=== PATIENT | male | born 2000 | race Asian ===

== ENCOUNTER 2019-03-10 14:12 | Inpatient (IN) ==
[2019-03-10 15:06] LABS: Appearance Urine Clear (Clear); Bilirubin Urine Negative (Negative); Blood Urine Negative (Negative); Color Urine Yellow; Glucose Urine UA Negative (Negative); Ketones Urine Negative (Negative); Leukocyte Esterase Urine Negative (Negative); Nitrite Urine Negative (Negative); Protein Urine Negative (Negative); Specific Gravity Urine 1.017 (1.000-1.030); Urobilinogen Urine Negative (Negative); pH Urine 6.5 (4.5-7.5)
[2019-03-10 15:12] LABS: Basophils # (auto) 0.07 K/uL (0-0.2); Basophils % (auto) 1.3 %; Eosinophils # (auto) 0.25 K/uL (0-0.5); Eosinophils % (auto) 4.8 %; Hematocrit (blood only) 43.1 % (42-52); Immature Granulocytes # (auto) 0.01 K/uL (0.00-0.02); Immature Granulocytes % (auto) 0.2 %; Lymphocytes # (auto) 1.21 K/uL (1.2-3.4); Lymphocytes % (auto) 23.3 %; Mean Corpuscular Hemoglobin 32.2 pg (25-34); Mean Corpuscular Hgb Conc 34.8 g/dL (32-36); Mean Corpuscular Volume 92.5 fL (80-100); Mean Platelet Volume 10.2 fL (7.4-10.4); Monocytes # (auto) 0.43 K/uL (0.11-0.59); Monocytes % (auto) 8.3 %; Neutrophils # (auto) 3.22 K/uL (1.4-6.5); Neutrophils % (auto) 62.1 %; Platelet Count 217 K/uL (130-400); RDW Coefficient of Variation 12.8 % (11.5-14.5); RDW Standard Deviation 43.2 fL (36.4-46.3); Red Blood Count 4.66 M/uL (4.7-6.1); White Blood Count 5.19 K/uL (4.8-10.8)
[2019-03-10 15:25] LABS: Amphetamines+Metham, Urine Neg (Neg); Barbiturates, Urine Neg (Neg); Benzodiazepine, Urine Neg (Neg); Cocaine, Urine Neg (Neg); MDMA (Ecstacy), Urine Neg (Neg); Methadone, Urine Neg (Neg); Opiate, Urine Neg (Neg); Phencyclidine, Urine Neg (Neg)
[2019-03-10 15:36] LABS: Albumin Level 4.4 gm/dl (3.4-5.0); BUN Creatinine Ratio 9.2 (10-20); Calcium 8.9 mg/dl (8.5-10.1); Creatinine Clr Calc Pharmacy 104.4 ml/min; Est GFR (African American) 137.4; Est GFR (Non-African American) 118.6; Potassium 3.8 mmol/L (3.5-5.1)
[2019-03-10 15:46] LABS: Albumin Globulin Ratio 1.4 (0.9-2); Globulin 3.1 gm/dl (2.5-4.0); Thyroid Stimulating Hormone 1.11 uIu/ml (0.300-4.500); Total Protein 7.5 gm/dl (6.4-8.2)
[2019-03-10 16:01] LABS: Acetaminophen < 2 ug/ml (10-30); Salicylate < 1.7 mg/dl (2.8-20)
--- NOTE | 2019-03-10 17:38 | Emergency Department Note ---
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 The patient reports that he went to [facility] and they referred to the ED because of his suicidal thoughts that he has been having for a month. He reports that they have become more frequently recently. The patient states that he has been under stress from school and his friends. He denies any specific suicidal plan. The patient denies any access to weapons. He mentions that he has been excessively sad lately, sleeping more, less energetic, changes in eating habits, and a loss of interest in things. He states that he occasionally smokes marijuana, but denies any other drug use. 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 and A total of 10 systems reviewed and were otherwise negative Physical Exam Vital Signs Vital Signs - 24 hr 03/10/19 14:25 Temperature 36.9 C Temperature Source Oral Sepsis Recent Fever Within 48 Hours No Sepsis New/Unexplained Change in Mental Status No Sepsis Action Taken by Nursing No Action Required Pulse Rate 82 Respiratory Rate 16 Respiratory Effort / Characteristics Non-Labored Respiratory Depth Normal Respiratory Pattern Regular Blood Pressure 129/83 Blood Pressure Mean 98 Blood Pressure Position Sitting Pulse Oximetry 98 Oxygen Delivery Method Room Air Physical Exam GENERAL: He is oriented to person, place, and time. He appears well-developed and well-nourished. He does not appear distressed. ____ HENT: Exam performed. - Head: Normocephalic and atraumatic. - Right Ear: External ear normal. No mastoid tenderness. - Left Ear: External ear normal. No mastoid tenderness. - Mouth/Throat: The oropharynx is clear and moist. No trismus in the jaw. No dental abscesses or uvula swelling. No oropharyngeal exudate or tonsillar abscesses. ____ EYES: Conjunctivae and EOM are normal. Pupils are equal, round, and reactive to light. Right eye exhibits no discharge. Left eye exhibits no discharge. No scleral icterus. ____ NECK: Normal range of motion. Neck supple. No JVD present. No spinous process tenderness present. No carotid bruit present. No rigidity. No tracheal deviation and normal range of motion present. No Brudzinski's sign and no Kernig's sign noted. ____ CV: Normal rate, regular rhythm, normal heart sounds and intact distal pulses. There is no peripheral edema. Palpable radial pulses bue. ____ PULM/CHEST: Effort normal and breath sounds normal. No respiratory distress. No stridor. He has no wheezes. He has no rales. - Chest Wall: He exhibits no tenderness. ____ ABD: The abdomen is soft. Bowel sounds are normal. He has no distension. No mass is present. There is no tenderness. There is no rebound, no guarding, no Sprague's sign and no tenderness at McBurney's point. Rovsig negative MUSC/SKEL: Normal range of motion. There is no peripheral edema, tenderness or deformity. LYMPH: No cervical adenopathy. ____ NEURO: He is alert and oriented to person, place, and time. He has normal strength. No cranial nerve deficit or sensory deficit. Coordination and gait normal. GCS eye subscore is 4. GCS verbal subscore is 5. GCS motor subscore is 6. cerbellar tests wnl. ____ SKIN: Skin is warm and dry. He is not diaphoretic. ____ PSYCH: He has a normal mood and affect. His behavior is normal. Judgment and thought content normal. ____ Course 1454: The patient was evaluated in room A9B, and a complete history and physical examination were performed. 1736: Vital signs stable. Patient medically cleared. Awaiting psychiatric placement. 1819: Patient accept admission to [address] [place] [address]. Medical Decision Making Medical Records Attestation: I reviewed the patient's medical records. Home Medications Current Medication List: was personally reviewed by me Laboratory Data Attestation: I reviewed the patient's lab results. Result diagrams: 03/10/19 14:56 03/10/19 14:56 Lab Results 03/10/19 03/10/19 03/10/19 Range/Units 14:05 14:05 14:56 WBC 5.19 (4.8-10.8) K/uL RBC 4.66 L (4.7-6.1) M/uL Hgb 15.0 (14.0-18.0) g/dL Hct 43.1 (42-52) % MCV 92.5 (80-100) fL MCH 32.2 (25-34) pg MCHC 34.8 (32-36) g/dL RDW Std Deviation 43.2 (36.4-46.3) fL RDW Coeff of Jeffery 12.8 (11.5-14.5) % Plt Count 217 (130-400) K/uL MPV 10.2 (7.4-10.4) fL Immature Gran % (Auto) 0.2 % Neut % (Auto) 62.1 % Lymph % (Auto) 23.3 % [place] % (Auto) 8.3 % Eos % (Auto) 4.8 % Baso % (Auto) 1.3 % Immature Gran # (Auto) 0.01 (0.00-0.02) K/uL Neut # (Auto) 3.22 (1.4-6.5) K/uL Lymph # (Auto) 1.21 (1.2-3.4) K/uL [place] # (Auto) 0.43 (0.11-0.59) K/uL Eos # (Auto) 0.25 (0-0.5) K/uL Baso # (Auto) 0.07 (0-0.2) K/uL Sodium (136-145) mmol/L Potassium (3.5-5.1) mmol/L Chloride (98-107) mmol/L Carbon Dioxide (21-32) mmol/L Anion Gap (3-11) BUN (7-18) mg/dl Creatinine (0.6-1.4) mg/dl Est Cr Clr Drug Dosing ml/min Est GFR ( Amer) Est GFR (Non-Af Amer) BUN/Creatinine Ratio (10-20) Glucose (70-99) mg/dl Calcium (8.5-10.1) mg/dl Total Bilirubin (0.2-1) mg/dl AST (15-37) U/L ALT (12-78) U/L Alkaline Phosphatase (45-117) U/L Total Protein (6.4-8.2) gm/dl Albumin (3.4-5.0) gm/dl Globulin (2.5-4.0) gm/dl Albumin/Globulin Ratio (0.9-2) TSH (0.300-4.500) uIu/ml Urine Color Yellow Urine Appearance Clear (Clear) Urine pH 6.5 (4.5-7.5) Ur Specific [place] 1.017 (1.000-1.030) Urine Protein Negative (Negative) Urine Glucose (UA) Negative (Negative) Urine Ketones Negative (Negative) Urine Blood Negative (Negative) Urine Nitrite Negative (Negative) Urine Bilirubin Negative (Negative) Urine Urobilinogen Negative (Negative) Ur Leukocyte Esterase Negative (Negative) Salicylates (2.8-20) mg/dl Urine Opiates Screen Neg (Neg) Ur Methadone, Qual Neg (Neg) Acetaminophen (10-30) ug/ml Urine Barbiturates Neg (Neg) Ur Phencyclidine (PCP) Neg (Neg) U Amphetamin/Meth Scrn Neg (Neg) MDMA (Ecstasy) Screen Neg (Neg) U Benzodiazepines Scrn Neg (Neg) Ur Cocaine Metabolite Neg (Neg) U Marijuana (THC) Screen Pos H (Neg) Ethyl Alcohol mg/dL (0-3) mg/dl 03/10/19 03/10/19 03/10/19 Range/Units 14:56 14:56 14:56 WBC (4.8-10.8) K/uL RBC (4.7-6.1) M/uL Hgb (14.0-18.0) g/dL Hct (42-52) % MCV (80-100) fL MCH (25-34) pg MCHC (32-36) g/dL RDW Std Deviation (36.4-46.3) fL RDW Coeff of Jeffery (11.5-14.5) % Plt Count (130-400) K/uL MPV (7.4-10.4) fL Immature Gran % (Auto) % Neut % (Auto) % Lymph % (Auto) % [place] % (Auto) % Eos % (Auto) % Baso % (Auto) % Immature Gran # (Auto) (0.00-0.02) K/uL Neut # (Auto) (1.4-6.5) K/uL Lymph # (Auto) (1.2-3.4) K/uL [place] # (Auto) (0.11-0.59) K/uL Eos # (Auto) (0-0.5) K/uL Baso # (Auto) (0-0.2) K/uL Sodium 138 (136-145) mmol/L Potassium 3.8 (3.5-5.1) mmol/L Chloride 105 (98-107) mmol/L Carbon Dioxide 28 (21-32) mmol/L Anion Gap 5.0 (3-11) BUN 9 (7-18) mg/dl Creatinine 0.93 (0.6-1.4) mg/dl Est Cr Clr Drug Dosing 104.4 ml/min Est GFR ( Amer) 137.4 Est GFR (Non-Af Amer) 118.6 BUN/Creatinine Ratio 9.2 L (10-20) Glucose 88 (70-99) mg/dl Calcium 8.9 (8.5-10.1) mg/dl Total Bilirubin 1.0 (0.2-1) mg/dl AST 12 L (15-37) U/L ALT 20 (12-78) U/L Alkaline Phosphatase 93 (45-117) U/L Total Protein 7.5 (6.4-8.2) gm/dl Albumin 4.4 (3.4-5.0) gm/dl Globulin 3.1 (2.5-4.0) gm/dl Albumin/Globulin Ratio 1.4 (0.9-2) TSH 1.110 (0.300-4.500) uIu/ml Urine Color Urine Appearance (Clear) Urine pH (4.5-7.5) Ur Specific [place] (1.000-1.030) Urine Protein (Negative) Urine Glucose (UA) (Negative) Urine Ketones (Negative) Urine Blood (Negative) Urine Nitrite (Negative) Urine Bilirubin (Negative) Urine Urobilinogen (Negative) Ur Leukocyte Esterase (Negative) Salicylates < 1.7 L (2.8-20) mg/dl Urine Opiates Screen (Neg) Ur Methadone, Qual (Neg) Acetaminophen < 2 L (10-30) ug/ml Urine Barbiturates (Neg) Ur Phencyclidine (PCP) (Neg) U Amphetamin/Meth Scrn (Neg) MDMA (Ecstasy) Screen (Neg) U Benzodiazepines Scrn (Neg) Ur Cocaine Metabolite (Neg) U Marijuana (THC) Screen (Neg) Ethyl Alcohol mg/dL < 3.0 (0-3) mg/dl Blood Pressure Blood Pressure Findings: Normal blood pressure Blood Pressure Disposition: did not require urgent referral MDM Narrative Patient accept admission to [address] [place] [address]. Impression & Plan Suicidal ideation, Depression Discharge Plan Visit Data *Final* Discharge Date/Time: 03/10/19 18:30 Chief Complaint: Mental Health Evaluation Stated Complaint: MENTAL HEALTH EVALUATION ED Provider: Rickey Alexandre Discharge Problem: Suicidal ideation, Depression Patient Disposition: Admitted As Inpatient Discharge Instructions Interventions: ED Discharge Assessment Last Done: 03/10/19 18:30 Discharge Problem: Depression Qualifiers: Depression Type: unspecified Qualified Code(s): F32.9 - Major depressive disorder, single episode, unspecified The scribe's documentation has been prepared under my direction and personally reviewed by me in its entirety. I confirm that the note above accurately reflects all work, treatment, procedures, and medical decision making performed by me.
[2019-03-10] MEDS ORDERED: ACETAMINOPHEN 325 MG TAB PO PRN (17:52)
[2019-03-10] MEDS ORDERED: MAGNESIUM HYDROXIDE SUSP 30 ML UDC PO PRN (17:52)
[2019-03-10] MEDS ORDERED: ALUMINUM/MAGNESIUM SUSP 30 ML UDC PO PRN (17:52)
[2019-03-10] MEDS ORDERED: SODIUM CHLORIDE 0.65% NA SOLN 45 ML (OCEAN) PRN (17:52)
[2019-03-10] MEDS ORDERED: BISMUTH SUBSALICYLATE PER ML OMNICELL CHARGE PO PRN (17:52)
[2019-03-10] MEDS ORDERED: ALBUTEROL HFA INHALER 8.5 GM INH PRN (17:55)
[2019-03-10 18:32] VITALS: O2SAT 97
--- NOTE | 2019-03-11 13:59 | History & Physical ---
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 He reports limited communication with parents, but good support from friends. He is struggling academically and doing poorly in school, as he has not been functioning due to the severity of his depression. He has no outpatient providers, and is declining antidepressant medication, due to fears that he would be calm dependent on it. He does report abusing cannabis, and thinks it is making him feel worse. He is willing for inpatient treatment, which is medically necessary due to the severity of his symptoms and risk for suicide if discharged. (1) Suicidal ideation: Every 15 minute checks for safety. Encourage group attendance and participation. Work on healthy coping skills and discharge safety plan. Encourage family meeting with his primary supports. He indicates he does not share details of his personal life with parents, and they are not aware he has been struggling emotionally Present on Admission?: Yes (2) Depression: 03/11 -discussed diagnoses and treatment recommendations, including the option of antidepressant medication, which he is declining. Discussed the role of antidepressants, what they can help with and what they do not, the role of psychotherapy, good self-care, and behavioral techniques to improve mood. Also discussed recommendations to abstain from other psychoactive substances, and patient reports he has been abusing THC and thinks it is making him feel worse. Continue to provide psychoeducation and support about treatment options, as well as motivational interviewing. -Coordinate care with [facility], and refer him for outpatient therapy. -Coordinate with the [place] regarding his academic standing. Depression Type: unspecified Qualified Code(s): F32.9 - Major depressive disorder, single episode, unspecified Present on Admission?: Yes (3) Asthma: Continue albuterol inhaler as needed. Patient reports hospitalization 2 months ago for pneumomediastinum. He says he was prescribed an inhaler, but has stopped using it, and was supposed to follow up with a manager body, but did not. Refer him to [facility] for outpatient follow-up. Present on Admission?: Yes Risk Factors Assessment Male: No Do You Have Access To A Gun?: No Health Problems: Yes Mental Health Diagnoses: Yes Substance Use Disorders: Yes Previous Attempt: No Previous Psychiatric Hospitalization: No Hopelessness: Yes Smoker: No Protective Factors Assessment Jehovah'S Witness Beliefs: No : No Responsible for Young Children: No Employed: No Stable Relationships: Yes Supportive Family: Yes Good Rapport with Provider: No Psychiatric History Identifying Data GLEN GARCIA is a 18-year-old [employer] student from the [place] area who was referred to the hospital by [facility] after he presented there with suicidal ideation and multiple plans. He was admitted on 03/10/19 17:53 on a 201 voluntary commitment. Chief Complaint "I think it's been building". History of Present Illness The patient presented to the ER yesterday, 03/10/2019, reporting worsening depression over the past month. He endorsed suicidal thoughts to cut himself, overdose on pills, or shoot himself, stating "whichever is fastest." He reported high anxiety, with palpitations, shakiness, poor focus, and rapid breathing. He endorsed poor sleep overnight (3-4 hours a night), with inability to fall asleep and then sleeping through the day and missing class. He reported poor supports locally, and poor academic performance. He reported stress due to questioning his gender identity, and struggled to elaborate on this. He reported regular marijuana use and drug screen was positive for THC; labs were otherwise normal. He agreed to sign in voluntarily. On my assessment today, he reports his mood has been worsening "for a long time, I just didn't notice it until about a month ago." In the past month, he has been sleeping excessively, smoking more pot, not enjoying things as much, isolating and not socializing, not going to class or keeping up with assignments. Appetite is decreased, but eats fast food after smoking pot, and weight has been stable. He started having suicidal thoughts in the past 2-4 months, which have become "more persistent, more graphic, specific." He reports thinking "there's really nothing stopping me from ending my life, I could do it physically...but I guess my friends would be really upset if I did it, and maybe my family too." He went to [facility] yesterday as "I just didn't want to feel like that any more." He states he had considered therapy at age 14 when he told his parents he was cowart, but they would only pay for a hinduism therapist, so he declined. States his relationship with parents has been distant ever since, and he doesn't talk to them about personal things anymore. Reports anxiety that started around age 10-11 when he "realized I was cowart," and is now exacerbated by relationships and school. Reports "a little bit" of relationship stress, stating his only relationship (earlier this year) was "bad," and as a result he "alienated all of my friends." After some discussion he states the relationship is "probably the whole reason" he is depressed. States he met his ex-boyfriend, B, last year when he was a freshman, and "got me into drag, we started doing that together." Another male, R, then transferred in and started hanging out with his friend B, and they were "not dating, but together." R then started coming over to the patient's room and they were intimate, but B found out and was very hurt and upset with the patient. The patient and R continued to spend time together and ultimately B found out and "really freaked out on me, said some things." He was willing to forgive Glen if he "cut R out, and I tried to but I couldn't." The patient and R then had a relationship for a while, although he says "I really didn't want to be, but he was the only person I had," as all his other friends withdrew because of the way he'd treated B. R ultimately broke up with him "because his brother was a drug addict, and he didn't want to drag me through it." He had been planning to hang out with R all summer as they are both from the [place] area, "but then I spent the summer alone." He still has sporadic contact with R, and is again friends with B. States he feels upset whenever he thinks about it, because "I let it all happen, didn't even like him," also states he "thinks he just liked me because of the way I look." Reports episode of pneumomediastinum in Dec. just prior to returning to school, was hospitalized for a few days, and was supposed to follow up with a manager body, but has not done so. He was also supposed to use an inhaler (not Albuterol, can't recall name) bid, but hasn't been doing that either. He does not want to consider medications, stating he is worried he would be "dependent" on them, noting a tendency to "abuse anything that makes me feel better." Reports increasing his marijuana use, and thinks it is making him feel worse in the long run. Past Psychiatric History Previous Psych History: Denies Current Psychiatric Diagnosis: MDD Outpatient Services: None Previous Psych Admissions: None Do You Have Access To A Gun?: No History of Previous Suicide Attempt: No Past Medication Trials: None Allergies Allergy/AdvReac Type Severity Reaction Status Date / Time amoxicillin Allergy Hives Unverified 03/10/19 14:58 cashew nut Allergy Anaphylaxis Unverified 03/10/19 14:58 Home Medications Home Medications Medication Instructions Recorded Confirmed Type albuterol sulfate 2 inh INHALATION QID PRN 03/10/19 03/10/19 History Family History Family History of: Doesn't Know Family Mental Health History Comment: Not discussed in his family Alcohol History Hx of Alcohol Use Over the Past 12 Months: No AUDIT Total Score: 0 Smoking Use Have You Smoked or Used Tobacco Products in the Last 30 Days: No Smoking Status: Never smoker Substance History Hx of Prescription Med Misuse Over the Past 12 Months: No Hx of Over the Counter Med Misuse Over the Past 12 Months: No Hx of Inhalent Misuse Over the Past 12 Months: No Hx of Organic Substance Use Over the Past 12 Months: Yes (marijuana 3-4x/week, 2-3 bowls) Hx of Illegal Substances/Street Drug Use Over Past 12 Months: No Problems as a Result of Past Substance Use: None Identified Personal History Living Arrangements: Dorm Childhood: Grew up in [facility], raised by bother parents. Only child Highest Grade Completed: Some College Highest Grade Completed Comment: Sophomore at [employer], majoring in Sudanese and sociology, with minor in Slovak. GPA last semester was 3.6, now struggling, missing morning classes, "doing really bad." Employment Status: Student Marital Status: Single Number Of Children: 0 Beliefs That Will Affect Care: None Hx Traumatic Life Events: Yes Psychological Trauma History Comment: Kicked out of his [employer] HS at age 16 "for being cowart." Had been going to [employer] school his whole life prior to that, and school administrators looked up his social media profile to get proof. Feels it "defined that whole part of my life," as he lost his friend group and was "left out," had to transfer to a new school, and went from a class with 70 kids to one with 700 friends. Patient History Medical History No significant past medical history (Acute) Social History Preferred Language: Sudanese Communication Ability: Effective Powder Operator Required: No Beliefs That Will Affect Care: None Feels Safe at Home: Yes Smoking Status: Never smoker Review of Systems Review of Systems: All systems reviewed & are unremarkable except as noted in HPI & below Physical Exam Psychiatric: Orientation: alert, oriented x 3 and cooperative Apperance: appropriately dressed, appropriately groomed and appeared stated age Eye Contact: good eye contact Motor Behavior: steady gait and station mild fidgeting Spontaneous, soft Affect: + depressed affect, + anxious affect, + constricted affect and mood congruent with affect Mood: + depressed mood and + anxious mood Thought Process: goal directed thought process Thought Content: + cognitive distortions, + hopelessness, + worthlessness, + guilt and + self deprecation Suicidal Thoughts: + reports suicidal thoughts Homicidal Thoughts: denies homicidal thoughts Hallucinations: no auditory hallucinations and no visual hallucinations Cognition: recent memory grossly intact, remote memory grossly intact, attention grossly intact and language grossly intact Estimated Intelligence: consistent with education level Insight: + fair insight Judgement: + fair judgement Vital Signs (Past 24 Hours): Last Vital Signs Temp 36.4 C L 03/11/19 06:50 Pulse 93 H 03/11/19 06:51 Resp 18 03/11/19 06:50 BP 110/75 03/11/19 06:51 Pulse Ox 97 03/10/19 19:23 Exam Statement: A physical exam was performed in the ER prior to admission to the unit by Dr. Alexandre. I accept that physical as correct/medical clearance for the inpatient physical exam. Results & Data Laboratory Results Laboratory Results - last 24 hr 03/10/19 03/10/19 03/10/19 14:05 14:05 14:05 WBC RBC Hgb Hct MCV MCH MCHC RDW Std Deviation RDW Coeff of Jeffery Plt Count MPV Immature Gran % (Auto) Neut % (Auto) Lymph % (Auto) Dale % (Auto) Eos % (Auto) Baso % (Auto) Immature Gran # (Auto) Neut # (Auto) Lymph # (Auto) Dale # (Auto) Eos # (Auto) Baso # (Auto) Sodium Potassium Chloride Carbon Dioxide Anion Gap BUN Creatinine Est Cr Clr Drug Dosing Est GFR ( Amer) Est GFR (Non-Af Amer) BUN/Creatinine Ratio Glucose Calcium Total Bilirubin AST ALT Alkaline Phosphatase Total Protein Albumin Globulin Albumin/Globulin Ratio TSH Urine Color Yellow Urine Appearance Clear Urine pH 6.5 Ur Specific [place] 1.017 Urine Protein Negative Urine Glucose (UA) Negative Urine Ketones Negative Urine Blood Negative Urine Nitrite Negative Urine Bilirubin Negative Urine Urobilinogen Negative Ur Leukocyte Esterase Negative Salicylates Urine Opiates Screen Neg Ur Methadone, Qual Neg Acetaminophen Urine Barbiturates Neg Ur Phencyclidine (PCP) Neg U Amphetamin/Meth Scrn Neg MDMA (Ecstasy) Screen Neg U Benzodiazepines Scrn Neg Ur Cocaine Metabolite Neg U Marijuana (THC) Screen Pos H U Marijuana THC Carboxy Pending Ethyl Alcohol mg/dL 03/10/19 03/10/19 03/10/19 14:56 14:56 14:56 WBC 5.19 RBC 4.66 L Hgb 15.0 Hct 43.1 MCV 92.5 MCH 32.2 MCHC 34.8 RDW Std Deviation 43.2 RDW Coeff of Jeffery 12.8 Plt Count 217 MPV 10.2 Immature Gran % (Auto) 0.2 Neut % (Auto) 62.1 Lymph % (Auto) 23.3 Dale % (Auto) 8.3 Eos % (Auto) 4.8 Baso % (Auto) 1.3 Immature Gran # (Auto) 0.01 Neut # (Auto) 3.22 Lymph # (Auto) 1.21 Dale # (Auto) 0.43 Eos # (Auto) 0.25 Baso # (Auto) 0.07 Sodium 138 Potassium 3.8 Chloride 105 Carbon Dioxide 28 Anion Gap 5.0 BUN 9 Creatinine 0.93 Est Cr Clr Drug Dosing 104.4 Est GFR ( Amer) 137.4 Est GFR (Non-Af Amer) 118.6 BUN/Creatinine Ratio 9.2 L Glucose 88 Calcium 8.9 Total Bilirubin 1.0 AST 12 L ALT 20 Alkaline Phosphatase 93 Total Protein 7.5 Albumin 4.4 Globulin 3.1 Albumin/Globulin Ratio 1.4 TSH 1.110 Urine Color Urine Appearance Urine pH Ur Specific [place] Urine Protein Urine Glucose (UA) Urine Ketones Urine Blood Urine Nitrite Urine Bilirubin Urine Urobilinogen Ur Leukocyte Esterase Salicylates < 1.7 L Urine Opiates Screen Ur Methadone, Qual Acetaminophen < 2 L Urine Barbiturates Ur Phencyclidine (PCP) U Amphetamin/Meth Scrn MDMA (Ecstasy) Screen U Benzodiazepines Scrn Ur Cocaine Metabolite U Marijuana (THC) Screen U Marijuana THC Carboxy Ethyl Alcohol mg/dL 03/10/19 14:56 WBC RBC Hgb Hct MCV MCH MCHC RDW Std Deviation RDW Coeff of Jeffery Plt Count MPV Immature Gran % (Auto) Neut % (Auto) Lymph % (Auto) Dale % (Auto) Eos % (Auto) Baso % (Auto) Immature Gran # (Auto) Neut # (Auto) Lymph # (Auto) Dale # (Auto) Eos # (Auto) Baso # (Auto) Sodium Potassium Chloride Carbon Dioxide Anion Gap BUN Creatinine Est Cr Clr Drug Dosing Est GFR ( Amer) Est GFR (Non-Af Amer) BUN/Creatinine Ratio Glucose Calcium Total Bilirubin AST ALT Alkaline Phosphatase Total Protein Albumin Globulin Albumin/Globulin Ratio TSH Urine Color Urine Appearance Urine pH Ur Specific [place] Urine Protein Urine Glucose (UA) Urine Ketones Urine Blood Urine Nitrite Urine Bilirubin Urine Urobilinogen Ur Leukocyte Esterase Salicylates Urine Opiates Screen Ur Methadone, Qual Acetaminophen Urine Barbiturates Ur Phencyclidine (PCP) U Amphetamin/Meth Scrn MDMA (Ecstasy) Screen U Benzodiazepines Scrn Ur Cocaine Metabolite U Marijuana (THC) Screen U Marijuana THC Carboxy Ethyl Alcohol mg/dL < 3.0 Current Inpatient Medications Current Inpatient Medications: Current Inpatient Medications Acetaminophen (Tylenol) 650 mg PO Q4H PRN PRN Reason: Headache or Minor Fever Stop: 04/09/19 17:51 Al Hydrox/Mg Hydrox/Simethicone (Maalox) 30 ml PO Q4H PRN PRN Reason: GI Upset Stop: 04/09/19 17:51 Albuterol (Proair Hfa) 2 puffs INH QID PRN PRN Reason: Shortness Of Breath Bismuth Subsalicylate (Kaopectate) 15 ml PO PRN PRN PRN Reason: Loose Stool Stop: 04/09/19 17:51 Hydroxyzine HCl (Vistaril) 25 mg PO Q4H PRN PRN Reason: Anxiety Stop: 04/09/19 17:51 Hydroxyzine HCl (Vistaril) 50 mg PO HSZ PRN PRN Reason: Insomnia Stop: 04/09/19 17:51 Magnesium Hydroxide (Milk Of Magnesia) 30 ml PO DAILY PRN PRN Reason: Constipation Stop: 04/09/19 17:51 Sodium Chloride ([place] Nasal) 1 - 2 sprays NA PRN PRN PRN Reason: Nasal Dryness/Congestion Stop: 04/09/19 17:51
--- NOTE | 2019-03-12 12:48 | Psychiatric Progress Note ---
Date of Service March 12, 2019 Impression / Recommendations Impression 18-year-old [employer] student from the [place] area who has no psychiatric history and presents with worsening depression and suicidal thoughts for the past month, with multiple plans and access to the means, and significant relationship stressors. He reports limited communication with parents, but good support from friends. He is struggling academically and doing poorly in school, as he has not been functioning due to the severity of his depression. He has no outpatient providers, and is declining antidepressant medication, due to fears that he would be calm dependent on it. He does report abusing cannabis, and thinks it is making him feel worse. He is willing for inpatient treatment, which is medically necessary due to the severity of his symptoms and risk for suicide if discharged. (1) Suicidal ideation: Every 15 minute checks for safety. Encourage group attendance and participation. Work on healthy coping skills and discharge safety plan. Encourage family meeting with his primary supports. He indicates he does not share details of his personal life with parents, and they are not aware he has been struggling emotionally 03/12 - Suicidality is persistent, episodic during the day and heavy at night - Pt states he does not feel his is better able to push back against the thoughts - Unable to contract for safety outside of the hospital setting (2) Depression: 03/11 -discussed diagnoses and treatment recommendations, including the option of antidepressant medication, which he is declining. Discussed the role of antidepressants, what they can help with and what they do not, the role of psychotherapy, good self-care, and behavioral techniques to improve mood. Also discussed recommendations to abstain from other psychoactive substances, and patient reports he has been abusing THC and thinks it is making him feel worse. Continue to provide psychoeducation and support about treatment options, as well as motivational interviewing. -Coordinate care with [facility], and refer him for outpatient therapy. -Coordinate with the University regarding his academic standing. 03/12 - Continues to verbalize desire to refrain from medications to wildlife refuge manager mood. Pt admits to being naive to coping strategies, and is interested in utilizing therapy and behavioral techniques to manage his mood initially - Reviewed again that medications are an option, and can be considered if his mood does not improve - Still requires solidified aftercare plan (3) Asthma: Continue albuterol inhaler as needed. Patient reports hospitalization 2 months ago for pneumomediastinum. He says he was prescribed an inhaler, but has stopped using it, and was supposed to follow up with a administrative secretary, but did not. Refer him to [facility] for outpatient follow-up. Risk Factors Assessment Male: No Do You Have Access To A Gun?: No Health Problems: Yes Mental Health Diagnoses: Yes Substance Use Disorders: Yes Previous Attempt: No Previous Psychiatric Hospitalization: No Hopelessness: Yes Smoker: No Protective Factors Assessment Scientology Beliefs: No : No Responsible for Young Children: No Employed: No Stable Relationships: Yes Supportive Family: Yes Good Rapport with Provider: No Interval History Identifying Information ASIF GARCIA is a 18-year-old [employer] student from the [place] area who was referred to the hospital by [facility] after he presented there with suicidal ideation and multiple plans. He was admitted on 03/10/19 17:53 on a 201 voluntary commitment. Chief Complaint "I am pretty good during the day, when I am interacting with everyone. The nights are pretty rough." Review of Systems Notes Constitutional: reports difficulty falling and staying asleep Cardiovascular: denied Respiratory: denied Gastrointestinal: denied Neurological: denied Psychiatric: denies symptoms other than stated above Total of at least 10 systems reviewed, pertinent positives as above and in HPI. Sleep Information Total Hours of Sleep: 6 Sleep Comments: pt q-15 minute checks Meal Information Percent Meal Consumed - Breakfast: 0 Percent Meal Consumed - Dinner: 100 Nutrition Comment: pt. asleep Subjective Subjective Patient was seen & assessed and interval progress reviewed with nursing and social work. Staff reports the patient has been attending groups, appearing somewhat timid. He admits to significant anxiety related to social stressors and feeling unable to talk with parents about his mental health. Patient admitted to desire to reduce his marijuana use. Patient was seen today to assess progress since admission. He admits that his mood is "pretty good" during the day, as he is attending groups and distracted by interactions with peers. Patient does admit that "the nights are pretty rough." The patient admits to ongoing suicidality and hopelessness. He states that he continues to have thoughts to hurt himself episodically during the day, but they get much worse in the evening. Patient states he does not feel he has been better able to push back against these thoughts. We did discuss various coping strategies that could be helpful in this situation, and patient is willing to try some of them. Patient admits he is not sleeping well and was encouraged to consider utilizing hydroxyzine to improve his sleep. Patient admits that his mood is improving slightly now that he is "around other people." He admits that his mood is significantly worse in the evenings when he is by himself, even on this unit. Patient was asked to consider who he might like to involve in a family meeting, he is unsure at this time. Patient denies acute needs or concerns presently. Physical Exam Psychiatric Orientation: alert, oriented x 3 and cooperative (Timid, but pleasant) Apperance: appropriately dressed (Casually, in sweater and scrub pants), appropriately groomed and appeared stated age Eye Contact: good eye contact Motor Behavior: steady gait and station and no abnormal motor movements Speech: normal rate/rhythm/volume of speech (Soft tone, spontaneous but timid) Affect: + depressed affect, + anxious affect and mood congruent with affect Mood: + depressed mood and + anxious mood Thought Process: goal directed thought process, clear/coherent thought process and thought association intact Thought Content: reality based without delusions, + hopelessness and + worthlessness Suicidal Thoughts: denies suicidal plan; + reports suicidal thoughts (Admits to continued suicidal ideation) Unable to contract for safety outside of the hospital setting, having difficulty pushing back against his suicidal thoughts he is experiencing multiple times per day Homicidal Thoughts: denies homicidal thoughts Hallucinations: no auditory hallucinations and no visual hallucinations Cognition: attention grossly intact and language grossly intact Insight: + fair insight Judgement: + fair judgement Vital Signs (Past 24 Hours) Last Vital Signs Temp 36.4 C L 03/12/19 06:49 Pulse 76 03/12/19 06:50 Resp 18 03/12/19 06:49 BP 124/86 03/12/19 06:50 Pulse Ox 97 03/10/19 19:23 Results & Data Current Inpatient Medications Current Inpatient Medications: Current Inpatient Medications Acetaminophen (Tylenol) 650 mg PO Q4H PRN PRN Reason: Headache or Minor Fever Stop: 04/09/19 17:51 Al Hydrox/Mg Hydrox/Simethicone (Maalox) 30 ml PO Q4H PRN PRN Reason: GI Upset Stop: 04/09/19 17:51 Albuterol (Proair Hfa) 2 puffs INH QID PRN PRN Reason: Shortness Of Breath Bismuth Subsalicylate (Kaopectate) 15 ml PO PRN PRN PRN Reason: Loose Stool Stop: 04/09/19 17:51 Hydroxyzine HCl (Vistaril) 25 mg PO Q4H PRN PRN Reason: Anxiety Stop: 04/09/19 17:51 Hydroxyzine HCl (Vistaril) 50 mg PO HSZ PRN PRN Reason: Insomnia Stop: 04/09/19 17:51 Magnesium Hydroxide (Milk Of Magnesia) 30 ml PO DAILY PRN PRN Reason: Constipation Stop: 04/09/19 17:51 Sodium Chloride ([place] Nasal) 1 - 2 sprays NA PRN PRN PRN Reason: Nasal Dryness/Congestion Stop: 04/09/19 17:51 Mental Health & Subst Abuse Tx Therapist Name of Therapist: [facility] first appointment today Centrifugal Wax Molder Name of Centrifugal Wax Molder: None Post Discharge Appointments Primary Care Physician Name Of Family Doctor: Florentino Barajas MD, [facility] (1) Depression Depression Type: unspecified Qualified Code(s): F32.9 - Major depressive disorder, single episode, unspecified
[2019-03-13] MEDS ORDERED: FLUOXETINE HCL 10 MG CAP PO STA (13:01)
--- NOTE | 2019-03-13 16:08 | Psychiatric Progress Note ---
Date of Service March 13, 2019 Impression / Recommendations Impression 18-year-old [employer] [facility] [employer] student from the [place] area who has no psychiatric history and presents with worsening depression and suicidal thoughts for the past month, with multiple plans and access to the means, and significant relationship stressors. He reports limited communication with parents, but good support from friends. He is struggling academically and doing poorly in school, as he has not been functioning due to the severity of his depression. He has no outpatient providers, and is declining antidepressant medication, due to fears that he would be calm dependent on it. He does report abusing cannabis, and thinks it is making him feel worse. He is willing for inpatient treatment, which is medically necessary due to the severity of his symptoms and risk for suicide if discharged. Today the patient clarifies that although he expressed suicidal "plans" prior to and at the time of admission, and while he endorses severely depressed mood and recurrent, intrusive thoughts of suicide, he points out that his plans were not well-developed and that, in fact, he did not have access to a gun (he had mentioned shooting himself), nor did he believe that he had access to lethal drugs or poisons. He clarifies, with some perceived ambivalence, that he did not have any actual suicidal intent. He did, however, hope that reports of his suicidality would mitigate in favor of having the student health service assist him in finding outpatient services and a temporary break from the stresses of academic life. (The patient had dropped 2 courses in the spring 2018's semester, and is taking a full load in the current semesterand with his depression is having difficulty keeping up.) While he had not exactly anticipated inpatient psychiatric hospitalization. He also says that he is glad that he is here and feels that it is being helpful to him, not only in terms of allowing him to have a break, but to allow him to work on coping strategies and avail himself of treatment. 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 He derives no sexual pleasure associated with dressing as a woman. He also says that he identifies is cowart, but indicates that he does not feel that he has gender dysphoria. Today, I am offering the patient a trial of fluoxetine 10 mg daily in the form of a test dose, and, as tolerated, we will continue 10 mg daily and titrate as indicated. (1) Suicidal ideation: Every 15 minute checks for safety. Encourage group attendance and participation. Work on healthy coping skills and discharge safety plan. Encourage family meeting with his primary supports. He indicates he does not share details of his personal life with parents, and they are not aware he has been struggling emotionally 03/12 - Suicidality is persistent, episodic during the day and heavy at night - Pt states he does not feel his is better able to push back against the thoughts - Unable to contract for safety outside of the hospital setting 03/13 -Today, the patient reports that he has had no thoughts of suicide during the course of the day. -He acknowledges that his previous thoughts of suicide were not particularly well formed. Although today he says that he did not have imminent intent to act on his suicidal thoughts, and although he does not believe that he had the means to act on the thoughts expressed, he sought treatment because he is becoming progressively more alarmed by the intrusive and persistent nature of his suicidal thoughts. Present on Admission?: Yes (2) Depression: 03/11 -discussed diagnoses and treatment recommendations, including the option of antidepressant medication, which he is declining. Discussed the role of antidepressants, what they can help with and what they do not, the role of psychotherapy, good self-care, and behavioral techniques to improve mood. Also discussed recommendations to abstain from other psychoactive substances, and patient reports he has been abusing THC and thinks it is making him feel worse. Continue to provide psychoeducation and support about treatment options, as well as motivational interviewing. -Coordinate care with [facility], and refer him for outpatient therapy. -Coordinate with the [place] regarding his academic standing. 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 Pt admits to being naive to coping strategies, and is interested in utilizing therapy and behavioral techniques to manage his mood initially - Reviewed again that medications are an option, and can be considered if his mood does not improve - Still requires solidified aftercare plan 03/13 -The patient agreed to a trial of Prozac 10 mg twice a day. Material risks and anticipated benefits of Prozac and other selective serotonin reuptake inhibitors were reviewed with the patient. He asked a number of questions and indicated understanding. He was advised that side effects may occur before be nefit is achieved, and that these side effects may tend to improve or resolve, so that if possible he should continue the treatment, as tolerated. Present on Admission?: Yes (3) Asthma: Continue albuterol inhaler as needed. Patient reports hospitalization 2 months ago for pneumomediastinum. He says he was prescribed an inhaler, but has stopped using it, and was supposed to follow up with a online trader, but did not. Refer him to [facility] for outpatient follow-up. Present on Admission?: Yes Inventory Assets Strengths: Patient reports that he has a supportive family and supportive friends. He also is intelligent and is motivated to academic success in college. Needs: Resolution of suicidal thoughts. Improved individual coping strategies. Euthymic mood. Risk Factors Assessment Male: Yes Do You Have Access To A Gun?: No Health Problems: Yes Mental Health Diagnoses: Yes Substance Use Disorders: Yes Previous Attempt: No Previous Psychiatric Hospitalization: No Hopelessness: Yes Smoker: No Protective Factors Assessment Presybeterian Beliefs: No : No Responsible for Young Children: No Employed: No Stable Relationships: Yes Supportive Family: Yes (While the patient tells us that his parents are supportive, he also tells us that they knowingly Center cowart son to a conservative [employer] that, among other things, apparently suggested conversion therapy.) Good Rapport with Provider: No Absence of Any Risk Factors Above: No Interval History Identifying Information ASIF GARCIA is a 18-year-old [employer] student from the [place] area who was referred to the hospital by [facility] after he presented there with suicidal ideation and multiple plans. He was admitted on 03/10/19 17:53 on a 201 voluntary commitment. Chief Complaint "Depression". Review of Systems Sleep Information Total Hours of Sleep: 6.25 Sleep Comments: pt q-15 minute checks Meal Information Percent Meal Consumed - Breakfast: 0 Percent Meal Consumed - Lunch: 75 Percent Meal Consumed - Dinner: 100 Nutrition Comment: pt. asleep Subjective Subjective Patient was seen & assessed and interval progress reviewed with treatment team. I met individually with the patient today in order to assess his current mental status, evaluate his response to treatment, coordinate any recommended change in his treatment regimen with the patient, and address issues and concerns that might arise. The patient reviewed the circumstances that preceded his admission. He indicates that he has been feeling depressed in various degrees for approximately the past 6 months, but for the past week and a half he has been feeling more depressed. He acknowledges that he reference to suicidality at the [facility]. Specifically, he acknowledges that he told him that he was considering overdosing on medications or shooting himself with a gun. However, he also says that he was aware at the time that he had no access to what he would consider to be a lethal supply of medications or other poisons. He also notes that he would not be able to illegally purchased a gun, has no knowledge of how he might go about purchasing a gun illegally, and says that he is strongly against firearms and would never actually use a firearm to physically harm himself. Nevertheless, the suicidal thoughts are becoming more pronounced in the community, and the patient was alarmed by them and wanted treatment. He said that his expectation was that he would be offered a "break" from various stressors at school and he also recognized that he might be allowed to "go someplace for a break." He also tells me that he did not exactly expect to be admitted to a psychiatric unitalthough he does say that he is in agreement with the hospitalization. The patient also talked about the circumstances that he feels contributed to his depression. These include a romantic disappointment and academic stress. Although not specifically identified as such by the patient, during the encounter we discussed the patient's tendency to experience significant guilt and shame. He tells me that his parents are "fully supportive" of his sexuality and his interest and participating in "drag" shows, he also tells me that his parents sent him to a orthodox, adventist [employer] school that, upon learning that he is cowart, indirectly suggested conversion therapy and when he declined, he was expelled from the school. Much of the encounter today focused on reviewing various treatment options. The patient has been somewhat reluctant to accept psychiatric medications. I advised that given the length and severity of his depression we would recommend a psychiatric medication such as Prozac. The patient agreed to a trial of Prozac. Material risks and anticipated benefits of fluoxetine (Prozac) reviewed with the patient. He asked a number of questions, and indicated a sense and understanding. Physical Exam Psychiatric Orientation: alert and oriented x 3 Apperance: appropriately dressed, appropriately groomed and appeared stated age Eye Contact: + poor eye contact Motor Behavior: + psychomotor retardation Initially, the patient's speech was generally nonspontaneous. However, he became louder and more animated during the course of the encounter and although his speech was soft and somewhat slowed, his speech eventually was delivered Affect: + depressed affect and + anxious affect Mood: + depressed mood "Somewhat better." Thought Process: goal directed thought process, linear/logical thought process and clear/coherent thought process Thought Content: reality based without delusions The patient reports that he has not had any suicidal thoughts today. However, he remains distressed about the intrusive, somewhat ego-dystonic nature of the suicidal thoughts that he has been having prior to admission. Homicidal Thoughts: denies homicidal thoughts Hallucinations: no auditory hallucinations Cognition: recent memory grossly intact, remote memory grossly intact, attention grossly intact and language grossly intact Estimated Intelligence: + above average estimated intelligence Insight: + fair insight Judgement: good judgement Vital Signs (Past 24 Hours) Last Vital Signs Temp 36.6 C 03/13/19 06:00 Pulse 76 03/13/19 06:00 Resp 16 03/13/19 06:00 BP 103/67 03/13/19 06:00 Pulse Ox 97 03/10/19 19:23 Results & Data Laboratory Results Laboratory Results - last 24 hr 03/10/19 14:05 U Marijuana THC Carboxy 97 A Current Inpatient Medications Current Inpatient Medications: Current Inpatient Medications Acetaminophen (Tylenol) 650 mg PO Q4H PRN PRN Reason: Headache or Minor Fever Stop: 04/09/19 17:51 Al Hydrox/Mg Hydrox/Simethicone (Maalox) 30 ml PO Q4H PRN PRN Reason: GI Upset Stop: 04/09/19 17:51 Albuterol (Proair Hfa) 2 puffs INH QID PRN PRN Reason: Shortness Of Breath Bismuth Subsalicylate (Kaopectate) 15 ml PO PRN PRN PRN Reason: Loose Stool Stop: 04/09/19 17:51 Hydroxyzine HCl (Vistaril) 25 mg PO Q4H PRN PRN Reason: Anxiety Stop: 04/09/19 17:51 Hydroxyzine HCl (Vistaril) 50 mg PO HSZ PRN PRN Reason: Insomnia Stop: 04/09/19 17:51 Last Admin: 03/12/19 22:56 Dose: 50 mg Documented by: Magnesium Hydroxide (Milk Of Magnesia) 30 ml PO DAILY PRN PRN Reason: Constipation Stop: 04/09/19 17:51 Sodium Chloride ([place] Nasal) 1 - 2 sprays NA PRN PRN PRN Reason: Nasal Dryness/Congestion Stop: 04/09/19 17:51 Mental Health & Subst Abuse Tx Therapist Name of Therapist: [facility] first appointment today Political Science Chair Name of Political Science Chair: None Post Discharge Appointments Primary Care Physician Name Of Family Doctor: Florentino Barajas MD, [facility] (1) Depression Depression Type: unspecified Qualified Code(s): F32.9 - Major depressive disorder, single episode, unspecified
[2019-03-14] MEDS: FLUOXETINE HCL 20 MG CAP PO SCH (12:13)
--- NOTE | 2019-03-14 16:34 | Psychiatric Progress Note ---
Date of Service March 14, 2019 Impression / Recommendations Impression 18-year-old [employer] student from the [place] area who has no psychiatric history and presents with worsening depression and suicidal thoughts for the past month, with multiple plans and access to the means, and significant relationship stressors. He reports limited communication with parents, but good support from friends. He is struggling academically and doing poorly in school, as he has not been functioning due to the severity of his depression. Initially declined antidepressant tx. He does report abusing cannabis, and thinks it is making him feel worse. He is willing for inpatient treatment, which is medically necessary due to the severity of his symptoms and risk for suicide if discharged. (1) Suicidal ideation: Every 15 minute checks for safety. Encourage group attendance and participation. Work on healthy coping skills and discharge safety plan. Encourage family meeting with his primary supports. He indicates he does not share details of his personal life with parents, and they are not aware he has been struggling emotionally 03/12 - Suicidality is persistent, episodic during the day and heavy at night - Pt states he does not feel his is better able to push back against the thoughts - Unable to contract for safety outside of the hospital setting 03/13 -Today, the patient reports that he has had no thoughts of suicide during the course of the day. -He acknowledges that his previous thoughts of suicide were not particularly well formed. Although today he says that he did not have imminent intent to act on his suicidal thoughts, and although he does not believe that he had the means to act on the thoughts expressed, he sought treatment because he is becoming progressively more alarmed by the intrusive and persistent nature of his suicidal thoughts. 03/14 - denies active SI today (2) Depression: 03/11 -discussed diagnoses and treatment recommendations, including the option of antidepressant medication, which he is declining. Discussed the role of antidepressants, what they can help with and what they do not, the role of psychotherapy, good self-care, and behavioral techniques to improve mood. Also discussed recommendations to abstain from other psychoactive substances, and patient reports he has been abusing THC and thinks it is making him feel worse. Continue to provide psychoeducation and support about treatment options, as well as motivational interviewing. -Coordinate care with [facility], and refer him for outpatient therapy. -Coordinate with the University regarding his academic standing. 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 Pt admits to being naive to coping strategies, and is interested in utilizing therapy and behavioral techniques to manage his mood initially - Reviewed again that medications are an option, and can be considered if his mood does not improve - Still requires solidified aftercare plan 03/13 -The patient agreed to a trial of Prozac 10 mg twice a day. Material risks and anticipated benefits of Prozac and other selective serotonin reuptake inhibitors were reviewed with the patient. He asked a number of questions and indicated understanding. He was advised that side effects may occur before benefit is achieved, and that these side effects may tend to improve or resolve, so that if possible he should continue the treatment, as tolerated. 03/14 -increase prozac to 20mg daily -explored triggers including peer conflict and academic stress (3) Asthma: Continue albuterol inhaler as needed. Patient reports hospitalization 2 months ago for pneumomediastinum. He says he was prescribed an inhaler, but has stopped using it, and was supposed to follow up with a product picker, but did not. Refer him to [facility] for outpatient follow-up. Inventory Assets Strengths: Patient reports that he has a supportive family and supportive friends. He also is intelligent and is motivated to academic success in college. Needs: Resolution of suicidal thoughts. Improved individual coping strategies. Euthymic mood. Risk Factors Assessment Male: Yes Do You Have Access To A Gun?: No Health Problems: Yes Mental Health Diagnoses: Yes Substance Use Disorders: Yes Previous Attempt: No Previous Psychiatric Hospitalization: No Hopelessness: Yes Smoker: No Protective Factors Assessment Moravian Beliefs: No : No Responsible for Young Children: No Employed: No Stable Relationships: Yes Supportive Family: Yes (While the patient tells us that his parents are supportive, he also tells us that they knowingly [employer] son to a conservative [employer] that, among other things, apparently suggested conversion therapy.) Good Rapport with Provider: No Absence of Any Risk Factors Above: No Interval History Identifying Information ASIF GARCIA is a 18-year-old [employer] student from the [place] area who was referred to the hospital by [facility] after he presented there with suicidal ideation and multiple plans. He was admitted on 03/10/19 17:53 on a 201 vo luntary commitment. Chief Complaint "It's juts a lot". Review of Systems Notes denies nausea Sleep Information Total Hours of Sleep: 6.5 Sleep Comments: pt q-15 minute checks Meal Information Percent Meal Consumed - Breakfast: 100 Percent Meal Consumed - Lunch: 100 Percent Meal Consumed - Dinner: 100 Nutrition Comment: pt. asleep Subjective Subjective Patient was seen & assessed and interval progress reviewed with treatment team. Pt started on low dose prozac as trial yesterday which was tolerated w/o SE or benefit. Scheduled for family meeting today associated with significant anticipatory anxiety. He acknowledges recent suicidal ideation but again states not likely to attempt. Physical Exam Psychiatric Orientation: alert and cooperative Apperance: + disheveled Eye Contact: good eye contact Motor Behavior: steady gait and station Speech: normal rate/rhythm/volume of speech Affect: + depressed affect and + anxious affect Mood: + depressed mood and + anxious mood Thought Process: clear/coherent thought process Thought Content: no delusions Suicidal Thoughts: denies suicidal thoughts, denies suicidal plan and denies suicidal intent Homicidal Thoughts: denies homicidal thoughts Hallucinations: no auditory hallucinations Cognition: recent memory grossly intact Vital Signs (Past 24 Hours) Last Vital Signs Temp 36.4 C L 03/14/19 06:59 Pulse 69 03/14/19 07:00 Resp 18 03/14/19 06:59 BP 114/67 03/14/19 07:00 Pulse Ox 97 03/10/19 19:23 Results & Data Current Inpatient Medications Current Inpatient Medications: Current Inpatient Medications Acetaminophen (Tylenol) 650 mg PO Q4H PRN PRN Reason: Headache or Minor Fever Stop: 04/09/19 17:51 Al Hydrox/Mg Hydrox/Simethicone (Maalox) 30 ml PO Q4H PRN PRN Reason: GI Upset Stop: 04/09/19 17:51 Albuterol (Proair Hfa) 2 puffs INH QID PRN PRN Reason: Shortness Of Breath Bismuth Subsalicylate (Kaopectate) 15 ml PO PRN PRN PRN Reason: Loose Stool Stop: 04/09/19 17:51 Fluoxetine HCl (Prozac) 20 mg PO QAM RAMEZ Stop: 04/13/19 11:14 Last Admin: 03/14/19 12:13 Dose: 20 mg Documented by: Hydroxyzine HCl (Vistaril) 25 mg PO Q4H PRN PRN Reason: Anxiety Stop: 04/09/19 17:51 Last Admin: 03/14/19 12:13 Dose: 25 mg Documented by: Hydroxyzine HCl (Vistaril) 50 mg PO HSZ PRN PRN Reason: Insomnia Stop: 04/09/19 17:51 Last Admin: 03/12/19 22:56 Dose: 50 mg Documented by: Magnesium Hydroxide (Milk Of Magnesia) 30 ml PO DAILY PRN PRN Reason: Constipation Stop: 04/09/19 17:51 Sodium Chloride (Benzie Nasal) 1 - 2 sprays NA PRN PRN PRN Reason: Nasal Dryness/Congestion Stop: 04/09/19 17:51 Mental Health & Subst Abuse Tx Therapist Name of Therapist: [facility] first appointment today Rental Sales Representative Name of Rental Sales Representative: None Post Discharge Appointments Primary Care Physician Name Of Family Doctor: Florentino Barajas MD, [facility] (1) Depression Depression Type: unspecified Qualified Code(s): F32.9 - Major depressive disorder, single episode, unspecified
[2019-03-15] MEDS: FLUOXETINE HCL 20 MG CAP PO SCH (09:48)
--- NOTE | 2019-03-15 16:25 | Psychiatric Progress Note ---
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 He reports limited communication with parents, but good support from friends. He is struggling academically and doing poorly in school, as he has not been functioning due to the severity of his depression. Initially declined antidepressant tx. He does report abusing cannabis, and thinks it is making him feel worse. He is willing for inpatient treatment, which is medically necessary due to the severity of his symptoms and risk for suicide if discharged. (1) Suicidal ideation: Every 15 minute checks for safety. Encourage group attendance and participation. Work on healthy coping skills and discharge safety plan. Encourage family meeting with his primary supports. He indicates he does not share details of his personal life with parents, and they are not aware he has been struggling emotionally 03/12 - Suicidality is persistent, episodic during the day and heavy at night - Pt states he does not feel his is better able to push back against the thoughts - Unable to contract for safety outside of the hospital setting 03/13 -Today, the patient reports that he has had no thoughts of suicide during the course of the day. -He acknowledges that his previous thoughts of suicide were not particularly well formed. Although today he says that he did not have imminent intent to act on his suicidal thoughts, and although he does not believe that he had the means to act on the thoughts expressed, he sought treatment because he is becoming progressively more alarmed by the intrusive and persistent nature of his suicidal thoughts. 03/14 - denies active SI today 03/15/2019 -Continues to deny suicidal ideation. Describing improved hopefulness and willing to engage in outpatient aftercare including family therapy. (2) Depression: 03/11 -discussed diagnoses and treatment recommendations, including the option of antidepressant medication, which he is declining. Discussed the role of antidepressants, what they can help with and what they do not, the role of psychotherapy, good self-care, and behavioral techniques to improve mood. Also discussed recommendations to abstain from other psychoactive substances, and patient reports he has been abusing THC and thinks it is making him feel worse. Continue to provide psychoeducation and support about treatment options, as well as motivational interviewing. -Coordinate care with [facility], and refer him for outpatient therapy. -Coordinate with the [employer] regarding his academic standing. 03/12 - Continues to verbalize desire to refrain from medications to manager nuclear mood. Pt admits to being naive to coping strategies, and is interested in utilizing therapy and behavioral techniques to manage his mood initially - Reviewed again that medications are an option, and can be considered if his mood does not improve - Still requires solidified aftercare plan 03/13 -The patient agreed to a trial of Prozac 10 mg twice a day. Material risks and anticipated benefits of Prozac and other selective serotonin reuptake inhibitors were reviewed with the patient. He asked a number of questions and indicated understanding. He was advised that side effects may occur before benefit is achieved, and that these side effects may tend to improve or resolve, so that if possible he should continue the treatment, as tolerated. 03/14 -increase prozac to 20mg daily -explored triggers including peer conflict and academic stress 03/15 -Continue Prozac 20 mg daily -Discussed target discharge day of Saturday once aftercare is arranged if he continues to do well. He is certainly responding positively to therapeutic milieu -Education provided regarding utility of antidepressant pharmacotherapy and reviewed risks and benefits and he was reassured about absence of risk for addiction on this type of medication (3) Asthma: Continue albuterol inhaler as needed. Patient reports hospitalization 2 months ago for pneumomediastinum. He says he was prescribed an inhaler, but has stopped using it, and was supposed to follow up with a real estate account executive, but did not. Refer him to [facility] for outpatient follow-up. Inventory Assets Strengths: Patient reports that he has a supportive family and supportive friends. He also is intelligent and is motivated to academic success in college. Needs: Resolution of suicidal thoughts. Improved individual coping strategies. Euthymic mood. Risk Factors Assessment Male: Yes Do You Have Access To A Gun?: No Health Problems: Yes Mental Health Diagnoses: Yes Substance Use Disorders: Yes Previous Attempt: No Previous Psychiatric Hospitalization: No Hopelessness: Yes Smoker: No Protective Factors Assessment Mandaeism Beliefs: No : No Responsible for Young Children: No Employed: No Stable Relationships: Yes Supportive Family: Yes (While the patient tells us that his parents are supportive, he also tells us that they knowingly [employer] son to a conservative [employer] high school that, among other things, apparently suggested conversion therapy.) Good Rapport with Provider: No Absence of Any Risk Factors Above: No Interval History Identifying Information ASIF GARCIA is a 18-year-old [employer] student from the [place] area who was referred to the hospital by [facility] after he presented there with suicidal ideation and multiple plans. He was admitted on 03/10/19 17:53 on a 201 voluntary commitment. Chief Complaint "I feel better about the day today". Review of Systems Notes Denies GI complaints. Denies dizziness. Sleep Information Total Hours of Sleep: 5.5 Sleep Comments: pt q-15 minute checks Meal Information Percent Meal Consumed - Breakfast: 0 Percent Meal Consumed - Lunch: 0 Percent Meal Consumed - Dinner: 100 Nutrition Comment: pt. asleep Subjective Subjective Patient was seen & assessed and interval progress reviewed with treatment team. Patient experienced anxiety prior to family meeting yesterday which ultimately went well. Parents supportive. It sounds that his mother in particular has grown in her world view to allow her to accept her son for whom he is however there remains some conflict regarding her feelings about his atheism. She appears to accept his sexual orientation. In the meeting it became apparent how undeserving of his parents love that the patient felt. They were all agreeable to participating in family therapy as an outpatient. On interview today the patient expressed opinion that his family meeting went very well and was reassuring to him however he acknowledges that he has long perceived that his parents were judging him and that he was not the child that they wanted and, while reassured, he cannot fully except their positive regard. He slept well last evening. Seems to be tolerating prozac with perhaps a very mild degree of sedation so far. He expresses feeling much more positive today and denies residual suicidal impulses today. Reviewed his hesitation to take an antidepressant which appears to have been predicated on a fear of addiction or dependency. Physical Exam Psychiatric Orientation: alert, oriented x 3 and cooperative Apperance: appropriately dressed and appeared stated age Eye Contact: good eye contact Motor Behavior: steady gait and station Speech: normal rate/rhythm/volume of speech Affect: euthymic affect (But still serious and a little reserved) More hopeful Thought Process: goal directed thought process and linear/logical thought process Thought Content: + guilt and + self deprecation Suicidal Thoughts: denies suicidal thoughts, denies suicidal plan and denies suicidal intent Homicidal Thoughts: denies homicidal thoughts Hallucinations: no auditory hallucinations and no visual hallucinations Cognition: recent memory grossly intact and attention grossly intact Estimated Intelligence: average estimated intelligence Insight: + fair insight Judgement: + fair judgement Vital Signs (Past 24 Hours) Last Vital Signs Temp 36.3 C L 03/15/19 06:52 Pulse 73 03/15/19 06:53 Resp 18 03/15/19 06:52 BP 120/80 03/15/19 06:53 Pulse Ox 97 03/10/19 19:23 Results & Data Current Inpatient Medications Current Inpatient Medications: Current Inpatient Medications Acetaminophen (Tylenol) 650 mg PO Q4H PRN PRN Reason: Headache or Minor Fever Stop: 04/09/19 17:51 Al Hydrox/Mg Hydrox/Simethicone (Maalox) 30 ml PO Q4H PRN PRN Reason: GI Upset Stop: 04/09/19 17:51 Albuterol (Proair Hfa) 2 puffs INH QID PRN PRN Reason: Shortness Of Breath Bismuth Subsalicylate (Kaopectate) 15 ml PO PRN PRN PRN Reason: Loose Stool Stop: 04/09/19 17:51 Fluoxetine HCl (Prozac) 20 mg PO QAM RAMEZ Stop: 04/13/19 11:14 Last Admin: 03/15/19 09:48 Dose: 20 mg Documented by: Hydroxyzine HCl (Vistaril) 25 mg PO Q4H PRN PRN Reason: Anxiety Stop: 04/09/19 17:51 Last Admin: 03/14/19 12:13 Dose: 25 mg Documented by: Hydroxyzine HCl (Vistaril) 50 mg PO HSZ PRN PRN Reason: Insomnia Stop: 04/09/19 17:51 Last Admin: 03/14/19 23:56 Dose: 50 mg Documented by: Magnesium Hydroxide (Milk Of Magnesia) 30 ml PO DAILY PRN PRN Reason: Constipation Stop: 04/09/19 17:51 Sodium Chloride (Kings Nasal) 1 - 2 sprays NA PRN PRN PRN Reason: Nasal Dryness/Congestion Stop: 04/09/19 17:51 Mental Health & Subst Abuse Tx Psychiatrist Name of Psychiatrist: EDIN Psychiatrist's Psychiatric Appointment Comment: [facility] Therapist Name of Therapist: EDIN Therapist's Therapy Appointment Comment: [facility] Process Improvement Analyst Name of Process Improvement Analyst: [facility] Phone Number for Process Improvement Analyst: [phone] Case Management Appointment Comment: Kate Funes [place] Post Discharge Appointments Primary Care Physician Name Of Family Doctor: JUJU PHILLIP Primary Care Time of Appointment with PCP: Please follow up as needed Provider Appointment Comment: [facility] Contact Information Discharge Discharge Address: [address] [place] [address], [place] [id number] (1) Depression Depression Type: unspecified Qualified Code(s): F32.9 - Major depressive disorder, single episode, unspecified
[2019-03-16 06:54] VITALS: TEMP 97.5
[2019-03-16] MEDS: FLUOXETINE HCL 20 MG CAP PO SCH (08:49)
--- NOTE | 2019-03-16 11:58 | Psychiatric Progress Note ---
Date of Service March 16, 2019 Impression / Recommendations Impression 18-year-old [employer] [facility] student from the [place] area who has no psychiatric history and presents with worsening depression and suicidal thoughts for the past month, with multiple plans and access to the means, and significant relationship stressors. He reports limited communication with parents, but good support from friends. Pt did participate in a family meeting with his parents, and discussed previous barriers to communication. He is struggling academically and doing poorly in school, as he has not been functioning due to the severity of his depression. Initially declined antidepressant treatment, but after several days was willing for initiation of fluoxetine to target anxiety, low mood, and limited motivation. He does report abusing cannabis, and thinks it is making him feel worse. He is willing for inpatient treatment, which is medically necessary due to the severity of his symptoms and risk for suicide if discharged. (1) Suicidal ideation: Every 15 minute checks for safety. Encourage group attendance and participation. Work on healthy coping skills and discharge safety plan. Encourage family meeting with his primary supports. He indicates he does not share details of his personal life with parents, and they are not aware he has been struggling emotionally 03/12 - Suicidality is persistent, episodic during the day and heavy at night - Pt states he does not feel his is better able to push back against the thoughts - Unable to contract for safety outside of the hospital setting 03/13 -Today, the patient reports that he has had no thoughts of suicide during the course of the day. -He acknowledges that his previous thoughts of suicide were not particularly well formed. Although today he says that he did not have imminent intent to act on his suicidal thoughts, and although he does not believe that he had the means to act on the thoughts expressed, he sought treatment because he is becoming progressively more alarmed by the intrusive and persistent nature of his suicidal thoughts. 03/14 - denies active SI today 03/15/2019 -Continues to deny suicidal ideation. Describing improved hopefulness and willing to engage in outpatient aftercare including family therapy. 03/16 - Continues to deny SI (2) Depression: 03/11 -discussed diagnoses and treatment recommendations, including the option of antidepressant medication, which he is declining. Discussed the role of antidepressants, what they can help with and what they do not, the role of psychotherapy, good self-care, and behavioral techniques to improve mood. Also discussed recommendations to abstain from other psychoactive substances, and patient reports he has been abusing THC and thinks it is making him feel worse. Continue to provide psychoeducation and support about treatment options, as well as motivational interviewing. -Coordinate care with [facility], and refer him for outpatient therapy. -Coordinate with the [employer] regarding his academic standing. 03/12 - Continues to verbalize desire to refrain from medications to manager bakery mood. Pt admits to being naive to coping strategies, and is interested in utilizing therapy and behavioral techniques to manage his mood initially - Reviewed again that medications are an option, and can be considered if his mood does not improve - Still requires solidified aftercare plan 03/13 -The patient agreed to a trial of Prozac 10 mg twice a day. Material risks and anticipated benefits of Prozac and other selective serotonin reuptake inhibitors were reviewed with the patient. He asked a number of questions and indicated understanding. He was advised that side effects may occur before benefit is achieved, and that these side effects may tend to improve or resolve, so that if possible he should continue the treatment, as tolerated. 03/14 -increase prozac to 20mg daily -explored triggers including peer conflict and academic stress 03/15 -Continue Prozac 20 mg daily -Discussed target discharge day of Saturday once aftercare is arranged if he continues to do well. He is certainly responding positively to therapeutic milieu -Education provided regarding utility of antidepressant pharmacotherapy and reviewed risks and benefits and he was reassured about absence of risk for addiction on this type of medication 03/16 - Continue Prozac 20mg daily, pt offered further titration and declines at this time - Pt agreeable to follow-up with outpatient psychiatric prescriber for future adjustments - Exploring possibility of continuing outpatient treatment at [facility] - Consider discharge tomorrow if mood remains stable (3) Asthma: Continue albuterol inhaler as needed. Patient reports hospitalization 2 months ago for pneumomediastinum. He says he was prescribed an inhaler, but has stopped using it, and was supposed to follow up with a air commodore, but did not. Refer him to [facility] for outpatient follow-up. Inventory Assets Strengths: Patient reports that he has a supportive family and supportive friends. He also is intelligent and is motivated to academic success in college. Needs: Resolution of suicidal thoughts. Improved individual coping strategies. Euthymic mood. Risk Factors Assessment Male: Yes Do You Have Access To A Gun?: No Health Problems: Yes Mental Health Diagnoses: Yes Substance Use Disorders: Yes Previous Attempt: No Previous Psychiatric Hospitalization: No Hopelessness: Yes Smoker: No Protective Factors Assessment Adventism Beliefs: No : No Responsible for Young Children: No Employed: No Stable Relationships: Yes Supportive Family: Yes (While the patient tells us that his parents are supportive, he also tells us that they knowingly Center [employer] son to a conservative [employer] that, among other things, apparently suggested conversion therapy.) Good Rapport with Provider: No Absence of Any Risk Factors Above: No Interval History Identifying Information ASIF GARCIA is a 18-year-old [employer] [facility] student from the [facility] who was referred to the hospital by [facility] after he presented there with suicidal ideation and multiple plans. He was admitted on 03/10/19 17:53 on a 201 voluntary commitment. Chief Complaint "[My weekend] was eventful." Review of Systems Notes Constitutional: denied Cardiovascular: denied Respiratory: denied Gastrointestinal: denied Neurological: denied Psychiatric: denies symptoms other than stated above Total of at least 10 systems reviewed, pertinent positives as above and in HPI. Sleep Information Total Hours of Sleep: 6 Sleep Comments: pt on q-15 minute checks Meal Information Percent Meal Consumed - Breakfast: 100 Percent Meal Consumed - Lunch: 0 Percent Meal Consumed - Dinner: 75 Nutrition Comment: pt. asleep Subjective Subjective Patient was seen & assessed and interval progress reviewed with treatment team. Staff report the patient has continued to demonstrate improvements, rating his mood an 8/10 and "satisfied" last evening. His continues to be somewhat reserved, but has opened up somewhat with staff. Pt was willing for a meeting with his parents over the weekend. They discussed previous barriers to honest communication, and patient was reportedly pleased with the outcome. Pt was seen today to assess progress since admission. Pt states that his weekend was "eventful", citing the meeting with his parents. He states that it "went really well." He suggested the family continue to participate in family counseling, which they are planning to schedule for his winter break. He denies ongoing SI, but admits his anxiety is continuing - specifically related to returning to school. We discussed his appointment with [facility] and allowing them to assist with that process. Pt states he feels comfortable continuing fluoxetine at its current dosage. Pt feels comfortable with the p ossibility of discharge tomorrow, if mood remains stable. He denies other needs or concerns today. Physical Exam Psychiatric Orientation: alert, oriented x 3 and cooperative (and pleasant, remains timid but appearing a bit more comfortable) Apperance: appropriately dressed (causally, in hoodie and pajama bottoms), appropriately groomed and appeared stated age Eye Contact: good eye contact Motor Behavior: steady gait and station and no abnormal motor movements Speech: normal rate/rhythm/volume of speech (timid, but spontaneous) Affect: + anxious affect (mildly) and + blunted affect Mood: + anxious mood "I was still having panic attacks over the weekend, and now I'm anxious about returning to school." Thought Process: goal directed thought process, linear/logical thought process, clear/coherent thought process and thought association intact Thought Content: reality based without delusions; no hopelessness and no loneliness Suicidal Thoughts: denies suicidal thoughts and denies suicidal intent Homicidal Thoughts: denies homicidal thoughts Hallucinations: no auditory hallucinations and no visual hallucinations Cognition: recent memory grossly intact, attention grossly intact and language grossly intact Insight: good insight Judgement: good judgement Vital Signs (Past 24 Hours) Last Vital Signs Temp 36.4 C L 03/16/19 06:52 Pulse 60 03/16/19 06:53 Resp 18 03/16/19 06:52 BP 116/79 03/16/19 06:53 Pulse Ox 97 03/10/19 19:23 Results & Data Current Inpatient Medications Current Inpatient Medications: Current Inpatient Medications Acetaminophen (Tylenol) 650 mg PO Q4H PRN PRN Reason: Headache or Minor Fever Stop: 04/09/19 17:51 Al Hydrox/Mg Hydrox/Simethicone (Maalox) 30 ml PO Q4H PRN PRN Reason: GI Upset Stop: 04/09/19 17:51 Albuterol (Proair Hfa) 2 puffs INH QID PRN PRN Reason: Shortness Of Breath Bismuth Subsalicylate (Kaopectate) 15 ml PO PRN PRN PRN Reason: Loose Stool Stop: 04/09/19 17:51 Fluoxetine HCl (Prozac) 20 mg PO QAM RAMEZ Stop: 04/13/19 11:14 Last Admin: 03/16/19 08:49 Dose: 20 mg Documented by: Hydroxyzine HCl (Vistaril) 25 mg PO Q4H PRN PRN Reason: Anxiety Stop: 04/09/19 17:51 Last Admin: 03/14/19 12:13 Dose: 25 mg Documented by: Hydroxyzine HCl (Vistaril) 50 mg PO HSZ PRN PRN Reason: Insomnia Stop: 04/09/19 17:51 Last Admin: 03/14/19 23:56 Dose: 50 mg Documented by: Magnesium Hydroxide (Milk Of Magnesia) 30 ml PO DAILY PRN PRN Reason: Constipation Stop: 04/09/19 17:51 Sodium Chloride ([place] Nasal) 1 - 2 sprays NA PRN PRN PRN Reason: Nasal Dryness/Congestion Stop: 04/09/19 17:51 Mental Health & Subst Abuse Tx Psychiatrist Name of Psychiatrist: EDIN Psychiatrist's Psychiatric Appointment Comment: [facility] Therapist Name of Therapist: EDIN Therapist's Therapy Appointment Comment: [facility] Front Counter Attendant Name of Front Counter Attendant: [facility] Phone Number for Front Counter Attendant: [phone] Date of Appointment with Front Counter Attendant: 03/18/19 Time of Appointment with Front Counter Attendant: 1:00 p.m. Case Management Appointment Comment: [address] [facility] Post Discharge Appointments Primary Care Physician Name Of Family Doctor: JUJU PHILLIP Primary Care Time of Appointment with PCP: Please follow up as needed Provider Appointment Comment: [facility] Other #1: Name of Aftercare Appointment: Potential family therapy option: [facility] Phone Number of Aftercare Appointment: Aftercare Appointment Comment: [address], [place] [address] #2: Name of Aftercare Appointment: Potential family therapy option: [facility] Phone Number of Aftercare Appointment: [phone] Aftercare Appointment Comment: [address], [address], [place] [address] #3: Name of Aftercare Appointment: Potential family therapy option: [facility] Phone Number of Aftercare Appointment: Aftercare Appointment Comment: [address], [place] [address], [place] [address] Contact Information Discharge Discharge [address]: [address] [place] [address] [place] [id number] (1) Depression Depression Type: unspecified Qualified Code(s): F32.9 - Major depressive dis order, single episode, unspecified
[2019-03-17] MEDS: FLUOXETINE HCL 20 MG CAP PO SCH (09:07)
--- NOTE | 2019-03-17 09:35 | Discharge Summary ---
Date of Service March 17, 2019 History of Present Illness The patient presented to the ER yesterday, 03/10/2019, reporting worsening depression over the past month. He endorsed suicidal thoughts to cut himself, overdose on pills, or shoot himself, stating "whichever is fastest." He reported high anxiety, with palpitations, shakiness, poor focus, and rapid breathing. He endorsed poor sleep overnight (3-4 hours a night), with inability to fall asleep and then sleeping through the day and missing class. He reported poor supports locally, and poor academic performance. He reported stress due to questioning his gender identity, and struggled to elaborate on this. He reported regular marijuana use and drug screen was positive for THC; labs were otherwise normal. He agreed to sign in voluntarily. On my assessment today, he reports his mood has been worsening "for a long time, I just didn't notice it until about a month ago." In the past month, he has been sleeping excessively, smoking more pot, not enjoying things as much, isolating and not socializing, not going to class or keeping up with assignments. Appetite is decreased, but eats fast food after smoking pot, and weight has been stable. He started having suicidal thoughts in the past 2-4 months, which have become "more persistent, more graphic, specific." He reports thinking "there's really nothing stopping me from ending my life, I could do it physically...but I guess my friends would be really upset if I did it, and maybe my family too." He went to [facility] yesterday as "I just didn't want to feel like that any more." He states he had considered therapy at age 14 when he told his parents he was cowart, but they would only pay for a faith therapist, so he declined. States his relationship with parents has been distant ever since, and he doesn't talk to them about personal things anymore. Reports anxiety that started around age 10-11 when he "realized I was cowart," and is now exacerbated by relationships and school. Reports "a little bit" of relationship stress, stating his only relationship (earlier this year) was "bad," and as a result he "alienated all of my friends." After some discussion he states the relationship is "probably the whole reason" he is depressed. States he met his ex-boyfriend, B, last year when he was a freshman, and "got me into drag, we started doing that together." Another male, R, then transferred in and started hanging out with his friend B, and they were "not dating, but together." R then started coming over to the patient's room and they were intimate, but B found out and was very hurt and upset with the patient. The patient and R continued to spend time together and ultimately B found out and "really freaked out on me, said some things." He was willing to forgive Glen if he "cut R out, and I tried to but I couldn't." The patient and R then had a relationship for a while, although he says "I really didn't want to be, but he was the only person I had," as all his other friends withdrew because of the way he'd treated B. R ultimately broke up with him "because his brother was a drug addict, and he didn't want to drag me through it." He had been planning to hang out with R all summer as they are both from the [place] area, "but then I spent the summer alone." He still has sporadic contact with R, and is again friends with B. States he feels upset whenever he thinks about it, because "I let it all happen, didn't even like him," also states he "thinks he just liked me because of the way I look." Reports episode of pneumomediastinum in Dec. just prior to returning to school, was hospitalized for a few days, and was supposed to follow up with a medical territory manager, but has not done so. He was also supposed to use an inhaler (not Albuterol, can't recall name) bid, but hasn't been doing that either. He does not want to consider medications, stating he is worried he would be "dependent" on them, noting a tendency to "abuse anything that makes me feel better." Reports increasing his marijuana use, and thinks it is making him feel worse in the long run. Physical Exam Psychiatric Orientation: alert, oriented x 3 and cooperative (reseved, but pleasant) Apperance: appropriately dressed (casually in hoodie and pajama pants), appropriately groomed and appeared stated age Eye Contact: good eye contact Motor Behavior: steady gait and station and no abnormal motor movements Speech: normal rate/rhythm/volume of speech (soft tone, timid, but spontaneous) Affect: + anxious affect (mildly, remains somewhat timid) Mood: + anxious mood ("I do get anxious when I think about going back to school") Thought Process: goal directed thought process, linear/logical thought process and clear/coherent thought process Thought Content: reality based without delusions; no hopelessness and no worthlessness Suicidal Thoughts: denies suicidal thoughts, denies suicidal plan and denies suicidal intent Homicidal Thoughts: denies homicidal thoughts Hallucinations: no auditory hallucinations and no visual hallucinations Cognition: remote memory grossly intact, attention grossly intact and language grossly intact Insight: good insight Judgement: good judgement Vital Signs (Past 24 Hours) Last Vital Signs Temp 36.4 C L 03/17/19 06:57 Pulse 82 03/17/19 06:58 Resp 18 03/17/19 06:57 BP 122/79 03/17/19 06:58 Pulse Ox 97 03/10/19 19:23 Principal Diagnosis - Major depressive disorder, single episode, unspecified Psychiatric Data 18-year-old male admitted voluntarily for inpatient psychiatric treatment on 03/10/2019 after presenting to the ED with complaints of worsening depression over the past month. Patient had endorsed suicidal ideation, with consideration to cut himself, overdose on pills, or shoot himself. Patient admitted significant concerns about anxiety and depression, and presented to [facility] for an initial intake appointment. Patient states that after he disclosed information about his mood and anxiety, he was recommended for evaluation in the emergency department. Patient admitted to significant academic stressors, a difficult breakup, changes in relationships with friends, and questions related to sexuality and gender identity. Patient was ultimately agreeable with inpatient psychiatric treatment, but refused initiation of medications to target mood and anxiety. After several days of therapeutic intervention in attendance in group programming, patient verbalized desire to begin antidepressant medications. He was initiated on fluoxetine with titration to 20 mg during his stay. Risks, benefits, and potential side effects were reviewed, and patient was agreeable with medication initiation. Patient also benefited from occasional use of hydroxyzine for acute anxiety during his stay, and is requesting a prescription on discharge. Patient engaged in group and recreational programming, was gordillo pportive of peers, and identified multiple coping strategies he was able to develop during his hospitalization. With some encouragement, patient was agreeable to involving his parents and a family meeting. She was initially anxious about this, as he states communication had not been a great with his parents after informing them that he was cowart. Patient was ultimately very pleased with how the meeting went, and feels that they are again supportive of his needs. A meeting was scheduled with [facility] for after discharge, to review academic standing and provide assistance with makeup work. Patient was referred to [facility] after discharge from both therapy and medication management. These appointments have been scheduled to allow for timely follow- up after discharge. Patient is agreeable with continuing his current medication, working with psychiatric prescriber to make necessary adjustments, and engaging appropriately in outpatient psychiatric treatment. At time of dis charge, patient is reporting improvement in mood, resolution of suicidal ideation, improve communication with parents, and development of multiple coping strategies that he feels will be beneficial in the future. Patient is able to verbalize a change in perspective with regard to previous thoughts of suicidal ideation. Patient did complete a safety plan prior to discharge, which was personally reviewed by this provider. Based on review of patient's case and their current presentation, risk of harm to self or others is no longer perceived to be acute. Management of symptoms on an outpatient basis seems the most appropriate and least restrictive setting. Pt seems appropriate for discharge with recommendation for consistent follow-up with outpatient psychiatric prescriber and therapist. Pt verbalized understanding of discharge plan reviewed and is agreeable with plan to be discharged home today. Day of Discharge Assessment Patient's case was reviewed and discussed during treatment team. It is reported that the patient is requesting discharge today. He admits to some anxiety related to school, being uncertain about his academic status. He is aware of meeting scheduled with [facility] after discharge to discuss this further. Patient has been participating in group programming and has been interactive with peers. Patient was seen today to assess readiness for discharge. Patient states that overall his condition is improving; however, he does admit to a mild panic attack last evening. Patient states this anxiety was related to the stress of returning to school. Patient states "the panic attack was pretty mild, I was waiting able to work through it on my own and then just fell asleep." Patient admits that he had thoughts of "wanting to escape the work" but denies suicidal ideation or consideration to end his life. We reviewed ways that patient plans to manage his thoughts after discharge, in r egard to the possibility that thoughts to escape may continue. Patient states that he feels much more comfortable managing these thoughts after learning some coping strategies and techniques during this admission. Patient states "before, I would just push back everything I had to do and not work on it. Everything would just build up and get even more stressful. Now on those thoughts could been, and no it will work itself out. That those situations are just temporary things." The patient shares with this provider "I think future me will be very happy that current me didn't end my life, that's what I keep telling myself. I'll look back on this and be happy I got help." Pt states anxiety at this time is primarily related to returning to school. He was reminded of his appointment with [employer] [facility] and is appreciate of this. Pt denies any safety concerns related to the idea of discharge today. He is future oriented in conversation and reports motivation to return to classes and catch up on work. Pt admits that opening up honest communication with his parents has been highly beneficial for him as well. Pt was agreeable to reviewing his safety plan as part of discharge planning. Written copy was reviewed by this provider prior to discharge. Plan for discharge back to school today was discussed. Pt verbalize d understanding and is agreeable with all aspects of discharge planning. He denies other needs or concerns prior to discharge. ROS: Constitutional: denied Cardiovascular: denied Respiratory: denied Gastrointestinal: denied Neurological: denied Psychiatric: denies symptoms other than stated above Total of at least 10 systems reviewed, pertinent positives as above and in HPI. Transition of Care Transition Of Care Record: was reviewed with the patient Advance Directives Advance Directives Information Provided: Yes Advance Directives: No Mental Health Advance Directive: No Advance Directives on File: No Living Will: No Power of Capacity Planning Analyst: No Advance Directives Reason:: Declines as Mental Health Visit. Risk Factors Assessment Presenting risk factors reviewed on discharge. Precipitating stressors mitigated by: admission for inpatient psychiatric observation and treatment, initiation of medications to target presenting symptoms, attendance of therapeutic treatment groups, development of healthy and effective coping strategies, involvement of outpatient supports, completion of a safety plan, discussion regarding substance abuse and effects on mental health diagnoses, and education on diagnoses. Pt has demonstrated improvement in condition with regard to improvement in mood, resolution of suicidal ideation, development of healthy coping strategies, therapeutic interventions regarding stress management, opportunity for open communication with parents, and involvement of the university for future academic planning. At this time, patient is requesting discharge and is no longer considered to be at acute risk of harm to himself or others. Pt will be discharged with recommendation for ongoing outpatient psychiatric treatment. Male: Yes Do You Have Access To A Gun?: No Health Problems: Yes Mental Health Diagnoses: Yes Substance Use Disorders: Yes Previous Attempt: No Previous Psychiatric Hospitalization: No Hopelessness: Yes Smoker: No Protective Factors Assessment Congregation Beliefs: No : No Responsible for Young Children: No Employed: No Stable Relationships: Yes Supportive Family: Yes (While the patient tells us that his parents are supportive, he also tells us that they knowingly Center cowart son to a [employer] that, among other things, apparently suggested conversion therapy.) Good Rapport with Provider: No Absence of Any Risk Factors Above: No Tobacco Cessation at Discharge Tobacco Cessation Medication Prescribed at Discharge: Not Applicable/Non-Smoker Total Time Total Time Spent: Greater Than 30 Minutes Total Time Includes: Examination of the patient, Discharge Planning, Medication Reconciliation and Communication with other providers Discharge Data Lab Results 03/10/19 03/10/19 03/10/19 14:05 14:05 14:05 WBC RBC Hgb Hct MCV MCH MCHC RDW Std Deviation RDW Coeff of Jeffery Plt Count MPV Immature Gran % (Auto) Neut % (Auto) Lymph % (Auto) Shannon % (Auto) Eos % (Auto) Baso % (Auto) Immature Gran # (Auto) Neut # (Auto) Lymph # (Auto) Shannon # (Auto) Eos # (Auto) Baso # (Auto) Sodium Potassium Chloride Carbon Dioxide Anion Gap BUN Creatinine Est Cr Clr Drug Dosing Est GFR ( Amer) Est GFR (Non-Af Amer) BUN/Creatinine Ratio Glucose Calcium Total Bilirubin AST ALT Alkaline Phosphatase Total Protein Albumin Globulin Albumin/Globulin Ratio TSH Urine Color Yellow Urine Appearance Clear Urine pH 6.5 Ur Specific Lincoln 1.017 Urine Protein Negative Urine Glucose (UA) Negative Urine Ketones Negative Urine Blood Negative Urine Nitrite Negative Urine Bilirubin Negative Urine Urobilinogen Negative Ur Leukocyte Esterase Negative Salicylates Urine Opiates Screen Neg Ur Methadone, Qual Neg Acetaminophen Urine Barbiturates Neg Ur Phencyclidine (PCP) Neg U Amphetamin/Meth Scrn Neg MDMA (Ecstasy) Screen Neg U Benzodiazepines Scrn Neg Ur Cocaine Metabolite Neg U Marijuana (THC) Screen Pos H U Marijuana THC Carboxy 97 A Ethyl Alcohol mg/dL 03/10/19 03/10/19 03/10/19 14:56 14:56 14:56 WBC 5.19 RBC 4.66 L Hgb 15.0 Hct 43.1 MCV 92.5 MCH 32.2 MCHC 34.8 RDW Std Deviation 43.2 RDW Coeff of Jeffery 12.8 Plt Count 217 MPV 10.2 Immature Gran % (Auto) 0.2 Neut % (Auto) 62.1 Lymph % (Auto) 23.3 Shannon % (Auto) 8.3 Eos % (Auto) 4.8 Baso % (Auto) 1.3 Immature Gran # (Auto) 0.01 Neut # (Auto) 3.22 Lymph # (Auto) 1.21 Shannon # (Auto) 0.43 Eos # (Auto) 0.25 Baso # (Auto) 0.07 Sodium 138 Potassium 3.8 Chloride 105 Carbon Dioxide 28 Anion Gap 5.0 BUN 9 Creatinine 0.93 Est Cr Clr Drug Dosing 104.4 Est GFR ( Amer) 137.4 Est GFR (Non-Af Amer) 118.6 BUN/Creatinine Ratio 9.2 L Glucose 88 Calcium 8.9 Total Bilirubin 1.0 AST 12 L ALT 20 Alkaline Phosphatase 93 Total Protein 7.5 Albumin 4.4 Globulin 3.1 Albumin/Globulin Ratio 1.4 TSH 1.110 Urine Color Urine Appearance Urine pH Ur Specific Lincoln Urine Protein Urine Glucose (UA) Urine Ketones Urine Blood Urine Nitrite Urine Bilirubin Urine Urobilinogen Ur Leukocyte Esterase Salicylates < 1.7 L Urine Opiates Screen Ur Methadone, Qual Acetaminophen < 2 L Urine Barbiturates Ur Phencyclidine (PCP) U Amphetamin/Meth Scrn MDMA (Ecstasy) Screen U Benzodiazepines Scrn Ur Cocaine Metabolite U Marijuana (THC) Screen U Marijuana THC Carboxy Ethyl Alcohol mg/dL 03/10/19 14:56 WBC RBC Hgb Hct MCV MCH MCHC RDW Std Deviation RDW Coeff of Jeffery Plt Count MPV Immature Gran % (Auto) Neut % (Auto) Lymph % (Auto) Shannon % (Auto) Eos % (Auto) Baso % (Auto) Immature Gran # (Auto) Neut # (Auto) Lymph # (Auto) Shannon # (Auto) Eos # (Auto) Baso # (Auto) Sodium Potassium Chloride Carbon Dioxide Anion Gap BUN Creatinine Est Cr Clr Drug Dosing Est GFR ( Amer) Est GFR (Non-Af Amer) BUN/Creatinine Ratio Glucose Calcium Total Bilirubin AST ALT Alkaline Phosphatase Total Protein Albumin Globulin Albumin/Globulin Ratio TSH Urine Color Urine Appearance Urine pH Ur Specific Lincoln Urine Protein Urine Glucose (UA) Urine Ketones Urine Blood Urine Nitrite Urine Bilirubin Urine Urobilinogen Ur Leukocyte Esterase Salicylates Urine Opiates Screen Ur Methadone, Qual Acetaminophen Urine Barbiturates Ur Phencyclidine (PCP) U Amphetamin/Meth Scrn MDMA (Ecstasy) Screen U Benzodiazepines Scrn Ur Cocaine Metabolite U Marijuana (THC) Screen U Marijuana THC Carboxy Ethyl Alcohol mg/dL < 3.0 Hospital Course (1) Suicidal ideation: Every 15 minute checks for safety. Encourage group attendance and participation. Work on healthy coping skills and discharge safety plan. Encourage family meeting with his primary supports. He indicates he does not share details of his personal life with parents, and they are not aware he has been struggling emotionally 03/12 - Suicidality is persistent, episodic during the day and heavy at night - Pt states he does not feel his is better able to push back against the thoughts - Unable to contract for safety outside of the hospital setting 03/13 -Today, the patient reports that he has had no thoughts of suicide during the course of the day. -He acknowledges that his previous thoughts of suicide were not particularly well formed. Although today he says that he did not have imminent intent to act on his suicidal thoughts, and although he does not believe that he had the means to act on the thoughts expressed, he sought treatment because he is becoming progressively more alarmed by the intrusive and persistent nature of his suicidal thoughts. 03/14 - denies active SI today 03/15/2019 -Continues to deny suicidal ideation. Describing improved hopefulness and willing to engage in outpatient aftercare including family therapy. 03/16 - Continues to deny SI (2) Depression: 03/11 -discussed diagnoses and treatment recommendations, including the option of antidepressant medication, which he is declining. Discussed the role of antidepressants, what they can help with and what they do not, the role of psychotherapy, good self-care, and behavioral techniques to improve mood. Also discussed recommendations to abstain from other psychoactive substances, and patient reports he has been abusing THC and thinks it is making him feel worse. Continue to provide psychoeducation and support about treatment options, as well as motivational interviewing. -Coordinate care with [facility], and refer him for outpatient therapy. -Coordinate with the [place] regarding his academic standing. 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 Pt admits to being naive to coping strategies, and is interested in utilizing therapy and behavioral techniques to manage his mood initially - Reviewed again that medications are an option, and can be considered if his mood does not improve - Still requires solidified aftercare plan 03/13 -The patient agreed to a trial of Prozac 10 mg twice a day. Material risks and anticipated benefits of Prozac and other selective serotonin reuptake inhibitors were reviewed with the patient. He asked a number of questions and indicated understanding. He was advised that side effects may occur before benefit is achieved, and that these side effects may tend to improve or resolve, so that if possible he should continue the treatment, as tolerated. 03/14 -increase prozac to 20mg daily -explored triggers including peer conflict and academic stress 03/15 -Continue Prozac 20 mg daily -Discussed target discharge day of Saturday once aftercare is arranged if he continues to do well. He is certainly responding positively to therapeutic milieu -Education provided regarding utility of antidepressant pharmacotherapy and reviewed risks and benefits and he was reassured about absence of risk for lyn ction on this type of medication 03/16 - Continue Prozac 20mg daily, pt offered further titration and declines at this time - Pt agreeable to follow-up with outpatient psychiatric prescriber for future adjustments - Exploring possibility of continuing outpatient treatment at [facility] - Consider discharge tomorrow if mood remains stable (3) Asthma: Continue albuterol inhaler as needed. Patient reports hospitalization 2 months ago for pneumomediastinum. He says he was prescribed an inhaler, but has stopped using it, and was supposed to follow up with a medical territory manager, but did not. Refer him to [facility] for outpatient follow-up. Mental Health & Subst Abuse Tx Psychiatrist Name of Psychiatrist: [facility] Psychiatrist's Time of Appointment with Psychiatrist: Will schedule you after initial therapy appt Psychiatric Appointment Comment: [facility] Psychiatrist Release of Information: Obtained, Reviewed and Signed Therapist Name of Therapist: EDIN Vandana Imelda Therapist's Date of Therapist Appointment: 03/18/19 Time of Therapist Appointment: 1:00 p.m. (arrive 10-15 min early) Therapy Appointment Comment: [facility], 3rd Floor Therapist Release of Information: Obtained, Reviewed and Signed Organizational Consultant Name of Organizational Consultant: [facility] - [facility] Phone Number for Organizational Consultant: [phone] Date of Appointment with Organizational Consultant: 03/18/19 Time of Appointment with Organizational Consultant: 3:00 p.m. Case Management Appointment Comment: [address] [place] [address] Post Discharge Appointments Primary Care Physician Name Of Family Doctor: JUJU PHILLIP Primary Care Time of Appointment with PCP: Please follow up as needed Provider Appointment Comment: [facility] Smoking Cessation Counseling Tobacco Cessation Medication Prescribed at Discharge: Not Applicable/Non-Smoker Other #1: Name of Aftercare Appointment: Potential family therapy option: [facility] Phone Number of Aftercare Appointment: Aftercare Appointment Comment: [address], [place] [address] #2: Name of Aftercare Appointment: Potential family therapy option: [facility] Phone Number of Aftercare Appointment: [phone] Aftercare Appointment Comment: [address], [address], [place] [address] #3: Name of Aftercare Appointment: Potential family therapy option: [facility] Phone Number of Aftercare Appointment: Aftercare Appointment Comment: [address], [address] [address] Contact Information Discharge Discharge [address]: [address] [place] [id number] Discharge Plan Discharge Items Patient Disposition: Home - Self-Care Reason For Visit: DEPRESSION NOS Discharge Diagnosis: Depression, Panic attacks Condition on Discharge: Good Activity: Resume your previous activity Non-emergency contact: Primary Care Provider, Psychiatrist and Therapist Call non-emergency contact if: you have any medication questions and your symptoms worsen Follow-up/Referrals: PCP,NO [Primary Care Provider] - Diet: Regular Addtl Attending Provider Instructions: SPECIAL CARE INSTRUCTIONS: 1. Follow through with your scheduled aftercare appointments. If unable to keep an appointment, please call to reschedule. 2. Take your medication only as prescribed. Medication should not be changed or stopped without the approval of your doctor. In the event of worsening symptoms or concerns about side effects, contact your doctor immediately. 3. Utilize new healthy coping skills, anger management skills, and stress management skills learned during your hospitalization. Journal feelings and process them with a support person. Identify stressors or situations that may result in relapse, deterioration or inappropriate behaviors and develop a plan to deal with those issues. 4. If your coping skills are ineffective and you are in crisis, contact your outpatient providers for direction. If unable to reach your providers, please call the CAN HELP LINE AT or go to the closest Emergency Room. 5. Avoid alcohol and un-prescribed drugs. 6. You have been provided with the Mental Health Advance Directives Pamphlet for your review. AFTERCARE APPOINTMENTS: * Please call your insurance company prior to your scheduled appointment to confirm your aftercare providers are covered. Take your insurance information to your appointments. WHO TO CALL AND WHEN: Medical Emergencies: For questions or emergencies related to your hospital stay, please contact the [facility] at [phone]. A speech clinician is on-call 10/12 for the Behavioral Health Unit for emergencies At any time you feel your situation is an emergency, you may also call 911 immediately. Your Doctors Instructions noted above were prepared by provider Milli Raza PA-C. Pending Studies at Discharge: No Stand-Alone Forms: My [facility], Smoking Cessation, Suicide Prevention Resources Medications and DC Order Prescriptions: New hydroxyzine HCl 25 mg Tablet 25 mg PO Q4H PRN (Reason: anxiety) 30 Days Qty: 30 RF: 0 fluoxetine 20 mg Capsule 20 mg PO QAM 30 Days Qty: 30 RF: 0 Continued albuterol sulfate 90 mcg/actuation Aerosol Powdr Breath Activated 2 inh INHALATION QID PRN (Reason: Shortness Of Breath) RF: 0 Discharge Orders: Discharge Order (Routine); Ordered 03/17/19 Ordered By: Milli Raza Admission Data Admit Date/Time: 03/10/19 17:53 Attending Provider: Betsy Spencer Admit Provider: Betsy Spencer Primary Care Provider: PCP,NO Other Interventions: Discharge Summary Assessment (RN) Last Done: 03/17/19 10:15 PSY Interdisciplinary Discharge Planning Last Done: 03/17/19 10:19 Coding Level of Care Code 26482 D/C day mgmt > 30 min Diagnoses Suicidal ideation R45.851 Depression F32.9 Depression Type: unspecified Asthma J45.909
[2019-03-17 10:18] VITALS: BP 116/74; PULSE 76
== END 2019-03-17 12:11 | disposition home or self-care (01) | DRG 881 ==
LOC: ED 14:12 → 3S 17:53

== ENCOUNTER 2019-04-27 10:15 | Inpatient (IN) ==
[2019-04-27] MEDS ORDERED: SODIUM CHLORIDE 0.9% 1000ML 1,000 ML IV SCH (11:00)
[2019-04-27 11:17] LABS: Basophils # (auto) 0.04 K/uL (0-0.2); Basophils % (auto) 0.6 %; Eosinophils # (auto) 0.39 K/uL (0-0.5); Eosinophils % (auto) 5.9 %; Hematocrit (blood only) 44.7 % (42-52); Hemoglobin 15.4 g/dL (14.0-18.0); Immature Granulocytes # (auto) 0.01 K/uL (0.00-0.02); Immature Granulocytes % (auto) 0.2 %; Lymphocytes # (auto) 0.84 K/uL (1.2-3.4); Lymphocytes % (auto) 12.7 %; Mean Corpuscular Hemoglobin 31.8 pg (25-34); Mean Corpuscular Hgb Conc 34.5 g/dL (32-36); Mean Corpuscular Volume 92.4 fL (80-100); Mean Platelet Volume 9.9 fL (7.4-10.4); Monocytes % (auto) 6.1 %; Neutrophils # (auto) 4.93 K/uL (1.4-6.5); Neutrophils % (auto) 74.5 %; Platelet Count 227 K/uL (130-400); RDW Coefficient of Variation 12.9 % (11.5-14.5); RDW Standard Deviation 43.5 fL (36.4-46.3); Red Blood Count 4.84 M/uL (4.7-6.1); White Blood Count 6.61 K/uL (4.8-10.8)
[2019-04-27 11:35] LABS: Albumin Level 4.4 gm/dl (3.4-5.0); BUN Creatinine Ratio 10.5 (10-20); Calcium 8.9 mg/dl (8.5-10.1); Creatinine Clr Calc Pharmacy 81.9 ml/min; Est GFR (African American) 104.5; Est GFR (Non-African American) 90.2; Magnesium 2.2 mg/dl (1.8-2.4)
[2019-04-27 11:38] LABS: Albumin Globulin Ratio 1.4 (0.9-2); Bilirubin,Total 0.9 mg/dl (0.2-1); Globulin 3.1 gm/dl (2.5-4.0); Total Protein 7.5 gm/dl (6.4-8.2)
[2019-04-27 11:45] LABS: Acetaminophen < 2 ug/ml (10-30)
[2019-04-27 11:46] LABS: Salicylate < 1.7 mg/dl (2.8-20)
[2019-04-27 12:53] LABS: Amphetamines+Metham, Urine Neg (Neg); Barbiturates, Urine Neg (Neg); Benzodiazepine, Urine Neg (Neg); Cocaine, Urine Neg (Neg); MDMA (Ecstacy), Urine Neg (Neg); Methadone, Urine Neg (Neg); Opiate, Urine Neg (Neg); Phencyclidine, Urine Neg (Neg)
[2019-04-27 13:11] LABS: Appearance Urine Clear (Clear); Bilirubin Urine Negative (Negative); Blood Urine Negative (Negative); Color Urine Yellow; Glucose Urine UA Negative (Negative); Ketones Urine Negative (Negative); Leukocyte Esterase Urine Negative (Negative); Nitrite Urine Negative (Negative); Protein Urine Negative (Negative); Specific Gravity Urine 1.016 (1.000-1.030); Urobilinogen Urine Negative (Negative); pH Urine 6.5 (4.5-7.5)
--- NOTE | 2019-04-27 15:46 | Emergency Department Note ---
Entered by Kristin Cespedes acting as a scribe for eVro Mittal MD History of Present Illness General Chief complaint: Overdose (Intentional) Source: patient History of Present Illness Onset (ago): hour(s) (12) Location: head Pain Consistency: + other (episode) Maximum Pain Intensity: 0 Quality: + other (Benadryl overdose - 24 tablets) Associated symptoms: + nausea/vomiting (-vomiting) and + other (+dry mouth; +auditory and visual hallucinations; +suicidal ideation) The patient is a 19 year old male, with past medical history of asthma, who presents to the Emergency Room with complaints of an episode of a Benadryl over dose, in which the patient took 24 tablets of Benadryl in between 2116-1486 last night. The patient denies taking any other medications. He states he currently feels nauseous. The patient reports he felt fine yesterday after taking the tablets, but he notes he fell asleep very quickly. The patient does admit to experiencing a dry mouth and visual and auditory hallucinations. The patient states he has never done anything like this in the past. The patient states he woke up this morning, regretted what he had done, and after calling his mother, decided to come to the hospital. The patient does not admit to doing it to kill himself, but he states he knew that dying was a possibility once he took the tablets. The patient states he had a bad weekend, as he states generally did not feel good. The patient notes he sees a psychiatrist every Saturday through . He also reports that he is on Prozac and Vistaril. The patient reports he has felt suicidal for awhile, and he states his plan for suicide has been to overdose. The patient states he smoke JUUL and marijuana. He also notes he drinks alcohol, and he states he drank a lot three nights ago. He denies drinking over the past two days. The patient denies cutting himself. Home Medications Home Medications Medication Instructions Recorded Confirmed Type albuterol sulfate [ProAir HFA] 1 puff INHALATION Q6H PRN 04/27/19 04/27/19 History fluoxetine [Prozac] 40 mg PO DAILY 04/27/19 04/27/19 History hydroxyzine pamoate [Vistaril] 25 mg PO QID PRN 04/27/19 04/27/19 History Allergies Allergy/AdvReac Type Severity Reaction Status Date / Time amoxicillin Allergy Hives Unverified 03/10/19 14:58 cashew nut Allergy Anaphylaxis Unverified 03/10/19 14:58 Past Med/Surg History Medical History Asthma Depression (Acute) Family History Other No significant family history Social History Preferred Language: Jamaican Communication Ability: Effective Receiving Checker Required: No Beliefs That Will Affect Care: None Feels Safe at Home: Yes Smoking Status: Current every day smoker (States this is new since his last admission) Tobacco Type: e-cigarettes ; Review of Systems See HPI for pertinent positives & negatives. and A total of 10 systems reviewed and were otherwise negative Physical Exam Vital Signs Vital Signs - 24 hr 04/27/19 10:23 04/27/19 14:08 Temperature 36.4 C L Temperature Source Oral Pulse Rate 61 Pulse Rate [Finger] 59 L Pulse Rhythm [Finger] Regular Respiratory Rate 16 16 Respiratory Effort / Characteristics Non-Labored Respiratory Depth Normal Respiratory Pattern Regular Blood Pressure 131/84 Blood Pressure [Right Arm] 162/91 H Blood Pressure Mean 99 Blood Pressure Mean [Right Arm] 114 Blood Pressure Position [Right Arm] Sitting Pulse Oximetry 100 97 Oxygen Delivery Method Room Air Room Air Sepsis Recent Fever Within 48 Hours No Sepsis New/Unexplained Change in Mental Status No Sepsis Action Taken by Nursing No Action Required Vital signs reviewed. General: Generally well-appearing, in no significant distress. HEENT: No scleral icterus, PERRLA, neck supple. Atraumatic. Cardiovascular: Regular rate and rhythm, no extra sounds. Pulmonary: Clear to auscultation bilaterally, normal work of breathing. Abdomen: Soft, nontender, nondistended, positive bowel sounds. Musculoskeletal: Atraumatic, no peripheral edema. Neurologic: Patient awake alert and oriented x 3. Psych: Positive SI. Negative HI. Skin: Warm, dry, no rash Course Course 1052: Past medical records reviewed. The patient was evaluated in room A6. A complete history and physical exam was performed. 1521: The patient will be reevaluated at [address] [place] [address]. Administered Medications Fluoxetine HCl (Prozac) 40 mg PO QAM RAMEZ Stop: 05/28/19 08:59 Last Admin: 04/29/19 08:42 Dose: 40 mg Documented by: [id number] Admin: 04/28/19 09:52 Dose: 40 mg Documented by: [id number] Ondansetron HCl (Zofran Odt) 4 mg PO Q6H PRN PRN Reason: Nausea Stop: 05/28/19 10:34 Last Admin: 04/28/19 11:20 Dose: 4 mg Documented by: [id number] Discontinued Medications Sodium Chloride (Nss 1000ml) 1,000 mls @ 999 mls/hr IV .Q1H1M RAMEZ Stop: 04/27/19 12:00 Last Infusion: 04/27/19 12:28 Dose: 0 mls/hr Documented by: [id number] Admin: 04/27/19 11:27 Dose: 999 mls/hr Documented by: [id number] Medical Decision Making Differential Diagnosis Differential diagnosis: Etiologies such as mood disorder, infection, hypoglycemia, electrolyte abnormalities, cardiac sources, intracerebral event, toxicologic, neurologic, as well as others were entertained. Medical Records Attestation: I reviewed the patient's medical records. Home Medications Current Medication List: was personally reviewed by me Laboratory Data Attestation: I reviewed the patient's lab results. Result diagrams: 04/27/19 11:01 04/27/19 11:01 Lab Results 04/27/19 04/27/19 04/27/19 Range/Units 11:01 11:01 11:01 WBC 6.61 (4.8-10.8) K/uL RBC 4.84 (4.7-6.1) M/uL Hgb 15.4 (14.0-18.0) g/dL Hct 44.7 (42-52) % MCV 92.4 (80-100) fL MCH 31.8 (25-34) pg MCHC 34.5 (32-36) g/dL RDW Std Deviation 43.5 (36.4-46.3) fL RDW Coeff of Jeffery 12.9 (11.5-14.5) % Plt Count 227 (130-400) K/uL MPV 9.9 (7.4-10.4) fL Immature Gran % (Auto) 0.2 % Neut % (Auto) 74.5 % Lymph % (Auto) 12.7 % Kemper % (Auto) 6.1 % Eos % (Auto) 5.9 % Baso % (Auto) 0.6 % Immature Gran # (Auto) 0.01 (0.00-0.02) K/uL Neut # (Auto) 4.93 (1.4-6.5) K/uL Lymph # (Auto) 0.84 L (1.2-3.4) K/uL Kemper # (Auto) 0.40 (0.11-0.59) K/uL Eos # (Auto) 0.39 (0-0.5) K/uL Baso # (Auto) 0.04 (0-0.2) K/uL Sodium 138 (136-145) mmol/L Potassium 4.0 (3.5-5.1) mmol/L Chloride 105 (98-107) mmol/L Carbon Dioxide 27 (21-32) mmol/L Anion Gap 6.0 (3-11) BUN 12 (7-18) mg/dl Creatinine 1.16 (0.6-1.4) mg/dl Est Cr Clr Drug Dosing 81.9 ml/min Est GFR ( Amer) 104.5 Est GFR (Non-Af Amer) 90.2 BUN/Creatinine Ratio 10.5 (10-20) Glucose 84 (70-99) mg/dl Calcium 8.9 (8.5-10.1) mg/dl Magnesium 2.2 (1.8-2.4) mg/dl Total Bilirubin 0.9 (0.2-1) mg/dl AST 14 L (15-37) U/L ALT 25 (12-78) U/L Alkaline Phosphatase 92 (45-117) U/L Total Protein 7.5 (6.4-8.2) gm/dl Albumin 4.4 (3.4-5.0) gm/dl Globulin 3.1 (2.5-4.0) gm/dl Albumin/Globulin Ratio 1.4 (0.9-2) TSH (0.300-4.500) uIu/ml Salicylates < 1.7 L (2.8-20) mg/dl Urine Opiates Screen (Neg) Ur Methadone, Qual (Neg) Acetaminophen < 2 L (10-30) ug/ml Urine Barbiturates (Neg) Ur Phencyclidine (PCP) (Neg) U Amphetamin/Meth Scrn (Neg) MDMA (Ecstasy) Screen (Neg) U Benzodiazepines Scrn (Neg) Ur Cocaine Metabolite (Neg) U Marijuana (THC) Screen (Neg) U Marijuana THC Carboxy (<5) ng/mL Drug Screen Comment Ethyl Alcohol mg/dL (0-3) mg/dl 04/27/19 04/27/19 04/27/19 Range/Units 11:01 11:01 12:07 WBC (4.8-10.8) K/uL RBC (4.7-6.1) M/uL Hgb (14.0-18.0) g/dL Hct (42-52) % MCV (80-100) fL MCH (25-34) pg MCHC (32-36) g/dL RDW Std Deviation (36.4-46.3) fL RDW Coeff of Jeffery (11.5-14.5) % Plt Count (130-400) K/uL MPV (7.4-10.4) fL Immature Gran % (Auto) % Neut % (Auto) % Lymph % (Auto) % Kemper % (Auto) % Eos % (Auto) % Baso % (Auto) % Immature Gran # (Auto) (0.00-0.02) K/uL Neut # (Auto) (1.4-6.5) K/uL Lymph # (Auto) (1.2-3.4) K/uL Kemper # (Auto) (0.11-0.59) K/uL Eos # (Auto) (0-0.5) K/uL Baso # (Auto) (0-0.2) K/uL Sodium (136-145) mmol/L Potassium (3.5-5.1) mmol/L Chloride (98-107) mmol/L Carbon Dioxide (21-32) mmol/L Anion Gap (3-11) BUN (7-18) mg/dl Creatinine (0.6-1.4) mg/dl Est Cr Clr Drug Dosing ml/min Est GFR ( Amer) Est GFR (Non-Af Amer) BUN/Creatinine Ratio (10-20) Glucose (70-99) mg/dl Calcium (8.5-10.1) mg/dl Magnesium (1.8-2.4) mg/dl Total Bilirubin (0.2-1) mg/dl AST (15-37) U/L ALT (12-78) U/L Alkaline Phosphatase (45-117) U/L Total Protein (6.4-8.2) gm/dl Albumin (3.4-5.0) gm/dl Globulin (2.5-4.0) gm/dl Albumin/Globulin Ratio (0.9-2) TSH 1.610 (0.300-4.500) uIu/ml Salicylates (2.8-20) mg/dl Urine Opiates Screen Neg (Neg) Ur Methadone, Qual Neg (Neg) Acetaminophen (10-30) ug/ml Urine Barbiturates Neg (Neg) Ur Phencyclidine (PCP) Neg (Neg) U Amphetamin/Meth Scrn Neg (Neg) MDMA (Ecstasy) Screen Neg (Neg) U Benzodiazepines Scrn Neg (Neg) Ur Cocaine Metabolite Neg (Neg) U Marijuana (THC) Screen Pos H (Neg) U Marijuana THC Carboxy (<5) ng/mL Drug Screen Comment Ethyl Alcohol mg/dL < 3.0 (0-3) mg/dl 04/27/19 Range/Units 12:07 WBC (4.8-10.8) K/uL RBC (4.7-6.1) M/uL Hgb (14.0-18.0) g/dL Hct (42-52) % MCV (80-100) fL MCH (25-34) pg MCHC (32-36) g/dL RDW Std Deviation (36.4-46.3) fL RDW Coeff of Jeffery (11.5-14.5) % Plt Count (130-400) K/uL MPV (7.4-10.4) fL Immature Gran % (Auto) % Neut % (Auto) % Lymph % (Auto) % Kemper % (Auto) % Eos % (Auto) % Baso % (Auto) % Immature Gran # (Auto) (0.00-0.02) K/uL Neut # (Auto) (1.4-6.5) K/uL Lymph # (Auto) (1.2-3.4) K/uL Kemper # (Auto) (0.11-0.59) K/uL Eos # (Auto) (0-0.5) K/uL Baso # (Auto) (0-0.2) K/uL Sodium (136-145) mmol/L Potassium (3.5-5.1) mmol/L Chloride (98-107) mmol/L Carbon Dioxide (21-32) mmol/L Anion Gap (3-11) BUN (7-18) mg/dl Creatinine (0.6-1.4) mg/dl Est Cr Clr Drug Dosing ml/min Est GFR ( Amer) Est GFR (Non-Af Amer) BUN/Creatinine Ratio (10-20) Glucose (70-99) mg/dl Calcium (8.5-10.1) mg/dl Magnesium (1.8-2.4) mg/dl Total Bilirubin (0.2-1) mg/dl AST (15-37) U/L ALT (12-78) U/L Alkaline Phosphatase (45-117) U/L Total Protein (6.4-8.2) gm/dl Albumin (3.4-5.0) gm/dl Globulin (2.5-4.0) gm/dl Albumin/Globulin Ratio (0.9-2) TSH (0.300-4.500) uIu/ml Salicylates (2.8-20) mg/dl Urine Opiates Screen (Neg) Ur Methadone, Qual (Neg) Acetaminophen (10-30) ug/ml Urine Barbiturates (Neg) Ur Phencyclidine (PCP) (Neg) U Amphetamin/Meth Scrn (Neg) MDMA (Ecstasy) Screen (Neg) U Benzodiazepines Scrn (Neg) Ur Cocaine Metabolite (Neg) U Marijuana (THC) Screen (Neg) U Marijuana THC Carboxy 171 H (<5) ng/mL Drug Screen Comment SEE NOTE Ethyl Alcohol mg/dL (0-3) mg/dl ECG Data Attestation: I personally reviewed and interpreted this ECG as follows: Indication: + toxicologic Rate (beats per minute): 63 Rhythm: + normal sinus ECG Intervals/blocks: + Normal QT-c ECG Findings: + Other (T wave abnormality in anterior lead ); no PACs and no PVCs Blood Pressure Blood Pressure Findings: Elevated blood pressure Blood Pressure Disposition: Referred to patients primary care provider MDM Narrative This pt was evaluated and appeared to be in no distress. Pt was medically cleared and evaluated by the director of casework. Pt allegedly took the benadryl yesterday and is asymptomatic at this time. Pt is felt to meet criteria for admission. Pt was accepted by [facility] for further management. Pt is aware of the plan and agree. Impression & Plan Suicidal ideation, Drug overdose Discharge Plan Visit Data *Final* Discharge Date/Time: 04/27/19 17:24 Chief Complaint: Overdose (Intentional) ED Provider: Vero Mittal Discharge Problem: Suicidal ideation, Drug overdose Patient Disposition: Admitted As Inpatient Discharge Instructions Interventions: ED Discharge Assessment Last Done: 04/27/19 17:24 Discharge Problem: Drug overdose Qualifiers: Encounter type: initial encounter Injury intent: intentional self-harm Qualified Code(s): T50.902A - Poisoning by unspecified drugs, medicaments and biological substances, intentional self-harm, initial encounter The scribe's documentation has been prepared under my direction and personally reviewed by me in its entirety. I confirm that the note above accurately reflects all work, treatment, procedures, and medical decision making performed by me.
[2019-04-27] MEDS ORDERED: MAGNESIUM HYDROXIDE SUSP 30 ML UDC PO PRN (17:33)
[2019-04-27] MEDS ORDERED: ACETAMINOPHEN 325 MG TAB PO PRN (17:33)
[2019-04-27] MEDS ORDERED: SODIUM CHLORIDE 0.65% NA SOLN 45 ML (OCEAN) PRN (17:33)
[2019-04-27] MEDS ORDERED: hydrOXYzine HCl 10 MG TAB PO PRN (17:33)
[2019-04-27] MEDS ORDERED: ALUMINUM/MAGNESIUM SUSP 30 ML UDC PO PRN (17:33)
[2019-04-27] MEDS ORDERED: BISMUTH SUBSALICYLATE PER ML OMNICELL CHARGE PO PRN (17:33)
[2019-04-27] MEDS ORDERED: ALBUTEROL HFA 8 GM INHALER INH PRN (17:39)
--- NOTE | 2019-04-28 09:50 | History & Physical ---
Date of Service April 28, 2019 Impression / Recommendations Impression 19-year-old male admitted voluntarily for inpatient psychiatric treatment on 04/27/2019, after presenting to the ED status post diphenhydramine overdose. Patient reportedly took #24 - 25mg tablets of diphenhydramine in an attempt to end his life. When patient awoke after his attempt, he reported feeling "disgusted" with himself, and called his mother who then called 911. Patient was admitted to our unit from 03/10/19 03/17/19 for depression and suicidal thoughts, but no active furtherance at that time. Patient's discharge, he admits he has not been attending classes and has had difficulty functioning due to the severity of his depression. Patient was initiated on fluoxetine during his inpatient admission in February, which was titrated by his outpatient psychiatrist to a dose of 40 mg within the past week. Patient states that her outpatient plan was to remain at this dose and observe for effects. Patient states he feels comfortable continuing this plan, allowing the focus of this inpatient admission to be on therapeutic interventions and coordinating aftercare and academics. Patient does indicate he is interested in pursuing a medical withdrawal. He was encouraged to involve parents in a family meeting, especially as his current plan is to return home after discharge. Patient will be encouraged to participate in group and recreational programming. At this time, patient continues to report suicidal ideation. He remains at high risk of suicide if he is discharged prematurely without adequate medication of risk factors. Dr. Kentrell Elizondo was directly involved in review and discussion of the patient's case and participated in medical decision making regarding treatment recommendations. (1) Suicidal ideation: 04/28 - Admitted to a locked inpatient behavioral health unit, on q15 minute safety checks - Encourage medication initiation/adjustments as indicated - Encourage participation in group and recreational therapies - Gather collateral information from outpatient providers - Suggest family meeting to involve outpatient supports in safety planning - Arrange appropriate aftercare (2) Depression: 04/28 - Fluoxetine reportedly titrated to 40mg within the last week, patient reports outpatient plan was to continue medication at this dosage, which seems appropriate - Will request records from [facility] in order to gather collateral information - Pt considering medical withdrawal from school - if returning home with parents, he will require outpatient services be arranged prior to discharge - Encourage participation in group and recreational programming - Encourage involvement in a family meeting to discuss aftercare and safety planning Depression Type: unspecified Qualified Code(s): F32.9 - Major depressive disorder, single episode, unspecified (3) Drug overdose: 04/28 - Will hold hydroxyzine at this time, given overdose of diphenhydramine prior to admission - Will continue to assess physical symptoms to determine when restart would be appropriate - Pt states he has been given 1-week supplies of his fluoxetine by his outpatient psychiatrist, may be beneficial to continue to limit access to surplus of medication Encounter type: initial encounter Injury intent: intentional self-harm Qualified Code(s): T50.902A - Poisoning by unspecified drugs, medicaments and biological substances, intentional self-harm, initial encounter (4) Asthma: 04/28 - Continue prn use of inhaler Asthma complication type: unspecified Asthma persistence: unspecified Asthma severity: unspecified severity Qualified Code(s): J45.909 - Unspecified asthma, uncomplicated Risk Factors Assessment Male: Yes Do You Have Access To A Gun?: No Health Problems: No Mental Health Diagnoses: Yes Substance Use Disorders: Yes Previous Attempt: No Family History of Suicide: No Previous Psychiatric Hospitalization: Yes (03/10/19 -03/17/19) Hopelessness: Yes Smoker: Yes Protective Factors Assessment Pentecostal Beliefs: No : No Responsible for Young Children: No Employed: No Stable Relationships: No Supportive Family: No (patient does not identify family as a strong support) Psychiatric History Identifying Data ASIF GARCIA is a 19-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 Pt has a history of depression, having been hospitalized on our unit from 03/10/19 - 03/17/19 for worsening depression and SI with multiple plans. Pt was admitted on 04/27/19 17:00 on a 201 voluntary commitment for presenting to the ED having intentionally ingested #24 - 25mg diphenhydramine tablets around 2300 on 04/26/19 in a reported suicide attempt. Chief Complaint " The week I got released, I went to class the next day. But I just could not go back. I felt embarrassed and overwhelmed." History of Present Illness Asif Garcia is a 19-year-old male admitted voluntarily for inpatient psychiatric treatment on 04/27/2019. Patient reportedly presented to the ED after intentional diphenhydramine overdose. Patient states he intentionally consumed #24 - 25mg tablets of diphenhydramine the evening of 04/26/19, having spent time looking up consequences of various doses of the medication prior to the ingestion. Patient reportedly slept after the overdose, and when he awoke called his mother for help. It is stated the patient's mother called police, and patient was brought to the ED on a 302 warrant. Patient ultimately signed in voluntarily, desiring inpatient psychiatric admission. He is known to our unit from a prior psychiatric admission from 03/10/2019 through 03/17/2019. At that time he was reporting worsening depression and suicidal ideation with multiple plans, though denied active furtherance at that time. Patient is cooperative with psychiatric evaluation. He informs this provider that he attended 1 day of classes after his discharge from the hospital and "could not go back." Patient states that he found the classes overwhelming, and was embarrassed by the questions he was getting regarding his absence. Patient states that he stopped attending classes, but would continue to spend time with his friends and participating in clubs. Patient states he spent most of his time in his dorm room, but would "leave at least once a day, usually in the evenings." Patient states that since his discharge, his mood has been "all over the place, I have really good days and really bad days." He does admit that the majority of his days have been "really bad." Patient states that his mornings and evenings are generally more difficult, as "those of the times and most likely to be alone." Patient states that the suicidal ideation remained rather prevalent, and states "I have thoughts about doing that before, but I would always use weed and alcohol and feel better. I just ran out of weed and alcohol." Patient states that when he was unable to numb his emotions with these as other substances, he directed his energy toward utilizing medications. Patient states "I was looking it up a lot, trying to figure out what dose to take." Patient states that his research informed him that 1000 mg of diphenhydramine would cause him to , but "500 mg would probably just make you feel weird. So I decided on 600 mg." Patient is somewhat ambivalent about the intention of his overdose, not clearly stating it was an attempt to end his life but also not denying this. The likely reason the patient gave for that dose was "it was half of the package." Patient states he initially took only 300 mg at first," then decided to take more." The patient states he awoke the next morning, and felt "disgusting, to face what I did." Patient continues to report academic stressors, and stated during his last admission that there were a number of friendships/relationship stressors as well. Patient states his plan at this time is to withdrawal from the semester, and take some time off. He is interested in returning home with his parents, and pursuing outpatient psychiatric treatment in that area. Since patient's admission, his dose of fluoxetine has been titrated to 40 mg daily. He is continue to follow-up with outpatient therapy through [facility]. Patient does admit to changes in his eating pattern, stating "I want to lose weight." He states that he engages and overeating of junk foods, but makes up for this behavior by "eating nothing the next day." Patient admits to continued suicidal ideation at this time, stating it has been "consistent" for the past several days. Pt denies HI, SIB, A/V hallucinations, paranoia, cesar/hypomania, other symptoms more suggestive of a bipolar presentation, OCD, PTSD, and other specific psychiatric symptoms. Past Psychiatric History Previous Psych History: Current Psychiatric Diagnosis: Major depressive disorder Outpatient Services: Medication management and therapy through [facility] Previous Psych Admissions: [facility] - 03/10/19 - 03/17/19: worsening depression and SI Do You Have Access To A Gun?: No History of Previous Suicide Attempt: Yes Describe Attempts in the Past: Benadryl overdose prior to admission Past Medication Trials: None - initiated on fluoxetine during his February 2019 admission Past Head Trauma/Neuro History History of Concussion/Seizure: No Allergies Allergy/AdvReac Type Severity Reaction Status Date / Time amoxicillin Allergy Hives Unverified 03/10/19 14:58 cashew nut Allergy Anaphylaxis Unverified 03/10/19 14:58 Home Medications Home Medications Medication Instructions Recorded Confirmed Type albuterol sulfate [ProAir HFA] 1 puff INHALATION Q6H PRN 04/27/19 04/27/19 History fluoxetine [Prozac] 40 mg PO DAILY 04/27/19 04/27/19 History hydroxyzine pamoate [Vistaril] 25 mg PO QID PRN 04/27/19 04/27/19 History Family History Family History of: Doesn't Know (not generally discussed in his family) Alcohol History Hx of Alcohol Use Over the Past 12 Months: Yes (Drinks alcohol on the weekends, about 7 drinks per day.) AUDIT Total Score: 7 Patient reports "limited access" to alcohol, but continues to consume on weekends. He admits to drinking a maximum of 10 alcoholic beverages on nights he partakes. States this amount is generally enough to "get drunk." Smoking Use Have You Smoked or Used Tobacco Products in the Last 30 Days: Yes tobacco type: e-cigarettes Smoking Status: Current every day smoker (States this is new since his last admission) Substance History Hx of Prescription Med Misuse Over the Past 12 Months: Yes Hx of Over the Counter Med Misuse Over the Past 12 Months: No Hx of Inhalent Misuse Over the Past 12 Months: No Hx of Organic Substance Use Over the Past 12 Months: Yes (Uses 1 gm of marijuana daily) Hx of Illegal Substances/Street Drug Use Over Past 12 Months: No Problems as a Result of Past Substance Use: None Identified Admits to using marijuana multiple times daily when available. States he last smoked on 04/26/2019. Personal History Living Arrangements: Dorm Living Arrangements Comments: Parents currently residing in [place], patient is an only child Highest Grade Completed: High School Graduate and Some College ([employer] Sophomore, majoring in Ukrainian and sociology, minoring in Uzbek) Highest Grade Completed Comment: Admits to recent struggles academically, prior GPA was reportedly a 3.6 Employment Status: Student Marital Status: Single Number Of Children: None Beliefs That Will Affect Care: None Current Legal Problems: No Hx Traumatic Life Events: Yes Psychological Trauma History Comment: Had to transfer to a new school at the age of 16 "for being cowart", as he had previously attended a private [employer] school. Reports loss of friends during that time. Patient History Medical History Asthma Depression (Acute) Family History Other No significant family history Social History Preferred Language: Ukrainian Communication Ability: Effective Vocational Placement Specialist Required: No Beliefs That Will Affect Care: None Feels Safe at Home: Yes Smoking Status: Current every day smoker (States this is new since his last admission) Tobacco Type: e-cigarettes ; Review of Systems Review of Systems: Constitutional: reports mild generalized weakness, dizziness, and feeling "shaky" Cardiovascular: denied Respiratory: denied Gastrointestinal: reports nausea, improved since receiving ondansetron Neurological: denied Psychiatric: denies symptoms other than stated above Total of at least 10 systems reviewed, pertinent positives as above and in HPI. Physical Exam Psychiatric: Orientation: alert, oriented x 3 and cooperative (timid, but pleasant) Apperance: appropriately dressed, appropriately groomed and appeared stated age Thin appearing biological male, with long neatly manicured silver-painted fingernails. Hair is a bit long, but appears clean and neatly styled. Pt is appropriately dressed in long-sleeve t-shirt and scrub pants. Level of grooming and hygiene appear adequate. Eye Contact: + fair eye contact Motor Behavior: steady gait and station and no abnormal motor movements Speech: normal rate/rhythm/volume of speech (Soft tone, somewhat timid during conversation) Affect: + depressed affect, + anxious affect and mood congruent with affect Mood: + depressed mood and + anxious mood "My mood has been all over the place, I have really good days and really bad days." Thought Process: goal directed thought process, clear/coherent thought process and thought association intact Thought Content: reality based without delusions, + hopelessness and + self deprecation Suicidal Thoughts: denies suicidal plan (But did overdose prior to admission); + reports suicidal thoughts (Remains actively suicidal) and + reports suicidal intent Homicidal Thoughts: denies homicidal thoughts Hallucinations: no auditory hallucinations and no visual hallucinations Cognition: attention grossly intact and language grossly intact Insight: + fair insight Judgement: + fair judgement Vital Signs (Past 24 Hours): Last Vital Signs Temp 36.4 C L 04/28/19 06:41 Pulse 79 04/28/19 06:42 Resp 18 04/28/19 06:41 BP 100/56 L 04/28/19 06:42 Pulse Ox 98 04/27/19 17:47 Exam Statement: A physical exam was performed in the ER prior to admission to the unit by Dr. Vero Mittal MD. I accept that physical as correct/medical clearance for the inpatient physical exam. Results & Data Laboratory Results Laboratory Results - last 24 hr 04/27/19 04/27/19 04/27/19 11:01 11:01 11:01 WBC 6.61 RBC 4.84 Hgb 15.4 Hct 44.7 MCV 92.4 MCH 31.8 MCHC 34.5 RDW Std Deviation 43.5 RDW Coeff of Jeffery 12.9 Plt Count 227 MPV 9.9 Immature Gran % (Auto) 0.2 Neut % (Auto) 74.5 Lymph % (Auto) 12.7 [place] % (Auto) 6.1 Eos % (Auto) 5.9 Baso % (Auto) 0.6 Immature Gran # (Auto) 0.01 Neut # (Auto) 4.93 Lymph # (Auto) 0.84 L [place] # (Auto) 0.40 Eos # (Auto) 0.39 Baso # (Auto) 0.04 Sodium 138 Potassium 4.0 Chloride 105 Carbon Dioxide 27 Anion Gap 6.0 BUN 12 Creatinine 1.16 Est Cr Clr Drug Dosing 81.9 Est GFR ( Amer) 104.5 Est GFR (Non-Af Amer) 90.2 BUN/Creatinine Ratio 10.5 Glucose 84 Calcium 8.9 Magnesium 2.2 Total Bilirubin 0.9 AST 14 L ALT 25 Alkaline Phosphatase 92 Total Protein 7.5 Albumin 4.4 Globulin 3.1 Albumin/Globulin Ratio 1.4 TSH Urine Color Urine Appearance Urine pH Ur Specific [place] Urine Protein Urine Glucose (UA) Urine Ketones Urine Blood Urine Nitrite Urine Bilirubin Urine Urobilinogen Ur Leukocyte Esterase Salicylates < 1.7 L Urine Opiates Screen Ur Methadone, Qual Acetaminophen < 2 L Urine Barbiturates Ur Phencyclidine (PCP) U Amphetamin/Meth Scrn MDMA (Ecstasy) Screen U Benzodiazepines Scrn Ur Cocaine Metabolite U Marijuana (THC) Screen U Marijuana THC Carboxy Drug Screen Comment Ethyl Alcohol mg/dL 04/27/19 04/27/19 04/27/19 11:01 11:01 12:07 WBC RBC Hgb Hct MCV MCH MCHC RDW Std Deviation RDW Coeff of Jeffery Plt Count MPV Immature Gran % (Auto) Neut % (Auto) Lymph % (Auto) [place] % (Auto) Eos % (Auto) Baso % (Auto) Immature Gran # (Auto) Neut # (Auto) Lymph # (Auto) [place] # (Auto) Eos # (Auto) Baso # (Auto) Sodium Potassium Chloride Carbon Dioxide Anion Gap BUN Creatinine Est Cr Clr Drug Dosing Est GFR ( Amer) Est GFR (Non-Af Amer) BUN/Creatinine Ratio Glucose Calcium Magnesium Total Bilirubin AST ALT Alkaline Phosphatase Total Protein Albumin Globulin Albumin/Globulin Ratio TSH 1.610 Urine Color Urine Appearance Urine pH Ur Specific [place] Urine Protein Urine Glucose (UA) Urine Ketones Urine Blood Urine Nitrite Urine Bilirubin Urine Urobilinogen Ur Leukocyte Esterase Salicylates Urine Opiates Screen Neg Ur Methadone, Qual Neg Acetaminophen Urine Barbiturates Neg Ur Phencyclidine (PCP) Neg U Amphetamin/Meth Scrn Neg MDMA (Ecstasy) Screen Neg U Benzodiazepines Scrn Neg Ur Cocaine Metabolite Neg U Marijuana (THC) Screen Pos H U Marijuana THC Carboxy Drug Screen Comment Ethyl Alcohol mg/dL < 3.0 04/27/19 04/27/19 12:07 Unknown WBC RBC Hgb Hct MCV MCH MCHC RDW Std Deviation RDW Coeff of Jeffery Plt Count MPV Immature Gran % (Auto) Neut % (Auto) Lymph % (Auto) [place] % (Auto) Eos % (Auto) Baso % (Auto) Immature Gran # (Auto) Neut # (Auto) Lymph # (Auto) [place] # (Auto) Eos # (Auto) Baso # (Auto) Sodium Potassium Chloride Carbon Dioxide Anion Gap BUN Creatinine Est Cr Clr Drug Dosing Est GFR ( Amer) Est GFR (Non-Af Amer) BUN/Creatinine Ratio Glucose Calcium Magnesium Total Bilirubin AST ALT Alkaline Phosphatase Total Protein Albumin Globulin Albumin/Globulin Ratio TSH Urine Color Yellow Urine Appearance Clear Urine pH 6.5 Ur Specific [place] 1.016 Urine Protein Negative Urine Glucose (UA) Negative Urine Ketones Negative Urine Blood Negative Urine Nitrite Negative Urine Bilirubin Negative Urine Urobilinogen Negative Ur Leukocyte Esterase Negative Salicylates Urine Opiates Screen Ur Methadone, Qual Acetaminophen Urine Barbiturates Ur Phencyclidine (PCP) U Amphetamin/Meth Scrn MDMA (Ecstasy) Screen U Benzodiazepines Scrn Ur Cocaine Metabolite U Marijuana (THC) Screen U Marijuana THC Carboxy Pending Drug Screen Comment Pending Ethyl Alcohol mg/dL Current Inpatient Medications Current Inpatient Medications: Current Inpatient Medications Acetaminophen (Tylenol) 650 mg PO Q4H PRN PRN Reason: Headache or Minor Fever Stop: 05/27/19 17:32 Al Hydrox/Mg Hydrox/Simethicone (Maalox) 30 ml PO Q4H PRN PRN Reason: GI Upset Stop: 05/27/19 17:32 Albuterol (Ventolin Hfa) 2 puffs INH Q4H PRN PRN Reason: asthma Stop: 05/27/19 17:38 Bismuth Subsalicylate (Kaopectate) 15 ml PO PRN PRN PRN Reason: Loose Stool Stop: 05/27/19 17:32 Fluoxetine HCl (Prozac) 40 mg PO QAM RAMEZ Stop: 05/28/19 08:59 Hydroxyzine HCl (Vistaril) 50 mg PO HSZ PRN PRN Reason: Insomnia Stop: 05/27/19 17:32 Hydroxyzine HCl (Vistaril) 25 mg PO Q4H PRN PRN Reason: Anxiety Stop: 05/27/19 17:32 Magnesium Hydroxide (Milk Of Magnesia) 30 ml PO DAILY PRN PRN Reason: Constipation Stop: 05/27/19 17:32 Sodium Chloride ([place] Nasal) 1 - 2 sprays NA PRN PRN PRN Reason: Nasal Dryness/Congestion Stop: 05/27/19 17:32
[2019-04-28] MEDS: FLUOXETINE HCL 20 MG CAP PO SCH (09:52)
[2019-04-28] MEDS ORDERED: ONDANSETRON 4 MG OD TAB PO PRN (10:35)
[2019-04-28 23:24] LABS: Marijuana Quant, GCMS Urine 171 ng/mL (<5)
[2019-04-29] MEDS: FLUOXETINE HCL 20 MG CAP PO SCH (08:42)
--- NOTE | 2019-04-29 11:41 | Psychiatric Progress Note ---
Date of Service April 29, 2019 Impression / Recommendations Impression 19-year-old male admitted voluntarily for inpatient psychiatric treatment on 04/27/2019, after presenting to the ED status post diphenhydramine overdose. Patient reportedly took #24 - 25mg tablets of diphenhydramine in an attempt to end his life. When patient awoke after his attempt, he reported feeling "disgusted" with himself, and called his mother who then called 911. Patient was admitted to our unit from 03/10/19 03/17/19 for depression and suicidal thoughts, but no active furtherance at that time. Patient's discharge, he admits he has not been attending classes and has had difficulty functioning due to the severity of his depression. Patient was initiated on fluoxetine during his inpatient admission in February, which was titrated by his outpatient psychiatrist to a dose of 40 mg within the past week. Patient states that the outpatient plan was to remain at this dose and observe for effects. Patient states he feels comfortable continuing this plan, allowing the focus of this inpatient admission to be on therapeutic interventions and coordinating aftercare and academics. Patient does indicate he is interested in pursuing a medical withdrawal. He was encouraged to involve parents in a family meeting, especially as his current plan is to return home after discharge. Patient will be encouraged to participate in group and recreational programming. At this time, patient continues to report suicidal ideation. He remains at high risk of suicide if he is discharged prematurely without adequate medication of risk factors. (1) Suicidal ideation: 04/28 - Admitted to a locked inpatient behavioral health unit, on q15 minute safety checks - Encourage medication initiation/adjustments as indicated - Encourage participation in group and recreational therapies - Gather collateral information from outpatient providers - Suggest family meeting to involve outpatient supports in safety planning - Arrange appropriate aftercare 04/29 - Denies active SI today, but remains unable to contract for safety outside of the hospital setting - Last episode of SI occurred last evening while attempting to fall asleep (2) Depression: 04/28 - Fluoxetine reportedly titrated to 40mg within the last week, patient reports outpatient plan was to continue medication at this dosage, which seems appropriate - Will request records from [facility] in order to gather collateral information - Pt considering medical withdrawal from school - if returning home with parents, he will require outpatient services be arranged prior to discharge - Encourage participation in group and recreational programming - Encourage involvement in a family meeting to discuss aftercare and safety planning 04/29 - Continue current dosage of fluoxetine 40mg - Will attempt to arrange outpatient psychiatric follow-up appointments closer to [place], as patient currently desire to withdraw from school and return home with parents after discharge - Pt willing to involve parents in a family meeting to discuss discharge and safety planning (3) Drug overdose: 04/28 - Will hold hydroxyzine at this time, given overdose of diphenhydramine prior to admission - Will continue to assess physical symptoms to determine when restart would be appropriate - Pt states he has been given 1-week supplies of his fluoxetine by his outpatient psychiatrist, may be beneficial to continue to limit access to surplus of medication 04/29 - Reporting improvement in physical symptoms today - Consider restart of prn hydroxyzine availability tomorrow (4) Asthma: 04/28 - Continue prn use of inhaler (5) Polysubstance abuse: 04/29 - Pt reports treatment goal of eliminating substance use; recognizing his tendency to abuse alcohol and cannabis when he is depressed or anxious. He self-reports thoughts to utilize additional substance such as "acid and Nanette" - but wants to avoid this. - Pt is agreeable with attempts to pursue a dual diagnosis therapist -Brief intervention was offered and accepted Intervention was greater than 5 min in length. Brief interventions include: 1. Assess Readiness to Quit, 2. Advise: Help Patient to Reduce or Abstain from Alcohol, 3. Agree: Set Specific, Feasible Goals, 4. Assist: Anticipate barriers, Problem-Solving Solutions. Social work to 5. Arrange: Referrals to appropriate treatment. Summary of intervention: The patient is in contemplation stage with regards to transtheoretical model of change. The patient is advised to decrease alcohol consumption due to depressant effects and risk of interactions with prescription medications. The patient was advised of recommendations for abstinence from alcohol and other abusable substances and to attend substance abuse treatment at discharge, and will be provided with recovery materials to continue to education self on how to cope with their condition without drinking. 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 Pt was admitted voluntarily on 04/27/19 for presenting to the ED having intentionally ingested #24 - 25mg diphenhydramine tablets around 2300 on 04/26/19 in a reported suicide attempt. Chief Complaint "Yesterday was really not good." Review of Systems Notes Constitutional: denied Cardiovascular: denied Respiratory: denied Gastrointestinal: denied Neurological: denied Psychiatric: denies symptoms other than stated above Total of at least 10 systems reviewed, pertinent positives as above and in HPI. Sleep Information Total Hours of Sleep: 6.75 Sleep Comments: pt on q-15 minute checks Meal Information Percent Meal Consumed - Breakfast: 0 Percent Meal Consumed - Lunch: 100 Percent Meal Consumed - Dinner: 50 Nutrition Comment: per meal record Subjective Subjective Patient was seen & assessed and interval progress reviewed with treatment team. Staff reports the patient was verbalizing some physical complaints of dizziness and mild nausea throughout the day yesterday. Last evening, he rated his mood a 2/10 and "disgusting." He has regularly been attending group programming. Patient was seen today to assess progress since admission. He states that yeste rday was "not good", as he was anxious about learning his parents were coming to visit him. Patient states he has since come to terms with this, and is feeling "a lot more calm." Patient states his parents are planning to be in town this evening, and have a hotel room "for the rest of the week." Patient is willing to have a family meeting with his parents to discuss aftercare and safety planning. He reports that presently he is hoping for his application for medical withdrawal to be improved, and to return home with his parents directly after discharge. Patient continues to verbalize desire to remain on 40 mg of fluoxetine. We spent some time discussing his goals for treatment. Patient states "I want to learn how to manage how I am feeling without alcohol and weed." Time was spent discussing his substance abuse history, and tendency to utilize substances to numb the emotional pain he is experiencing. Patient does state "I do not want to start getting into other things, and I have already thought about it. I have already thought about using uppers like acid or Nanette." Patient was asked to think about productive steps that can be taken to reduce and eventually eliminate his substance use. He does feel that returning home with his parents will be beneficial, as substance use would not be permitted within his home. Patient is also agreeable with considering a dual diagnosis therapist, who can also support him in this goal after discharge. Patient was agreeable with working through the recovery protocol book, and was encouraged to request assistance from staff as needed. Patient reports suicidal ideation last evening as he was attempting to fall asleep, but denies any suicidal thoughts throughout the day today. He denies other needs or concerns at this time. Physical Exam Psychiatric Orientation: alert, oriented x 3 and cooperative (shy, but pleasant) Apperance: appropriately dressed, appropriately groomed and appeared stated age thin-appearing male - does have neatly manicured silver-painted fingernails Eye Contact: good eye contact Motor Behavior: steady gait and station and no abnormal motor movements Speech: normal rate/rhythm/volume of speech (soft tone) Affect: + depressed affect, + anxious affect and mood congruent with affect Mood: + depressed mood ("A little better today, I feel more comfortable") and + anxious mood Thought Process: goal directed thought process, linear/logical thought process, clear/coherent thought process and thought association intact Thought Content: reality based without delusions and + self deprecation; no hopelessness Suicidal Thoughts: denies suicidal thoughts (presently ) Most recent episode of SI occurring last evening while attempting to fall asleep Homicidal Thoughts: denies homicidal thoughts Hallucinations: no auditory hallucinations and no visual hallucinations Cognition: remote memory grossly intact, attention grossly intact and language grossly intact Insight: + fair insight Judgement: + fair judgement Vital Signs (Past 24 Hours) Last Vital Signs Temp 36.4 C L 04/29/19 06:33 Pulse 58 L 04/29/19 06:33 Resp 18 04/29/19 06:33 BP 106/63 04/29/19 06:34 Pulse Ox 98 04/27/19 17:47 Results & Data Laboratory Results Laboratory Results - last 24 hr 04/27/19 12:07 U Marijuana THC Carboxy 171 H Drug Screen Comment SEE NOTE Current Inpatient Medications Current Inpatient Medications: Current Inpatient Medications Acetaminophen (Tylenol) 650 mg PO Q4H PRN PRN Reason: Headache or Minor Fever Stop: 05/27/19 17:32 Al Hydrox/Mg Hydrox/Simethicone (Maalox) 30 ml PO Q4H PRN PRN Reason: GI Upset Stop: 05/27/19 17:32 Albuterol (Ventolin Hfa) 2 puffs INH Q4H PRN PRN Reason: asthma Stop: 05/27/19 17:38 Bismuth Subsalicylate (Kaopectate) 15 ml PO PRN PRN PRN Reason: Loose Stool Stop: 05/27/19 17:32 Fluoxetine HCl (Prozac) 40 mg PO QAM RAMEZ Stop: 05/28/19 08:59 Last Admin: 04/29/19 08:42 Dose: 40 mg Documented by: Magnesium Hydroxide (Milk Of Magnesia) 30 ml PO DAILY PRN PRN Reason: Constipation Stop: 05/27/19 17:32 Ondansetron HCl (Zofran Odt) 4 mg PO Q6H PRN PRN Reason: Nausea Stop: 05/28/19 10:34 Last Admin: 04/28/19 11:20 Dose: 4 mg Documented by: Sodium Chloride ([place] Nasal) 1 - 2 sprays NA PRN PRN PRN Reason: Nasal Dryness/Congestion Stop: 05/27/19 17:32 Mental Health & Subst Abuse Tx Therapist Name of Therapist: Dc hdez [facility] Date of Therapist Appointment: 04/29/19 Finance Administrator Name of Finance Administrator: Lionel at [employer] [facility] Post Discharge Appointments Primary Care Physician Name Of Family Doctor: Dr. Shad Henao MD, [facility] (1) Depression Depression Type: unspecified Qualified Code(s): F32.9 - Major depressive disorder, single episode, unspecified (2) Drug overdose Encounter type: initial encounter Injury intent: intentional self-harm Qualified Code(s): T50.902A - Poisoning by unspecified drugs, medicaments and biological substances, intentional self-harm, initial encounter (3) Asthma Asthma complication type: unspecified Asthma persistence: unspecified Asthma severity: unspecified severity Qualified Code(s): J45.909 - Unspecified asthma, uncomplicated
[2019-04-30] MEDS: FLUOXETINE HCL 20 MG CAP PO SCH (09:00)
--- NOTE | 2019-04-30 10:19 | Psychiatric Progress Note ---
Date of Service April 30, 2019 Impression / Recommendations Impression 19-year-old male admitted voluntarily for inpatient psychiatric treatment on 04/27/2019, after presenting to the ED status post diphenhydramine overdose. Patient reportedly took #24 - 25mg tablets of diphenhydramine in an attempt to end his life. When patient awoke after his attempt, he reported feeling "disgusted" with himself, and called his mother who then called 911. Patient was admitted to our unit from 03/10/19 03/17/19 for depression and suicidal thoughts, but no active furtherance at that time. Patient's discharge, he admits he has not been attending classes and has had difficulty functioning due to the severity of his depression. Patient was initiated on fluoxetine during his inpatient admission in February, which was titrated by his outpatient psychiatrist to a dose of 40 mg within the past week. Patient states that the outpatient plan was to remain at this dose and observe for effects. Patient states he feels comfortable continuing this plan, allowing the focus of this inpatient admission to be on therapeutic interventions and coordinating aftercare and academics. Patient does indicate he is interested in pursuing a medical withdrawal. He was encouraged to involve parents in a family meeting, especially as his current plan is to return home after discharge. Patient will be encouraged to participate in group and recreational programming. At this time, patient continues to report suicidal ideation. He remains at high risk of suicide if he is discharged prematurely without adequate medication of risk factors. (1) Suicidal ideation: 04/28 - Admitted to a locked inpatient behavioral health unit, on q15 minute safety checks - Encourage medication initiation/adjustments as indicated - Encourage participation in group and recreational therapies - Gather collateral information from outpatient providers - Suggest family meeting to involve outpatient supports in safety planning - Arrange appropriate aftercare 04/29 - Denies active SI today, but remains unable to contract for safety outside of the hospital setting - Last episode of SI occurred last evening while attempting to fall asleep 04/30 - Denies active SI today, but reports his mood as "empty" with limited motivation - Still requires meeting with parents to discuss safety planning after discharge (2) Depression: 04/28 - Fluoxetine reportedly titrated to 40mg within the last week, patient reports outpatient plan was to continue medication at this dosage, which seems appropriate - Will request records from [facility] in order to gather collateral information - Pt considering medical withdrawal from school - if returning home with parents, he will require outpatient services be arranged prior to discharge - Encourage participation in group and recreational programming - Encourage involvement in a family meeting to discuss aftercare and safety planning 04/29 - Continue current dosage of fluoxetine 40mg - Will attempt to arrange outpatient psychiatric follow-up appointments closer to [place], as patient currently desire to withdraw from school and return home with parents after discharge - Pt willing to involve parents in a family meeting to discuss discharge and safety planning 04/30 - Continue fluoxetine 40mg - Family meeting this afternoon with parents - Continue to encourage participation in group and recreational programming (3) Drug overdose: 04/28 - Will hold hydroxyzine at this time, given overdose of diphenhydramine prior to admission - Will continue to assess physical symptoms to determine when restart would be appropriate - Pt states he has been given 1-week supplies of his fluoxetine by his outpatient psychiatrist, may be beneficial to continue to limit access to surplus of medication 04/29 - Reporting improvement in physical symptoms today - Consider restart of prn hydroxyzine availability tomorrow 04/30 - Home dose of hydroxyzine is now available, as patient denies continued physical symptoms related to diphenhydramine overdose (4) Asthma: 04/28 - Continue prn use of inhaler 04/30 - Required use of his rescue inhaler last evening, prior to panic attack (5) Polysubstance abuse: 04/29 - Pt reports treatment goal of eliminating substance use; recognizing his tendency to abuse alcohol and cannabis when he is depressed or anxious. He self-reports thoughts to utilize additional substance such as "acid and Nanette" - but wants to avoid this. - Pt is agreeable with attempts to pursue a dual diagnosis therapist -Brief intervention was offered and accepted Intervention was greater than 5 min in length. Brief interventions include: 1. Assess Readiness to Quit, 2. Advise: Help Patient to Reduce or Abstain from Alcohol, 3. Agree: Set Specific, Feasible Goals, 4. Assist: Anticipate barriers, Problem-Solving Solutions. Social work to 5. Arrange: Referrals to appropriate treatment. Summary of intervention: The patient is in contemplation stage with regards to transtheoretical model of change. The patient is advised to decrease alcohol consumption due to depressant effects and risk of interactions with prescription medications. The patient was advised of recommendations for abstinence from alcohol and other abusable substances and to attend substance abuse treatment at discharge, and will be provided with recovery materials to continue to education self on how to cope with their condition without drinking. 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 Pt was admitted voluntarily on 04/27/19 for presenting to the ED having intentionally ingested #24 - 25mg diphenhydramine tablets around 2300 on 04/26/19 in a reported suicide attempt. Chief Complaint "I am not so good today. I did not sleep last night." Review of Systems Notes Constitutional: reports poor sleep last evening Cardiovascular: denied Respiratory: denied Gastrointestinal: denied Neurological: denied Psychiatric: denies symptoms other than stated above Total of at least 10 systems reviewed, pertinent positives as above and in HPI. Sleep Information Total Hours of Sleep: 5 Sleep Comments: panic attack at the end of 07/28 shift-calmed after staff assistance-able to fall to sleep on 0100 rounds. Meal Information Percent Meal Consumed - Breakfast: 0 Percent Meal Consumed - Lunch: 100 Percent Meal Consumed - Dinner: 75 Nutrition Comment: per meal record Subjective Subjective Patient was seen & assessed and interval progress reviewed with nursing and social work. Staff reports the patient has continued to participate in group and recreational programming. He has a meeting scheduled for this afternoon with his parents. Patient was seen today to assess progress since admission. He states that he is "not very good" today, relating this to poor sleep. Patient states that he required use of his rescue inhaler last evening, and suffered a anxiety attack shortly after. Patient denies specific trigger for his panic attack. Patient states he has begun work on his recovery process, having completed his life story last evening. He remains motivated to eliminate his urge to use substances. We reviewed anticipated family meeting this afternoon, patient denies feeling particularly anxious. He does admit that he was "terrified last time", and states he is somewhat nervous about sharing with his family the truth regarding his substance use. Patient denies suicidal ideation since two evenings ago; however, he describes his mood today as "empty." He denies other needs or concerns at this time. Physical Exam Psychiatric Orientation: alert, oriented x 3 and cooperative (And pleasant) Apperance: appropriately dressed (Wearing hoodie and pajama pants), appropriately groomed (Recently showered, neatly manicured and painted fingernails) and appeared stated age Eye Contact: + fair eye contact Motor Behavior: steady gait and station and no abnormal motor movements Speech: normal rate/rhythm/volume of speech (Spontaneous, but brief responses to questions today) Affect: + depressed affect, + anxious affect and mood congruent with affect Mood: + depressed mood and + anxious mood Patient reports feeling "not very good today", stating his mood is "empty" Thought Process: goal directed thought process, clear/coherent thought process and thought association intact Thought Content: reality based without delusions, + hopelessness, + guilt and + self deprecation Suicidal Thoughts: denies suicidal thoughts and denies suicidal intent Homicidal Thoughts: denies homicidal thoughts Hallucinations: no auditory hallucinations and no visual hallucinations Cognition: attention grossly intact and language grossly intact Insight: + fair insight Judgement: + fair judgement Vital Signs (Past 24 Hours) Last Vital Signs Temp 36.5 C 04/30/19 06:35 Pulse 75 04/30/19 06:36 Resp 18 04/30/19 06:35 BP 109/71 04/30/19 06:36 Pulse Ox 98 04/27/19 17:47 Results & Data Current Inpatient Medications Current Inpatient Medications: Current Inpatient Medications Acetaminophen (Tylenol) 650 mg PO Q4H PRN PRN Reason: Headache or Minor Fever Stop: 05/27/19 17:32 Al Hydrox/Mg Hydrox/Simethicone (Maalox) 30 ml PO Q4H PRN PRN Reason: GI Upset Stop: 05/27/19 17:32 Albuterol (Ventolin Hfa) 2 puffs INH Q4H PRN PRN Reason: asthma Stop: 05/27/19 17:38 Last Admin: 04/29/19 23:15 Dose: 2 puffs Documented by: Bismuth Subsalicylate (Kaopectate) 15 ml PO PRN PRN PRN Reason: Loose Stool Stop: 05/27/19 17:32 Fluoxetine HCl (Prozac) 40 mg PO QAM RAMEZ Stop: 05/28/19 08:59 Last Admin: 04/30/19 09:00 Dose: 40 mg Documented by: Hydroxyzine HCl (Vistaril) 25 mg PO Q4H PRN PRN Reason: Anxiety Stop: 05/30/19 08:36 Hydroxyzine HCl (Vistaril) 50 mg PO HS PRN PRN Reason: Insomnia Stop: 05/30/19 10:09 Magnesium Hydroxide (Milk Of Magnesia) 30 ml PO DAILY PRN PRN Reason: Constipation Stop: 05/27/19 17:32 Ondansetron HCl (Zofran Odt) 4 mg PO Q6H PRN PRN Reason: Nausea Stop: 05/28/19 10:34 Last Admin: 04/28/19 11:20 Dose: 4 mg Documented by: Sodium Chloride ([place] Nasal) 1 - 2 sprays NA PRN PRN PRN Reason: Nasal Dryness/Congestion Stop: 05/27/19 17:32 Mental Health & Subst Abuse Tx Therapist Name of Therapist: Dc hdez [facility] Date of Therapist Appointment: 04/29/19 Hydramatic Mechanic Name of Hydramatic Mechanic: Lionel at [employer] [facility] Post Discharge Appointments Primary Care Physician Name Of Family Doctor: Dr. Shad Henao MD, [facility] (1) Depression Depression Type: unspecified Qualified Code(s): F32.9 - Major depressive disorder, single episode, unspecified (2) Drug overdose Encounter type: initial encounter Injury intent: intentional self-harm Qualified Code(s): T50.902A - Poisoning by unspecified drugs, medicaments and biological substances, intentional self-harm, initial encounter (3) Asthma Asthma complication type: unspecified Asthma persistence: unspecified Asthma severity: unspecified severity Qualified Code(s): J45.909 - Unspecified asthma, uncomplicated
[2019-05-01] MEDS: FLUOXETINE HCL 20 MG CAP PO SCH (08:49)
--- NOTE | 2019-05-01 09:30 | Psychiatric Progress Note ---
Date of Service May 01, 2019 Impression / Recommendations Impression 19-year-old male admitted voluntarily for inpatient psychiatric treatment on 04/27/2019, after presenting to the ED status post diphenhydramine overdose. Patient reportedly took #24 - 25mg tablets of diphenhydramine in an attempt to end his life. When patient awoke after his attempt, he reported feeling "disgusted" with himself, and called his mother who then called 911. Patient was admitted to our unit from 03/10/19 03/17/19 for depression and suicidal thoughts, but no active furtherance at that time. Patient's discharge, he admits he has not been attending classes and has had difficulty functioning due to the severity of his depression. Patient was initiated on fluoxetine during his inpatient admission in February, which was titrated by his outpatient psychiatrist to a dose of 40 mg within the past week. Patient states that the outpatient plan was to remain at this dose and observe for effects. Patient states he feels comfortable continuing this plan, allowing the focus of this inpatient admission to be on therapeutic interventions and coordinating aftercare and academics. Patient does indicate he is interested in pursuing a medical withdrawal. He involved parents in a family meeting, in which aftercare and safety plans were reviewed. Patient will be encouraged to participate in group and recreational programming. At this time, patient continues to report suicidal ideation. He remains at high risk of suicide if he is discharged prematurely without adequate medication of risk factors. (1) Suicidal ideation: 04/28 - Admitted to a locked inpatient behavioral health unit, on q15 minute safety checks - Encourage medication initiation/adjustments as indicated - Encourage participation in group and recreational therapies - Gather collateral information from outpatient providers - Suggest family meeting to involve outpatient supports in safety planning - Arrange appropriate aftercare 04/29 - Denies active SI today, but remains unable to contract for safety outside of the hospital setting - Last episode of SI occurred last evening while attempting to fall asleep 04/30 - Denies active SI today, but reports his mood as "empty" with limited motivation - Still requires meeting with parents to discuss safety planning after discharge 05/01 - Denies active SI, reporting more positive mood today (2) Depression: 04/28 - Fluoxetine reportedly titrated to 40mg within the last week, patient reports outpatient plan was to continue medication at this dosage, which seems appropriate - Will request records from [facility] in order to gather collateral information - Pt considering medical withdrawal from school - if returning home with parents, he will require outpatient services be arranged prior to discharge - Encourage participation in group and recreational programming - Encourage involvement in a family meeting to discuss aftercare and safety planning 04/29 - Continue current dosage of fluoxetine 40mg - Will attempt to arrange outpatient psychiatric follow-up appointments closer to [place], as patient currently desire to withdraw from school and return home with parents after discharge - Pt willing to involve parents in a family meeting to discuss discharge and safety planning 04/30 - Continue fluoxetine 40mg - Family meeting this afternoon with parents - Continue to encourage participation in group and recreational programming 05/01 - Continue fluoxetine 40mg - Continue attempts to set up aftercare, as patient has decided he is returni to [place] to be with his parents and not returning to [place] (3) Drug overdose: 04/28 - Will hold hydroxyzine at this time, given overdose of diphenhydramine prior to admission - Will continue to assess physical symptoms to determine when restart would be appropriate - Pt states he has been given 1-week supplies of his fluoxetine by his outpatient psychiatrist, may be beneficial to continue to limit access to surplus of medication 04/29 - Reporting improvement in physical symptoms today - Consider restart of prn hydroxyzine availability tomorrow 04/30 - Home dose of hydroxyzine is now available, as patient denies continued physical symptoms related to diphenhydramine overdose (4) Asthma: 04/28 - Continue prn use of inhaler 04/30 - Required use of his rescue inhaler last evening, prior to panic attack (5) Polysubstance abuse: 04/29 - Pt reports treatment goal of eliminating substance use; recognizing his tendency to abuse alcohol and cannabis when he is depressed or anxious. He self-reports thoughts to utilize additional substance such as "acid and Nanette" - but wants to avoid this. - Pt is agreeable with attempts to pursue a dual diagnosis therapist -Brief intervention was offered and accepted Intervention was greater than 5 min in length. Brief interventions include: 1. Assess Readiness to Quit, 2. Advise: Help Patient to Reduce or Abstain from Alcohol, 3. Agree: Set Specific, Feasible Goals, 4. Assist: Anticipate barriers, Problem-Solving Solutions. Social work to 5. Arrange: Referrals to appropriate treatment. Summary of intervention: The patient is in contemplation stage with regards to transtheoretical model of change. The patient is advised to decrease alcohol consumption due to depressant effects and risk of interactions with prescription medications. The patient was advised of recommendations for abstinence from alcohol and other abusable substances and to attend substance abuse treatment at discharge, and will be provided with recovery materials to continue to education self on how to cope with their condition without drinking. 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 Pt was admitted voluntarily on 04/27/19 for presenting to the ED having intentionally ingested #24 - 25mg diphenhydramine tablets around 2300 on 04/26/19 in a reported suicide attempt. Chief Complaint "The meeting was great. I said everything I wanted to." Review of Systems Notes Constitutional: reports improved sleep last evening Cardiovascular: denied Respiratory: denied Gastrointestinal: denied Neurological: denied Psychiatric: denies symptoms other than stated above Total of at least 10 systems reviewed, pertinent positives as above and in HPI. Sleep Information Total Hours of Sleep: 6.5 Meal Information Percent Meal Consumed - Breakfast: 0 Percent Meal Consumed - Lunch: 100 Percent Meal Consumed - Dinner: 100 Nutrition Comment: per meal record Subjective Subjective Patient was seen & assessed and interval progress reviewed with treatment team. Staff reports the patient decided on a permanent withdrawal from [facility], and is planning to return home with his parents after he is discharged. Patient rated his mood a 7/10 and "more prepared" last evening; however, staff reports he continues to appear flat and depressed. Patient had a family meeting yesterday afternoon, in which patient was able to honestly discuss mood symptoms and substance use with his parents, who remain supportive overall. Patient was seen today to assess progress since admission. He states that he slept better last evening, and feels noticeable improvement all around today. Patient states that his meeting with parents was "great, I said everything I wanted to. My mom even said she understood some things, because she struggled with it too." Patient states that his overall goal at this point is to "be okay with not being perfect, to set more realistic goals for myself." Patient was able to provide some insightful thoughts in regards to this goal. He denies suicidal ideation, but admits that he is still working on processing what has led him to this point. He denies acute needs or concerns today. Physical Exam Psychiatric Orientation: alert, oriented x 3 and cooperative (Shy, but pleasant and interactive) Apperance: appropriately dressed, appropriately groomed and appeared stated age Eye Contact: good eye contact Motor Behavior: steady gait and station and no abnormal motor movements Speech: normal rate/rhythm/volume of speech Affect: + depressed affect (Appearing improved, patient does smile periodically during conversation) and mood congruent with affect Mood: no depressed mood (Patient cautiously states he is "good" today, feeling mood is improved) Thought Process: goal directed thought process, linear/logical thought process, clear/coherent thought process and thought association intact Thought Content: reality based without delusions and + self deprecation (ongoing but significantly improved, working on ways to be more positive); no hopelessness Suicidal Thoughts: denies suicidal thoughts Homicidal Thoughts: denies homicidal thoughts Hallucinations: no auditory hallucinations and no visual hallucinations Cognition: attention grossly intact and language grossly intact Insight: good insight Judgement: good judgement Vital Signs (Past 24 Hours) Last Vital Signs Temp 36.4 C L 05/01/19 06:33 Pulse 82 05/01/19 06:33 Resp 18 05/01/19 06:33 BP 111/75 05/01/19 06:33 Pulse Ox 98 04/27/19 17:47 Results & Data Current Inpatient Medications Current Inpatient Medications: Current Inpatient Medications Acetaminophen (Tylenol) 650 mg PO Q4H PRN PRN Reason: Headache or Minor Fever Stop: 05/27/19 17:32 Al Hydrox/Mg Hydrox/Simethicone (Maalox) 30 ml PO Q4H PRN PRN Reason: GI Upset Stop: 05/27/19 17:32 Albuterol (Ventolin Hfa) 2 puffs INH Q4H PRN PRN Reason: asthma Stop: 05/27/19 17:38 Last Admin: 12/11/19 23:15 Dose: 2 puffs Documented by: Bismuth Subsalicylate (Kaopectate) 15 ml PO PRN PRN PRN Reason: Loose Stool Stop: 05/27/19 17:32 Fluoxetine HCl (Prozac) 40 mg PO QAM RAMEZ Stop: 05/28/19 08:59 Last Admin: 05/01/19 08:49 Dose: 40 mg Documented by: Hydroxyzine HCl (Vistaril) 25 mg PO Q4H PRN PRN Reason: Anxiety Stop: 05/30/19 08:36 Last Admin: 04/30/19 12:38 Dose: 25 mg Documented by: Hydroxyzine HCl (Vistaril) 50 mg PO HS PRN PRN Reason: Insomnia Stop: 05/30/19 10:09 Last Admin: 04/30/19 22:35 Dose: 50 mg Documented by: Magnesium Hydroxide (Milk Of Magnesia) 30 ml PO DAILY PRN PRN Reason: Constipation Stop: 05/27/19 17:32 Ondansetron HCl (Zofran Odt) 4 mg PO Q6H PRN PRN Reason: Nausea Stop: 05/28/19 10:34 Last Admin: 04/28/19 11:20 Dose: 4 mg Documented by: Sodium Chloride ([place] Nasal) 1 - 2 sprays NA PRN PRN PRN Reason: Nasal Dryness/Congestion Stop: 05/27/19 17:32 Mental Health & Subst Abuse Tx Therapist Name of Therapist: Dc hdez [facility] Date of Therapist Appointment: 04/29/19 [employer] Name of [employer]: [facility] - [facility] Phone Number for [employer]: [phone] Case Management Appointment Comment: [address] [facility] Post Discharge Appointments Primary Care Physician Name Of Family Doctor: [facility], Pediatrics - Dr. Shad Henao MD Primary Care Time of Appointment with PCP: Please follow up as needed Provider Appointment Comment: [address] [place] [phone] Contact Information Discharge Discharge [address]: [address] [place] [phone] (1) Depression Depression Type: unspecified Qualified Code(s): F32.9 - Major depressive disorder, single episode, unspecified (2) Drug overdose Encounter type: initial encounter Injury intent: intentional self-harm Qualified Code(s): T50.902A - Poisoning by unspecified drugs, medicaments and biological substances, intentional self-harm, initial encounter (3) Asthma Asthma complication type: unspecified Asthma persistence: unspecified Asthma severity: unspecified severity Qualified Code(s): J45.909 - Unspecified asthma, uncomplicated
[2019-05-02] MEDS: FLUOXETINE HCL 20 MG CAP PO SCH (08:23)
--- NOTE | 2019-05-02 12:59 | Psychiatric Progress Note ---
Date of Service May 02, 2019 Impression / Recommendations Impression 19-year-old male admitted voluntarily for inpatient psychiatric treatment on 04/27/2019, after presenting to the ED status post diphenhydramine overdose. Patient reportedly took #24 - 25mg tablets of diphenhydramine in an attempt to end his life. When patient awoke after his attempt, he reported feeling "disgusted" with himself, and called his mother who then called 911. Patient was admitted to our unit from 03/10/19 03/17/19 for depression and suicidal thoughts, but no active furtherance at that time. The patient's mood and affect have improved considerably during the current hospitalization. He attributes this to continued use of antidepressant medications, continued supportive psychotherapeutic interventions, a sense of greater support from his parents regarding his sexuality, and some relief at having made a decision to withdraw from [facility]. He says that 1 of the problems that he has been having here in [place] is a sense of isolation, and he believes that it was a mistake for him to have chosen to go to school in a small town, rather than a large city that would be more likely to offer him the types of social and entertainment opportunities that he seeks. Patient also notes that he believes that he will be "safer" at home with his parents for the time being. (1) Suicidal ideation: 04/28 - Admitted to a locked inpatient behavioral health unit, on q15 minute safety checks - Encourage medication initiation/adjustments as indicated - Encourage participation in group and recreational therapies - Gather collateral information from outpatient providers - Suggest family meeting to involve outpatient supports in safety planning - Arrange appropriate aftercare 04/29 - Denies active SI today, but remains unable to contract for safety outside of the hospital setting - Last episode of SI occurred last evening while attempting to fall asleep 04/30 - Denies active SI today, but reports his mood as "empty" with limited motivation - Still requires meeting with parents to discuss safety planning after discharge 05/01 - Denies active SI, reporting more positive mood today 05/02 -The patient continues to report that he is having no thoughts of suicide at this point. He says that for him suicidal ideation occurs briefly and transiently, and his suicide attempts have been impulsive. -Within this context, the patient had notes that he and his mother have discussed a plan to help him avoid impulsively overdosing on medications once he has returned to the family home. -Specifically, the patient has asked his mother to hold his psychiatric medications and dispense them in small quantities to him as prescribed. -We emphasized the importance of completing a safety plan in anticipation of discharge next week. The patient tells us that his plan to date includes letting his mother know if his suicidal thoughts have returned, particularly if he has the impulse to act on them. -I taught the patient several mindfulness strategies, and asked the patient to practice 1 of them during the encounter today. He notes that often his suicidality comes from "downward spirals" associated with ruminative thinking and negative self talk. (2) Depression: 04/28 - Fluoxetine reportedly titrated to 40mg within the last week, patient reports outpatient plan was to continue medication at this dosage, which seems appropriate - Will request records from [facility] in order to gather collateral information - Pt considering medical withdrawal from school - if returning home with parents, he will require outpatient services be arranged prior to discharge - Encourage participation in group and recreational programming - Encourage involvement in a family meeting to discuss aftercare and safety planning 04/29 - Continue current dosage of fluoxetine 40mg - Will attempt to arrange outpatient psychiatric follow-up appointments closer to [place], as patient currently desire to withdraw from school and return home with parents after discharge - Pt willing to involve parents in a family meeting to discuss discharge and safety planning 04/30 - Continue fluoxetine 40mg - Family meeting this afternoon with parents - Continue to encourage participation in group and recreational programming 05/01 - Continue fluoxetine 40mg - Continue attempts to set up aftercare, as patient has decided he is returning to [place] to be with his parents and not returning to [employer] 05/02 -Patient reports that his mood is significantly better, and his affect is clearly much brighter. -He is tolerating fluoxetine 40 mg well. Side effects of fluoxetine were reviewed with the patient, and he notes that he is not having any of these. (3) Drug overdose: 04/28 - Will hold hydroxyzine at this time, given overdose of diphenhydramine prior to admission - Will continue to assess physical symptoms to determine when restart would be appropriate - Pt states he has been given 1-week supplies of his fluoxetine by his outpatient psychiatrist, may be beneficial to continue to limit access to surplus of medication 04/29 - Reporting improvement in physical symptoms today - Consider restart of prn hydroxyzine availability tomorrow 04/30 - Home dose of hydroxyzine is now available, as patient denies continued p hysical symptoms related to diphenhydramine overdose (4) Asthma: 04/28 - Continue prn use of inhaler 04/30 - Required use of his rescue inhaler last evening, prior to panic attack (5) Polysubstance abuse: 04/29 - Pt reports treatment goal of eliminating substance use; recognizing his tendency to abuse alcohol and cannabis when he is depressed or anxious. He self-reports thoughts to utilize additional substance such as "acid and Nanette" - but wants to avoid this. - Pt is agreeable with attempts to pursue a dual diagnosis therapist -Brief intervention was offered and accepted Intervention was greater than 5 min in length. Brief interventions include: 1. Assess Readiness to Quit, 2. Advise: Help Pa tient to Reduce or Abstain from Alcohol, 3. Agree: Set Specific, Feasible Goals, 4. Assist: Anticipate barriers, Problem-Solving Solutions. Social work to 5. Arrange: Referrals to appropriate treatment. Summary of intervention: The patient is in contemplation stage with regards to transtheoretical model of change. The patient is advised to decrease alcohol consumption due to depressant effects and risk of interactions with prescription medications. The patient was advised of recommendations for abstinence from alcohol and other abusable substances and to attend substance abuse treatment at discharge, and will be provided with recovery materials to continue to education self on how to cope with their condition without drinking. 05/02 -The patient has been receiving substance abuse focused counseling in the hospital, and today was reminded that the abuse of mood altering chemical substances can, in fact, cause or substantially contributed to alterations in mood, including depression. -The plan remains for the patient to seek dual diagnosis outpatient treatment following discharge. -He notes that he believes his parents will serve as sober supports. 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 Pt was admitted voluntarily on 04/27/19 for presenting to the ED having intentionally ingested #24 - 25mg diphenhydramine tablets around 2300 on 04/26/19 in a reported suicide attempt. Chief Complaint "Better. [Depression]". Review of Systems Sleep Information Total Hours of Sleep: 7 Sleep Comments: panic attack at the end of 07/28 shift-calmed after staff assistance-able to fall to sleep on 0100 rounds. Meal Information Percent Meal Consumed - Breakfast: 100 Percent Meal Consumed - Lunch: 100 Percent Meal Consumed - Dinner: 100 Nutrition Comment: per meal record Subjective Subjective Patient was seen & assessed and interval progress reviewed with treatment team. I met individually with the patient in order to assess his current mental status, evaluate his response to treatment, make any necessary changes in the patient's treatment regimen and coordination with the patient, and address issues and concerns that may arise. I commented upon the fact that the patient's affect seemed much brighter than it had the last time I saw him, and the patient confirmed that he is feeling "a lot better." He tells me that he feels that his mood has improved and heart rate in response to continued use of antidepressant medications, and response to treatment, and, also, in response to his decision to at least temporarily dropped out at [employer] and pursue an education in a larger city, such as [place]. 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 He also says that the types of social outlets that he seeks are not typically available in small towns and that he feels that [place] is primarily or almost extensively committed the purpose of supporting an educational institution. The patient also expressed pleasure and the fact that he believes that his parents, orthodoxy conservatives, are becoming more accepting of his sexuality . He notes that he remains somewhat ambivalent about his gender identity, and is not sure if he identifies male, female, or non-binary. However, for the time being, he tells us that he prefers that we use masculine pronouns because those of the pronouns with which he is most familiar and, as above, has not yet decided how to identify gender. Physical Exam Psychiatric Orientation: alert, oriented x 3 and cooperative Apperance: appropriately dressed and appropriately groomed Eye Contact: good eye contact Motor Behavior: steady gait and station Speech: normal rate/rhythm/volume of speech Affect: euthymic affect The patient is more animated, and smiles much more frequently than on any other encounter that I have had with the patient. "I think my mood is pretty good. I am not depressed. I am a little nervous." Thought Process: goal directed thought process and linear/logical thought process Thought Content: reality based without delusions Suicidal Thoughts: denies suicidal thoughts The patient discussed strategies that he has developed to help prevent future suicide attempts. He plans to live at home with his parents. His mother's home during the day, and his mother has expressed an eagerness for him to use her as a source of support should suicidal thoughts reemerge. He also indicates that he will ask his mother to hold onto his medications and dispense them in small quantities, given the circumstances that led to the current admission. Homicidal Thoughts: denies homicidal thoughts Hallucinations: no auditory hallucinations Cognition: recent memory grossly intact, remote memory grossly intact, attention grossly intact and language grossly intact Estimated Intelligence: average estimated intelligence Insight: + limited insight Judgement: good judgement Vital Signs (Past 24 Hours) Last Vital Signs Temp 36.6 C 05/02/19 06:37 Pulse 73 05/02/19 06:39 Resp 16 05/02/19 06:37 BP 108/73 05/02/19 06:39 Pulse Ox 98 04/27/19 17:47 Results & Data Current Inpatient Medications Current Inpatient Medications: Current Inpatient Medications Acetaminophen (Tylenol) 650 mg PO Q4H PRN PRN Reason: Headache or Minor Fever Stop: 05/27/19 17:32 Al Hydrox/Mg Hydrox/Simethicone (Maalox) 30 ml PO Q4H PRN PRN Reason: GI Upset Stop: 05/27/19 17:32 Albuterol (Ventolin Hfa) 2 puffs INH Q4H PRN PRN Reason: asthma Stop: 05/27/19 17:38 Last Admin: 04/29/19 23:15 Dose: 2 puffs Documented by: Bismuth Subsalicylate (Kaopectate) 15 ml PO PRN PRN PRN Reason: Loose Stool Stop: 05/27/19 17:32 Fluoxetine HCl (Prozac) 40 mg PO QAM RAMEZ Stop: 05/28/19 08:59 Last Admin: 05/02/19 08:23 Dose: 40 mg Documented by: Hydroxyzine HCl (Vistaril) 25 mg PO Q4H PRN PRN Reason: Anxiety Stop: 05/30/19 08:36 Last Admin: 04/30/19 12:38 Dose: 25 mg Documented by: Hydroxyzine HCl (Vistaril) 50 mg PO HS PRN PRN Reason: Insomnia Stop: 05/30/19 10:09 Last Admin: 04/30/19 22:35 Dose: 50 mg Documented by: Magnesium Hydroxide (Milk Of Magnesia) 30 ml PO DAILY PRN PRN Reason: Constipation Stop: 05/27/19 17:32 Ondansetron HCl (Zofran Odt) 4 mg PO Q6H PRN PRN Reason: Nausea Stop: 05/28/19 10:34 Last Admin: 04/28/19 11:20 Dose: 4 mg Documented by: Sodium Chloride (Newberry Nasal) 1 - 2 sprays NA PRN PRN PRN Reason: Nasal Dryness/Congestion Stop: 05/27/19 17:32 Mental Health & Subst Abuse Tx Therapist Name of Therapist: [facility] Date of Therapist Appointment: 04/29/19 Targeting Acquisition Officer Name of Targeting Acquisition Officer: [facility] - [facility] Phone Number for Targeting Acquisition Officer: [phone] Case Management Appointment Comment: [address] [place] [address] Post Discharge Appointments Primary Care Physician Name Of Family Doctor: [facility], Pediatrics - Dr. Shad Henao MD Primary Care Time of Appointment with PCP: Please follow up as needed Provider Appointment Comment: [address] [place] [id number] Contact Information Discharge Discharge [address] [address] [place] [id number] (1) Depression Depression Type: unspecified Qualified Code(s): F32.9 - Major depressive disorder, single episode, unspecified (2) Drug overdose Encounter type: initial encounter Injury intent: intentional self-harm Qualified Code(s): T50.902A - Poisoning by unspecified drugs, medicaments and biological substances, intentional self-harm, initial encounter (3) Asthma Asthma severity: unspecified severity Asthma persistence: unspecified Asthma complication type: unspecified Qualified Code(s): J45.909 - Unspecified asthma, uncomplicated
--- NOTE | 2019-05-03 07:13 | Psychiatric Progress Note ---
Date of Service May 03, 2019 Impression / Recommendations Impression 19-year-old male admitted voluntarily for inpatient psychiatric treatment on 04/27/2019 after presenting to the ED status post diphenhydramine overdose. He reported taking #24 tablets of 25mg diphenhydramine in an attempt to end his life. When patient awoke after his attempt, he reported feeling "disgusted" with himself, called his mother who then called 911. Patient was admitted to our unit from 03/10/19 03/17/19 for depression and suicidal thoughts. He is improving and we are working on aftercare in his hometown as he is planning to withdraw from school and move home. He had been improving, but reports worsening mood since last evening with suicidal ideation. Inpatient treatment remains medically necessary due to the severity of symptoms and risk for suicide if discharged. (1) Suicidal ideation: 04/28 - Admitted to a locked inpatient behavioral health unit, on q15 minute safety checks - Encourage medication initiation/adjustments as indicated - Encourage participation in group and recreational therapies - Gather collateral information from outpatient providers - Suggest family meeting to involve outpatient supports in safety planning - Arrange appropriate aftercare 04/29 - Denies active SI today, but remains unable to contract for safety outside of the hospital setting - Last episode of SI occurred last evening while attempting to fall asleep 04/30 - Denies active SI today, but reports his mood as "empty" with limited motivation - Still requires meeting with parents to discuss safety planning after discharge 05/01 - Denies active SI, reporting more positive mood today 05/02 -The patient continues to report that he is having no thoughts of suicide at this point. He says that for him suicidal ideation occurs briefly and transiently, and his suicide attempts have been impulsive. -Within this context, the patient had notes that he and his mother have discussed a plan to help him avoid impulsively overdosing on medications once he has returned to the family home. -Specifically, the patient has asked his mother to hold his psychiatric medications and dispense them in small quantities to him as prescribed. -We emphasized the importance of completing a safety plan in anticipation of discharge next week. The patient tells us that his plan to date includes letting his mother know if his suicidal thoughts have returned, particularly if he has the impulse to act on them. -I taught the patient several mindfulness strategies, and asked the patient to practice 1 of them during the encounter today. He notes that often his suicidality comes from "downward spirals" associated with ruminative thinking and negative self talk. 05/03 -Resumption of SI over the past 24 hours in the context of thinking about le aving school. Continue to process and work on healthy coping skills. (2) Depression: 04/28 - Fluoxetine reportedly titrated to 40mg within the last week, patient reports outpatient plan was to continue medication at this dosage, which seems appropriate - Will request records from [facility] in order to gather collateral information - Pt considering medical withdrawal from school - if returning home with parents, he will require outpatient services be arranged prior to discharge - Encourage participation in group and recreational programming - Encourage involvement in a family meeting to discuss aftercare and safety planning 04/29 - Continue current dosage of fluoxetine 40mg - Will attempt to arrange outpatient psychiatric follow-up appointments closer to [place], as patient currently desire to withdraw from school and return home with parents after discharge - Pt willing to involve parents in a family meeting to discuss discharge and safety planning 04/30 - Continue fluoxetine 40mg - Family meeting this afternoon with parents - Continue to encourage participation in group and recreational programming 05/01 - Continue fluoxetine 40mg - Continue attempts to set up aftercare, as patient has decided he is returning to [place] to be with his parents and not returning to [place] 05/02 -Patient reports that his mood is significantly better, and his affect is clearly much brighter. -He is tolerating fluoxetine 40 mg well. Side effects of fluoxetine were reviewed with the patient, and he notes that he is not having any of these. 05/03 -Continue SSRI and consider increase if mood not improving with psychotherapeutic interventions. (3) Drug overdose: 04/28 - Will hold hydroxyzine at this time, given overdose of diphenhydramine prior to admission - Will continue to assess physical symptoms to determine when restart would be appropriate - Pt states he has been given 1-week supplies of his fluoxetine by his outpatient psychiatrist, may be beneficial to continue to limit access to surplus of medication 04/29 - Reporting improvement in physical symptoms today - Consider restart of prn hydroxyzine availability tomorrow 04/30 - Home dose of hydroxyzine is now available, as patient denies continued physical symptoms related to diphenhydramine overdose (4) Asthma: 04/28 - Continue prn use of inhaler 04/30 - Required use of his rescue inhaler last evening, prior to panic attack (5) Polysubstance abuse: 04/29 - Pt reports treatment goal of eliminating substance use; recognizing his tendency to abuse alcohol and cannabis when he is depressed or anxious. He self-reports thoughts to utilize additional substance such as "acid and Nanette" - but wants to avoid this. - Pt is agreeable with attempts to pursue a dual diagnosis therapist -Brief intervention was offered and accepted Intervention was greater than 5 min in length. Brief interventions include: 1. Assess Readiness to Quit, 2. Advise: Help Patient to Reduce or Abstain from Alcohol, 3. Agree: Set Specific, Feasible Goals, 4. Assist: Anticipate barriers, Problem-Solving Solutions. Social work to 5. Arrange: Referrals to appropriate treatment. Summary of intervention: The patient is in contemplation stage with regards to transtheoretical model of change. The patient is advised to decrease alcohol consumption due to depressant effects and risk of interactions with prescription medications. The patient was advised of recommendations for abstinence from alcohol and other abusable substances and to attend substance abuse treatment at discharge, and will be provided with recovery materials to continue to education self on how to cope with their condition without drinking. 05/02 -The patient has been receiving substance abuse focused counseling in the hospital, and today was reminded that the abuse of mood altering chemical substances can, in fact, cause or substantially contributed to alterations in mood, including depression. -The plan remains for the patient to seek dual diagnosis outpatient treatment following discharge. -He notes that he believes his parents will serve as sober supports. 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 Pt was admitted voluntarily on 04/27/19 for presenting to the ED having intentionally ingested #24 - 25mg diphenhydramine tablets around 2300 on 04/26/19 in a reported suicide attempt. Chief Complaint " Great". Review of Systems Sleep Information Total Hours of Sleep: 7.75 Sleep Comments: panic attack at the end of 07/28 shift-calmed after staff assistance-able to fall to sleep on 0100 rounds. Meal Information Percent Meal Consumed - Breakfast: 100 Percent Meal Consumed - Lunch: 100 Percent Meal Consumed - Dinner: 100 Nutrition Comment: per meal record Subjective Subjective Patient was seen & assessed and interval progress reviewed with nursing and social work. Staff report social work has been exploring options for outpatient treatment in his hometown which has been a challenge. My assessment, he was seen in his room, where he returned to bed midmorning. He initially states that his mood was "great," and that treatment has been more helpful this time as "I actually dealt with things." He then begins crying and states that his mood was improving, but has been worsening since last night. He says he has been thinking about his decision to leave school, which reminds him of when he was kicked out of high school. He says that this was both the best and the worst thing that ever happened to him. He is thinking about missing his friends and missing out on things at college. His suicidal thoughts have returned and he cannot contract for safety outside of the hospital, but does feel safe here, stating "there is no way to do anything here." Physical Exam Psychiatric Orientation: alert and cooperative Apperance: appropriately dressed and appropriately groomed Lying in bed, initially pulled streeter of sweatshirt over his face, but later removed it and made eye contact. Eye Contact: + fair eye contact Motor Behavior: no abnormal motor movements Affect: + depressed affect and + tearful affect; + mood not congruent with affect "Great." Later states mood is worsening. Thought Process: goal directed thought process Thought Content: + hopelessness and + loneliness Suicidal Thoughts: + reports suicidal thoughts Homicidal Thoughts: denies homicidal thoughts Hallucinations: no auditory hallucinations Cognition: recent memory grossly intact and attention grossly intact Insight: + fair insight Judgement: + fair judgement Vital Signs (Past 24 Hours) Last Vital Signs Temp 36.4 C L 05/03/19 06:33 Pulse 80 05/03/19 06:33 Resp 16 05/03/19 06:33 BP 115/77 05/03/19 06:33 Pulse Ox 98 04/27/19 17:47 Results & Data Current Inpatient Medications Current Inpatient Medications: Current Inpatient Medications Acetaminophen (Tylenol) 650 mg PO Q4H PRN PRN Reason: Headache or Minor Fever Stop: 05/27/19 17:32 Al Hydrox/Mg Hydrox/Simethicone (Maalox) 30 ml PO Q4H PRN PRN Reason: GI Upset Stop: 05/27/19 17:32 Albuterol (Ventolin Hfa) 2 puffs INH Q4H PRN PRN Reason: asthma Stop: 05/27/19 17:38 Last Admin: 04/29/19 23:15 Dose: 2 puffs Documented by: Bismuth Subsalicylate (Kaopectate) 15 ml PO PRN PRN PRN Reason: Loose Stool Stop: 05/27/19 17:32 Fluoxetine HCl (Prozac) 40 mg PO QAM RAMEZ Stop: 05/28/19 08:59 Last Admin: 05/02/19 08:23 Dose: 40 mg Documented by: Hydroxyzine HCl (Vistaril) 25 mg PO Q4H PRN PRN Reason: Anxiety Stop: 05/30/19 08:36 Last Admin: 05/02/19 17:07 Dose: 25 mg Documented by: Hydroxyzine HCl (Vistaril) 50 mg PO HS PRN PRN Reason: Insomnia Stop: 05/30/19 10:09 Last Admin: 04/30/19 22:35 Dose: 50 mg Documented by: Magnesium Hydroxide (Milk Of Magnesia) 30 ml PO DAILY PRN PRN Reason: Constipation Stop: 05/27/19 17:32 Ondansetron HCl (Zofran Odt) 4 mg PO Q6H PRN PRN Reason: Nausea Stop: 05/28/19 10:34 Last Admin: 04/28/19 11:20 Dose: 4 mg Documented by: Sodium Chloride (Wisdom Nasal) 1 - 2 sprays NA PRN PRN PRN Reason: Nasal Dryness/Congestion Stop: 05/27/19 17:32 Mental Health & Subst Abuse Tx Therapist Name of Therapist: Lolis BONILLA Therapy Date of Therapist Appointment: 05/07/19 Time of Therapist Appointment: 2pm Therapy Appointment Comment: [address] [facility] Skimmer Name of Zinc Skimmer: [employer] - Pat Phone Number for Zinc Skimmer: [phone] Case Management Appointment Comment: [facility] Post Discharge Appointments Primary Care Physician Name Of Family Doctor: [facility], Pediatrics - Dr. Shad Henao MD Primary Care Time of Appointment with PCP: Please follow up as needed Provider Appointment Comment: [address] [place] [id number] Contact Information Discharge Discharge [address]: [address] [place] [phone] (1) Depression Depression Type: unspecified Qualified Code(s): F32.9 - Major depressive disorder, single episode, unspecified (2) Drug overdose Encounter type: initial encounter Injury intent: intentional self-harm Qualified Code(s): T50.902A - Poisoning by unspecified drugs, medicaments and biological substances, intentional self-harm, initial encounter (3) Asthma Asthma complication type: unspecified Asthma persistence: unspecified Asthma severity: unspecified severity Qualified Code(s): J45.909 - Unspecified asthma, uncomplicated
[2019-05-03] MEDS: FLUOXETINE HCL 20 MG CAP PO SCH (08:57)
[2019-05-04] MEDS: FLUOXETINE HCL 20 MG CAP PO SCH (09:05)
--- NOTE | 2019-05-04 10:02 | Psychiatric Progress Note ---
Date of Service May 04, 2019 Impression / Recommendations Impression 19-year-old male admitted voluntarily for inpatient psychiatric treatment on 04/27/2019 after presenting to the ED status post diphenhydramine overdose. He reported taking #24 tablets of 25mg diphenhydramine in an attempt to end his life. When patient awoke after his attempt, he reported feeling "disgusted" with himself, called his mother who then called 911. Patient was admitted to our unit from 03/10/19 03/17/19 for depression and suicidal thoughts. He is improving and we are working on aftercare in his hometown as he is planning to withdraw from school and move home. He had been improving, but reports worsening mood over weekend with recurrence of suicidal ideation. Inpatient treatment remains medically necessary due to the severity of symptoms and risk for suicide if discharged. (1) Suicidal ideation: 04/28 - Admitted to a locked inpatient behavioral health unit, on q15 minute safety checks - Encourage medication initiation/adjustments as indicated - Encourage participation in group and recreational therapies - Gather collateral information from outpatient providers - Suggest family meeting to involve outpatient supports in safety planning - Arrange appropriate aftercare 04/29 - Denies active SI today, but remains unable to contract for safety outside of the hospital setting - Last episode of SI occurred last evening while attempting to fall asleep 04/30 - Denies active SI today, but reports his mood as "empty" with limited motivation - Still requires meeting with parents to discuss safety planning after discharge 05/01 - Denies active SI, reporting more positive mood today 05/02 -The patient continues to report that he is having no thoughts of suicide at this point. He says that for him suicidal ideation occurs briefly and transiently, and his suicide attempts have been impulsive. -Within this context, the patient had notes that he and his mother have discussed a plan to help him avoid impulsively overdosing on medications once he has returned to the family home. -Specifically, the patient has asked his mother to hold his psychiatric medications and dispense them in small quantities to him as prescribed. -We emphasized the importance of completing a safety plan in anticipation of discharge next week. The patient tells us that his plan to date includes letting his mother know if his suicidal thoughts have returned, particularly if he has the impulse to act on them. -I taught the patient several mindfulness strategies, and asked the patient to practice 1 of them during the encounter today. He notes that often his suicidality comes from "downward spirals" associated with ruminative thinking and negative self talk. 05/03 -Resumption of SI over the past 24 hours in the context of thinking about leaving school. Continue to process and work on healthy coping skills. 05/04 - Denies SI since yesterday afternoon, but reports concern about recent recurrence - Feels he may benefit from additional therapeutic intervention (2) Depression: 04/28 - Fluoxetine reportedly titrated to 40mg within the last week, patient reports outpatient plan was to continue medication at this dosage, which seems appropriate - Will request records from [facility] in order to gather collateral information - Pt considering medical withdrawal from school - if returning home with parents, he will require outpatient services be arranged prior to discharge - Encourage participation in group and recreational programming - Encourage involvement in a family meeting to discuss aftercare and safety planning 04/29 - Continue current dosage of fluoxetine 40mg - Will attempt to arrange outpatient psychiatric follow-up appointments closer to [place], as patient currently desire to withdraw from school and return home with parents after discharge - Pt willing to involve parents in a family meeting to discuss discharge and safety planning 04/30 - Continue fluoxetine 40mg - Family meeting this afternoon with parents - Continue to encourage participation in group and recreational programming 05/01 - Continue fluoxetine 40mg - Continue attempts to set up aftercare, as patient has decided he is returning to [place] to be with his parents and not returning to [facility] 05/02 -Patient reports that his mood is significantly better, and his affect is clearly much brighter. -He is tolerating fluoxetine 40 mg well. Side effects of fluoxetine were reviewed with the patient, and he notes that he is not having any of these. 05/03 -Continue SSRI and consider increase if mood not improving with psychotherapeutic interventions. 05/04 - Continue fluoxetine 40mg; patient reporting improvement in mood after a reportedly "rough weekend" - Continue to engage and group and recreational programming - Aftercare planning (3) Drug overdose: 04/28 - Will hold hydroxyzine at this time, given overdose of diphenhydramine prior to admission - Will continue to assess physical symptoms to determine when restart would be appropriate - Pt states he has been given 1-week supplies of his fluoxetine by his outpatient psychiatrist, may be beneficial to continue to limit access to surplus of medication 04/29 - Reporting improvement in physical symptoms today - Consider restart of prn hydroxyzine availability tomorrow 04/30 - Home dose of hydroxyzine is now available, as patient denies continued physical symptoms related to diphenhydramine overdose (4) Asthma: 04/28 - Continue prn use of inhaler 04/30 - Required use of his rescue inhaler last evening, prior to panic attack (5) Polysubstance abuse: 04/29 - Pt reports treatment goal of eliminating substance use; recognizing his tendency to abuse alcohol and cannabis when he is depressed or anxious. He self-reports thoughts to utilize additional substance such as "acid and Nanette" - but wants to avoid this. - Pt is agreeable with attempts to pursue a dual diagnosis therapist -Brief intervention was offered and accepted Intervention was greater than 5 min in length. Brief interventions include: 1. Assess Readiness to Quit, 2. Advise: Help Patient to Reduce or Abstain from Alcohol, 3. Agree: Set Specific, Feasible Goals, 4. Assist: Anticipate barriers, Problem-Solving Solutions. Social work to 5. Arrange: Referrals to appropriate treatment. Summary of intervention: The patient is in contemplation stage with regards to transtheoretical model of change. The patient is advised to decrease alcohol consumption due to depressant effects and risk of interactions with prescription medications. The patient was advised of recommendations for abstinence from alcohol and other abusable substances and to attend substance abuse treatment at discharge, and will be provided with recovery materials to continue to education self on how to cope with their condition without drinking. 05/02 -The patient has been receiving substance abuse focused counseling in the hospital, and today was reminded that the abuse of mood altering chemical s ubstances can, in fact, cause or substantially contributed to alterations in mood, including depression. -The plan remains for the patient to seek dual diagnosis outpatient treatment following discharge. -He notes that he believes his parents will serve as sober supports. 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 Pt was admitted voluntarily on 04/27/19 for presenting to the ED having intentionally ingested #24 - 25mg diphenhydramine tablets around 2300 on 04/26/19 in a reported suicide attempt. Chief Complaint "The weekend was pretty rough, I got back into a pretty negative headspace for a bit." Review of Systems Notes Constitutional: reports feeling heart racing this morning, felt different than usual anxiety symptoms Cardiovascular: denied Respiratory: denied Gastrointestinal: denied Neurological: denied Psychiatric: denies symptoms other than stated above Total of at least 10 systems reviewed, pertinent positives as above and in HPI. Sleep Information Total Hours of Sleep: 7.5 Meal Information Percent Meal Consumed - Breakfast: 0 Percent Meal Consumed - Lunch: 0 Percent Meal Consumed - Dinner: 100 Nutrition Comment: per meal record Subjective Subjective Patient was seen & assessed and interval progress reviewed with treatment team. Staff report the patient had a "difficult day" yesterday, reporting suicidality and urges to utilize substances. Patient had reportedly stated his symptoms were nearly as bad as when he initially presented for hospitalization. Patient was seen today to assess progress since admission. When asked how the weekend went, the patient states "it was pretty rough." Patient states that he was in a "negative head space" for most of the weekend, and admitted to recurrence of suicidal ideation. Patient believes this may have been related to having to come to terms with leaving school, and feeling as though "it reminds me of what I left my high school, leaving school, leaving friends." The patient states he was able to process these thoughts and feelings with his parents, who remains supportive. Patient denies suicidal ideation today, but admits to episodes as recently as yesterday. Patient states "I know we talked about me leaving in the next day or so, but I feel like I need longer." We reviewed that he still does not have scheduled aftercare appointments, which is also a concern for him. Patient continues to tolerate his current medication regimen, he does admit feeling "jumpy" this morning and questions if this is related to the fluoxetine. Patient describes this feeling as "my heart was pounding, I felt a little bit restless." Patient states that this is a new occurrence this morning, and that it feels different than "my usual anxiety." Patient denies other specific needs or concerns today. Physical Exam Psychiatric Orientation: alert, oriented x 3 and cooperative (and pleasant ) Apperance: appropriately dressed, appropriately groomed and appeared stated age Eye Contact: good eye contact Motor Behavior: steady gait and station and no abnormal motor movements Speech: normal rate/rhythm/volume of speech (soft tone ) Affect: + blunted affect and mood congruent with affect Mood: + depressed mood (mild improvement in mood, reportedly "rough" weekend) Thought Process: goal directed thought process, clear/coherent thought process and thought association intact Thought Content: reality based without delusions; no hopelessness Suicidal Thoughts: denies suicidal thoughts (presently, most recent SI reported yesterday afternoon/evening) and denies suicidal intent Homicidal Thoughts: denies homicidal thoughts Hallucinations: no auditory hallucinations and no visual hallucinations Cognition: attention grossly intact and language grossly intact Insight: good insight Judgement: good judgement Vital Signs (Past 24 Hours) Last Vital Signs Temp 36.5 C 05/04/19 06:32 Pulse 91 H 05/04/19 06:32 Resp 18 05/04/19 06:32 BP 109/69 05/04/19 06:32 Pulse Ox 98 04/27/19 17:47 Results & Data Current Inpatient Medications Current Inpatient Medications: Current Inpatient Medications Acetaminophen (Tylenol) 650 mg PO Q4H PRN PRN Reason: Headache or Minor Fever Stop: 05/27/19 17:32 Al Hydrox/Mg Hydrox/Simethicone (Maalox) 30 ml PO Q4H PRN PRN Reason: GI Upset Stop: 05/27/19 17:32 Albuterol (Ventolin Hfa) 2 puffs INH Q4H PRN PRN Reason: asthma Stop: 05/27/19 17:38 Last Admin: 04/29/19 23:15 Dose: 2 puffs Documented by: Bismuth Subsalicylate (Kaopectate) 15 ml PO PRN PRN PRN Reason: Loose Stool Stop: 05/27/19 17:32 Fluoxetine HCl (Prozac) 40 mg PO QAM RAMEZ Stop: 05/28/19 08:59 Last Admin: 05/04/19 09:05 Dose: 40 mg Documented by: Hydroxyzine HCl (Vistaril) 25 mg PO Q4H PRN PRN Reason: Anxiety Stop: 05/30/19 08:36 Last Admin: 05/03/19 08:57 Dose: 25 mg Documented by: Hydroxyzine HCl (Vistaril) 50 mg PO HS PRN PRN Reason: Insomnia Stop: 05/30/19 10:09 Last Admin: 04/30/19 22:35 Dose: 50 mg Documented by: Magnesium Hydroxide (Milk Of Magnesia) 30 ml PO DAILY PRN PRN Reason: Constipation Stop: 05/27/19 17:32 Ondansetron HCl (Zofran Odt) 4 mg PO Q6H PRN PRN Reason: Nausea Stop: 05/28/19 10:34 Last Admin: 04/28/19 11:20 Dose: 4 mg Documented by: Sodium Chloride (Garrard Nasal) 1 - 2 sprays NA PRN PRN PRN Reason: Nasal Dryness/Congestion Stop: 05/27/19 17:32 Mental Health & Subst Abuse Tx Therapist Name of Therapist: Lolis BONILLA Therapy Date of Therapist Appointment: 05/07/19 Time of Therapist Appointment: 2pm Therapy Appointment Comment: [phone] [facility] Supervisor Lump Room Name of Supervisor Lump Room: [facility] - [facility] Phone Number for Supervisor Lump Room: [phone] Case Management Appointment Comment: [address] [facility] Post Discharge Appointments Primary Care Physician Name Of Family Doctor: [facility] - Dr. Shad Henao MD Primary Care Time of Appointment with PCP: Please follow up as needed Provider Appointment Comment: [address] [place] [id number] Contact Information Discharge Discharge [address]: [address] [place] [id number] (1) Depression Depression Type: unspecified Qualified Code(s): F32.9 - Major depressive disorder, single episode, unspecified (2) Drug overdose Encounter type: initial encounter Injury intent: intentional self-harm Qualified Code(s): T50.902A - Poisoning by unspecified drugs, medicaments and biological substances, intentional self-harm, initial encounter (3) Asthma Asthma complication type: unspecified Asthma persistence: unspecified Asthma severity: unspecified severity Qualified Code(s): J45.909 - Unspecified asthma, uncomplicated
[2019-05-05] MEDS: FLUOXETINE HCL 20 MG CAP PO SCH (08:40)
--- NOTE | 2019-05-05 10:58 | Psychiatric Progress Note ---
Date of Service May 05, 2019 Impression / Recommendations Impression 19-year-old male admitted voluntarily for inpatient psychiatric treatment on 04/27/2019 after presenting to the ED status post diphenhydramine overdose. He reported taking #24 tablets of 25mg diphenhydramine in an attempt to end his life. When patient awoke after his attempt, he reported feeling "disgusted" with himself, called his mother who then called 911. Patient was admitted to our unit from 03/10/19 03/17/19 for depression and suicidal thoughts. He is improving and we are working on aftercare in [place] hometown as he is planning to withdraw from school and move home. He had been improving, but reports worsening mood over weekend with recurrence of suicidal ideation. Has denied SI for the past ~2 days, reporting more consistent improvement in mood and considering readiness for discharge as early as tomorrow. Inpatient treatment remains medically necessary due to the severity of symptoms and risk for suicide if discharged. Aftercare appointments were offered to the patient, but family declined the specific appointments due to difficulty with transportation to the specific locations. Alternative aftercare options have been pursued, with attempts to ensure patient is seen by a medical provider within a timely manner after discharge. (1) Suicidal ideation: 04/28 - Admitted to a locked inpatient behavioral health unit, on q15 minute safety checks - Encourage medication initiation/adjustments as indicated - Encourage participation in group and recreational therapies - Gather collateral information from outpatient providers - Suggest family meeting to involve outpatient supports in safety planning - Arrange appropriate aftercare 04/29 - Denies active SI today, but remains unable to contract for safety outside of the hospital setting - Last episode of SI occurred last evening while attempting to fall asleep 04/30 - Denies active SI today, but reports his mood as "empty" with limited motivation - Still requires meeting with parents to discuss safety planning after discharge 05/01 - Denies active SI, reporting more positive mood today 05/02 -The patient continues to report that he is having no thoughts of suicide at this point. He says that for him suicidal ideation occurs briefly and transiently, and his suicide attempts have been impulsive. -Within this context, the patient had notes that he and his mother have discussed a plan to help him avoid impulsively overdosing on medications once he has returned to the family home. -Specifically, the patient has asked his mother to hold his psychiatric medi cations and dispense them in small quantities to him as prescribed. -We emphasized the importance of completing a safety plan in anticipation of discharge next week. The patient tells us that his plan to date includes letting his mother know if his suicidal thoughts have returned, particularly if he has the impulse to act on them. -I taught the patient several mindfulness strategies, and asked the patient to practice 1 of them during the encounter today. He notes that often his suicidality comes from "downward spirals" associated with ruminative thinking and negative self talk. 05/03 -Resumption of SI over the past 24 hours in the context of thinking about leaving school. Continue to process and work on healthy coping skills. 05/04 - Denies SI since yesterday afternoon, but reports concern about recent recurrence - Feels he may benefit from additional therapeutic intervention 05/05 - Denies SI since the weekend - Pt reports he is approaching readiness for discharge if mood remains consistent (2) Depression: 04/28 - Fluoxetine reportedly titrated to 40mg within the last week, patient reports outpatient plan was to continue medication at this dosage, which seems appropriate - Will request records from [facility] in order to gather collateral information - Pt considering medical withdrawal from school - if returning home with [employer], he will require outpatient services be arranged prior to discharge - Encourage participation in group and recreational programming - Encourage involvement in a family meeting to discuss aftercare and safety planning 04/29 - Continue current dosage of fluoxetine 40mg - Will attempt to arrange outpatient psychiatric follow-up appointments closer to [place], as patient currently desire to withdraw from school and return home with parents after discharge - Pt willing to involve parents in a family meeting to discuss discharge and safety planning 04/30 - Continue fluoxetine 40mg - Family meeting this afternoon with parents - Continue to encourage participation in group and recreational programming 05/01 - Continue fluoxetine 40mg - Continue attempts to set up aftercare, as patient has decided he is returning to [place] to be with his parents and not returning to [employer] 05/02 -Patient reports that his mood is significantly better, and his affect is clearly much brighter. -He is tolerating fluoxetine 40 mg well. Side effects of fluoxetine were reviewed with the patient, and he notes that he is not having any of these. 05/03 -Continue SSRI and consider increase if mood not improving with psychotherapeutic interventions. 05/04 - Continue fluoxetine 40mg; patient reporting improvement in mood after a reportedly "rough weekend" - Continue to engage and group and recreational programming - Aftercare planning 05/05 - Reports continued improvement in mood - Continue work on solidifying aftercare plan - Ongoing participation in group programming (3) Drug overdose: 04/28 - Will hold hydroxyzine at this time, given overdose of diphenhydramine prior to admission - Will continue to assess physical symptoms to determine when restart would be appropriate - Pt states he has been given 1-week supplies of his fluoxetine by his outpatient psychiatrist, may be beneficial to continue to limit access to s urplus of medication 04/29 - Reporting improvement in physical symptoms today - Consider restart of prn hydroxyzine availability tomorrow 04/30 - Home dose of hydroxyzine is now available, as patient denies continued physical symptoms related to diphenhydramine overdose (4) Asthma: 04/28 - Continue prn use of inhaler 04/30 - Required use of his rescue inhaler last evening, prior to panic attack (5) Polysubstance abuse: 04/29 - Pt reports treatment goal of eliminating substance use; recognizing his tendency to abuse alcohol and cannabis when he is depressed or anxious. He self-reports thoughts to utilize additional substance such as "acid and Nanette" - but wants to avoid this. - Pt is agreeable with attempts to pursue a dual diagnosis therapist -Brief intervention was offered and accepted Intervention was greater than 5 min in length. Brief interventions include: 1. Assess Readiness to Quit, 2. Advise: Help Patient to Reduce or Abstain from Alcohol, 3. Agree: Set Specific, Feasible Goals, 4. Assist: Anticipate barriers, Problem-Solving Solutions. Social work to 5. Arrange: Referrals to appropriate treatment. Summary of intervention: The patient is in contemplation stage with regards to transtheoretical model of change. The patient is advised to decrease alcohol consumption due to depressant effects and risk of interactions with prescription medications. The patient was advised of recommendations for abstinence from alcohol and other abusable substances and to attend substance abuse treatment at discharge, and will be provided with recovery materials to continue to education self on how to cope with their condition without drinking. 05/02 -The patient has been receiving substance abuse focused counseling in the hospital, and today was reminded that the abuse of mood altering chemical substances can, in fact, cause or substantially contributed to alterations in mood, including depression. -The plan remains for the patient to seek dual diagnosis outpatient treatment following discharge. -He notes that he believes his parents will serve as sober supports. 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 Pt was admitted voluntarily on 04/27/19 for presenting to the ED having intentionally ingested #24 - 25mg diphenhydramine tablets around 2300 on 04/26/19 in a reported suicide attempt. Chief Complaint "Good. I think I'm doing a lot better today." Review of Systems Notes Constitutional: denied Cardiovascular: denied Respiratory: denied Gastrointestinal: denied Neurological: denied Psychiatric: denies symptoms other than stated above Total of at least 10 systems reviewed, pertinent positives as above and in HPI. Sleep Information Total Hours of Sleep: 8.25 Meal Information Percent Meal Consumed - Breakfast: 100 Percent Meal Consumed - Lunch: 100 Percent Meal Consumed - Dinner: 100 Nutrition Comment: per meal record Subjective Subjective Patient was seen & assessed and interval progress reviewed with nursing and social work. Staff reports the patient has been demonstrating continued improvement in mood. He did admit to concerns about aftercare arrangements. Last evening the patient rated his mood a 7.5/10, stating he was "overwhelmed [about aftercare], but confident." Patient was seen today to assess progress since admission. He reports that today he is feeling "good." Patient does admit that he has been thinking a bit more frequently about his ex-boyfriend. He states that these thoughts are often about "how much I hate him", but patient is able to recognize "but that takes too much emotional energy." The patient denies continued suicidal ideation, and states he has been speaking with his parents regularly. Patient has been engaged in conversation with social workers to solidify aftercare plans. Patient is interested in attending group therapy, which he feels will be helpful to initiate a support network. Patient states he does have a therapy appointment scheduled for later this week, and is hopeful to find a psychiatric provider as well. Patient states the wait lists reported have been frustrating, but he feels comfortable with following up with his PCP should this be required. Patient denies specific needs or concerns today, and feels as though he may be ready for discharge tomorrow. Physical Exam Psychiatric Orientation: alert, oriented x 3 and cooperative (And pleasant) Apperance: appropriately dressed, appropriately groomed and appeared stated age Eye Contact: good eye contact Motor Behavior: steady gait and station and no abnormal motor movements Speech: normal rate/rhythm/volume of speech Affect: euthymic affect (Appearing brighter, smiling appropriately and often) Mood: no depressed mood ("I feel good") Thought Process: goal directed thought process, linear/logical thought process, clear/coherent thought process and thought association intact Thought Content: reality based without delusions; no hopelessness and no worthlessness Suicidal Thoughts: denies suicidal thoughts and denies suicidal intent Homicidal Thoughts: denies homicidal thoughts Hallucinations: no auditory hallucinations and no visual hallucinations Cognition: attention grossly intact and language grossly intact Insight: good insight Judgement: good judgement Vital Signs (Past 24 Hours) Last Vital Signs Temp 36.4 C L 05/05/19 06:27 Pulse 88 05/05/19 06:28 Resp 18 05/05/19 06:27 BP 110/72 05/05/19 06:28 Pulse Ox 98 04/27/19 17:47 Results & Data Current Inpatient Medications Current Inpatient Medications: Current Inpatient Medications Acetaminophen (Tylenol) 650 mg PO Q4H PRN PRN Reason: Headache or Minor Fever Stop: 05/27/19 17:32 Al Hydrox/Mg Hydrox/Simethicone (Maalox) 30 ml PO Q4H PRN PRN Reason: GI Upset Stop: 05/27/19 17:32 Albuterol (Ventolin Hfa) 2 puffs INH Q4H PRN PRN Reason: asthma Stop: 05/27/19 17:38 Last Admin: 04/29/19 23:15 Dose: 2 puffs Documented by: Bismuth Subsalicylate (Kaopectate) 15 ml PO PRN PRN PRN Reason: Loose Stool Stop: 05/27/19 17:32 Fluoxetine HCl (Prozac) 40 mg PO QAM RAMEZ Stop: 05/28/19 08:59 Last Admin: 05/05/19 08:40 Dose: 40 mg Documented by: Hydroxyzine HCl (Vistaril) 25 mg PO Q4H PRN PRN Reason: Anxiety Stop: 05/30/19 08:36 Last Admin: 05/03/19 08:57 Dose: 25 mg Documented by: Hydroxyzine HCl (Vistaril) 50 mg PO HS PRN PRN Reason: Insomnia Stop: 05/30/19 10:09 Last Admin: 04/30/19 22:35 Dose: 50 mg Documented by: Magnesium Hydroxide (Milk Of Magnesia) 30 ml PO DAILY PRN PRN Reason: Constipation Stop: 05/27/19 17:32 Ondansetron HCl (Zofran Odt) 4 mg PO Q6H PRN PRN Reason: Nausea Stop: 05/28/19 10:34 Last Admin: 04/28/19 11:20 Dose: 4 mg Documented by: Sodium Chloride ([place] Nasal) 1 - 2 sprays NA PRN PRN PRN Reason: Nasal Dryness/Congestion Stop: 05/27/19 17:32 Mental Health & Subst Abuse Tx Therapist Name of Therapist: Lolis BONILLA Therapy Date of Therapist Appointment: 05/11/19 Time of Therapist Appointment: 4pm Therapy Appointment Comment: [address] [facility] Rate Reviewer Name of Rate Reviewer: [facility] Phone Number for Rate Reviewer: [phone] Case Management Appointment Comment: [address] [facility] Post Discharge Appointments Primary Care Physician Name Of Family Doctor: [facility], Pediatrics - Dr. Shad Henao MD Primary Care Time of Appointment with PCP: Please follow up as needed Provider Appointment Comment: [address] [place] [id number] Contact Information Discharge Discharge [address]: [address] [place] [phone] (1) Depression Depression Type: unspecified Qualified Code(s): F32.9 - Major depressive disorder, single episode, unspecified (2) Drug overdose Encounter type: initial encounter Injury intent: intentional self-harm Qualified Code(s): T50.902A - Poisoning by unspecified drugs, medicaments and biological substances, intentional self-harm, initial encounter (3) Asthma Asthma complication type: unspecified Asthma persistence: unspecified Asthma severity: unspecified severity Qualified Code(s): J45.909 - Unspecified asthma, uncomplicated
[2019-05-06] MEDS: FLUOXETINE HCL 20 MG CAP PO SCH (10:15)
--- NOTE | 2019-05-06 11:06 | Discharge Summary ---
Date of Service May 06, 2019 History of Present Illness Glen Villagomez is a 19-year-old male admitted voluntarily for inpatient psychiatric treatment on 04/27/2019. Patient reportedly presented to the ED after intentional diphenhydramine overdose. Patient states he intentionally consumed #24 - 25mg tablets of diphenhydramine the evening of 04/26/19, having spent time looking up consequences of various doses of the medication prior to the ingestion. Patient reportedly slept after the overdose, and when he awoke called his mother for help. It is stated the patient's mother called police, and patient was brought to the ED on a 302 warrant. Patient ultimately signed in voluntarily, desiring inpatient psychiatric admission. He is known to our unit from a prior psychiatric admission from 03/10/2019 through 03/17/2019. At that time he was reporting worsening depression and suicidal ideation with m candido plans, though denied active furtherance at that time. Patient is cooperative with psychiatric evaluation. He informs this provider that he attended 1 day of classes after his discharge from the hospital and "could not go back." Patient states that he found the classes overwhelming, and was embarrassed by the questions he was getting regarding his absence. Patient states that he stopped attending classes, but would continue to spend time with his friends and participating in clubs. Patient states he spent most of his time in his dorm room, but would "leave at least once a day, usually in the evenings." Patient states that since his discharge, his mood has been "all over the place, I have really good days and really bad days." He does admit that the majority of his days have been "really bad." Patient states that his mornings and evenings are generally more difficult, as "those of the times and most likely to be alone." Patient states that the suicidal ideation remained rather prevalent, and states "I have thoughts about doing that before, but I would always use weed and alcohol and feel better. I just ran out of weed and alcohol." Patient states that when he was unable to numb his emotions with these as other substances, he directed his energy toward utilizing medications. Patient states "I was looking it up a lot, trying to figure out what dose to take." Patient states that his research informed him that 1000 mg of diphenhydramine would cause him to , but "500 mg would probably just make you feel weird. So I decided on 600 mg." Patient is somewhat ambivalent about the intention of his overdose, not clearly stating it was an attempt to end his life but also not denying this. The likely reason the patient gave for that dose was "it was half of the package." Patient states he initially took only 300 mg at first," then decided to take more." The patient states he awoke the next morning, and felt "disgusting, to face what I did." Patient continues to report academic stressors, and stated during his last admission that there were a number of friendships/relationship stressors as well. Patient states his plan at this time is to withdrawal from the semester, and take some time off. He is interested in returning home with his parents, and pursuing outpatient psychiatric treatment in that area. Since patient's admission, his dose of fl uoxetine has been titrated to 40 mg daily. He is continue to follow-up with outpatient therapy through [facility]. Patient does admit to changes in his eating pattern, stating "I want to lose weight." He states that he engages and overeating of junk foods, but makes up for this behavior by "eating nothing the next day." Patient admits to continued suicidal ideation at this time, stating it has been "consistent" for the past several days. Pt denies HI, SIB, A/V hallucinations, paranoia, cesar/hypomania, other symptoms more suggestive of a bipolar presentation, OCD, PTSD, and other specific psychiatric symptoms. Physical Exam Psychiatric Orientation: alert, oriented x 3 and cooperative Apperance: appropriately dressed and appropriately groomed Long, silver fingernails Eye Contact: good eye contact Motor Behavior: steady gait and station and no abnormal motor movements Speech: normal rate/rhythm/volume of speech Affect: euthymic affect and mood congruent with affect "A lot better." Thought Process: goal directed thought process and linear/logical thought process Thought Content: reality based without delusions Suicidal Thoughts: denies suicidal thoughts Homicidal Thoughts: denies homicidal thoughts Hallucinations: no auditory hallucinations Cognition: recent memory grossly intact, attention grossly intact and language grossly intact Insight: good insight Judgement: good judgement Vital Signs (Past 24 Hours) Last Vital Signs Temp 36.4 C L 05/06/19 06:26 Pulse 101 H 05/06/19 06:26 Resp 18 05/06/19 06:26 BP 121/75 05/06/19 06:26 Pulse Ox 98 04/27/19 17:47 Principal Diagnosis Major depressive disorder, recurrent, severe, without psychosis Diphenhydramine overdose Alcohol and cannabis use disorders Psychiatric Data The patient was hospitalized for 9 days. On admission, he endorsed mild anticholinergic symptoms due to diphenhydramine overdose. He was continued on his home dose of fluoxetine, which had just been increased to 40 mg within the past week, and later in his stay as needed hydroxyzine was resumed, as he reported it had been helpful for sleep and anxiety. His parents came to visit him and were involved in his treatment. He processed his stressors and decided to withdraw from school and return home with family. He was placed on recovery protocol and worked on healthy coping skills to use in place of alcohol and marijuana. He was able to identify that he often uses substances as a way to numb emotions or manage his feelings. He had a family meeting with the social work lecturer and his parents on 04/30/2019; he was able to review events after his last hospitalization in February, stating that he quickly returned to his old habits, including drinking and smoking marijuana to numb himself. He and his parents discussed his substance use at length, and he opened up to them about his use in high school and escalated use in college. He was also able to talk about stressors, including his first boyfriend last semester and the interpersonal problems that led to worsening mood. He talked about his sexual and gender identity, and that he was not sure exactly how he identifies/feels. The need for outpatient care at home was also discussed, and social work assisted him to explore options in the [place] area. It was quite challenging to identify aftercare that was acceptable to the family and also had openings; multiple centers were identified that could see the patient, but the family/patient declined due to travel time/distance. His mother suggested a facility, but once the patient determined that it was phani-based, he declined. His current PCP, who is a visual design lead, was contacted but declined to see him due to age. He was ultimately scheduled with 2 different therapists, and referred for a new PCP for a bridge appointment. His mood improved gradually throughout his hospitalization, he was an active participant in groups and therapy, interacted appropriately with staff and peers, and took medications without difficulty. He reported resolution of suicidal thoughts, and hopefulness for the future. Day of Discharge Assessment The patient states his mood is "much better," denies suicidal thoughts, and is looking forward to returning home with his parents today. He denies any safety concerns, and is able to review his discharge safety plan. He denies any side effects to medications. He would like his parents to hold his pill bottles and dispense the medications to him, and plans to talk to them about this when they come to pick him up today. He would like them to be present while nursing staff review his discharge orders. He is able to review his discharge plan, including options for 2 different therapists, and feels comfortable with the options he has chosen. He is also been given information about other options for outpatient treatment in the [facility]. Transition of Care Transition Of Care Record: was reviewed with the patient Advance Directives Advance Directives Information Provided: Yes Advance Directives: No Mental Health Advance Directive: No Advance Directives on File: No Living Will: No Power of Identifier Horse: No Advance Directives Reason:: Declines as Mental Health Visit. Risk Factors Assessment Risk factors were medicated by admission to the inpatient unit, use of medications to target depressive symptoms, psychoeducation about his diagnoses and the recommended treatment, education about the risks of ongoing substance use and recommendations for abstinence, family meeting with parents, referring him for outpatient treatment in the [facility], assisting with medical withdrawal from school, participation in groups and therapy, working on healthy coping skills and a discharge safety plan. He has demonstrated improvement in mood, resolution of suicidal thoughts, and is completing ADLs independently. He and his parents deny safety concerns with discharge, and state willingness to follow-up with outpatient treatment. He is requesting discharge, and as he is no longer at acute risk of harm to himself, can be managed as an outpatient at this time. He is not at increased risk for harm to others. Male: Yes : No Do You Have Access To A Gun?: No Health Problems: No Mental Health Diagnoses: Yes Substance Use Disorders: Yes Previous Attempt: No Family History of Suicide: No Previous Psychiatric Hospitalization: Yes (03/10/19 -03/17/19) Hopelessness: Yes Smoker: Yes Protective Factors Assessment [facility] Beliefs: No : No Responsible for Young Children: No Employed: No Stable Relationships: No Supportive Family: No (patient does not identify family as a strong support) Tobacco Cessation at Discharge Tobacco Cessation Medication Prescribed at Discharge: Not Applicable/Non-Smoker Total Time Total Time Spent: Greater Than 30 Minutes Total Time Includes: Examination of the patient, Discharge Planning and Medication Reconciliation Discharge Data Lab Results 04/27/19 04/27/19 04/27/19 11: 11:01 11:01 WBC 6.61 RBC 4.84 Hgb 15.4 Hct 44.7 MCV 92.4 MCH 31.8 MCHC 34.5 RDW Std Deviation 43.5 RDW Coeff of Jeffery 12.9 Plt Count 227 MPV 9.9 Immature Gran % (Auto) 0.2 Neut % (Auto) 74.5 Lymph % (Auto) 12.7 Buchanan % (Auto) 6.1 Eos % (Auto) 5.9 Baso % (Auto) 0.6 Immature Gran # (Auto) 0.01 Neut # (Auto) 4.93 Lymph # (Auto) 0.84 L Buchanan # (Auto) 0.40 Eos # (Auto) 0.39 Baso # (Auto) 0.04 Sodium 138 Potassium 4.0 Chloride 105 Carbon Dioxide 27 Anion Gap 6.0 BUN 12 Creatinine 1.16 Est Cr Clr Drug Dosing 81.9 Est GFR ( Amer) 104.5 Est GFR (Non-Af Amer) 90.2 BUN/Creatinine Ratio 10.5 Glucose 84 Calcium 8.9 Magnesium 2.2 Total Bilirubin 0.9 AST 14 L ALT 25 Alkaline Phosphatase 92 Total Protein 7.5 Albumin 4.4 Globulin 3.1 Albumin/Globulin Ratio 1.4 TSH Urine Color Urine Appearance Urine pH Ur Specific [place] Urine Protein Urine Glucose (UA) Urine Ketones Urine Blood Urine Nitrite Urine Bilirubin Urine Urobilinogen Ur Leukocyte Esterase Salicylates < 1.7 L Urine Opiates Screen Ur Methadone, Qual Acetaminophen < 2 L Urine Barbiturates Ur Phencyclidine (PCP) U Amphetamin/Meth Scrn MDMA (Ecstasy) Screen U Benzodiazepines Scrn Ur Cocaine Metabolite U Marijuana (THC) Screen U Marijuana THC Carboxy Drug Screen Comment Ethyl Alcohol mg/dL 04/27/19 04/27/19 04/27/19 11:01 11:01 12:07 WBC RBC Hgb Hct MCV MCH MCHC RDW Std Deviation RDW Coeff of Jeffery Plt Count MPV Immature Gran % (Auto) Neut % (Auto) Lymph % (Auto) Buchanan % (Auto) Eos % (Auto) Baso % (Auto) Immature Gran # (Auto) Neut # (Auto) Lymph # (Auto) Buchanan # (Auto) Eos # (Auto) Baso # (Auto) Sodium Potassium Chloride Carbon Dioxide Anion Gap BUN Creatinine Est Cr Clr Drug Dosing Est GFR ( Amer) Est GFR (Non-Af Amer) BUN/Creatinine Ratio Glucose Calcium Magnesium Total Bilirubin AST ALT Alkaline Phosphatase Total Protein Albumin Globulin Albumin/Globulin Ratio TSH 1.610 Urine Color Urine Appearance Urine pH Ur Specific [place] Urine Protein Urine Glucose (UA) Urine Ketones Urine Blood Urine Nitrite Urine Bilirubin Urine Urobilinogen Ur Leukocyte Esterase Salicylates Urine Opiates Screen Neg Ur Methadone, Qual Neg Acetaminophen Urine Barbiturates Neg Ur Phencyclidine (PCP) Neg U Amphetamin/Meth Scrn Neg MDMA (Ecstasy) Screen Neg U Benzodiazepines Scrn Neg Ur Cocaine Metabolite Neg U Marijuana (THC) Screen Pos H U Marijuana THC Carboxy Drug Screen Comment Ethyl Alcohol mg/dL < 3.0 04/27/19 04/27/19 12:07 Unknown WBC RBC Hgb Hct MCV MCH MCHC RDW Std Deviation RDW Coeff of Jeffery Plt Count MPV Immature Gran % (Auto) Neut % (Auto) Lymph % (Auto) Buchanan % (Auto) Eos % (Auto) Baso % (Auto) Immature Gran # (Auto) Neut # (Auto) Lymph # (Auto) Buchanan # (Auto) Eos # (Auto) Baso # (Auto) Sodium Potassium Chloride Carbon Dioxide Anion Gap BUN Creatinine Est Cr Clr Drug Dosing Est GFR ( Amer) Est GFR (Non-Af Amer) BUN/Creatinine Ratio Glucose Calcium Magnesium Total Bilirubin AST ALT Alkaline Phosphatase Total Protein Albumin Globulin Albumin/Globulin Ratio TSH Urine Color Yellow Urine Appearance Clear Urine pH 6.5 Ur Specific [place] 1.016 Urine Protein Negative Urine Glucose (UA) Negative Urine Ketones Negative Urine Blood Negative Urine Nitrite Negative Urine Bilirubin Negative Urine Urobilinogen Negative Ur Leukocyte Esterase Negative Salicylates Urine Opiates Screen Ur Methadone, Qual Acetaminophen Urine Barbiturates Ur Phencyclidine (PCP) U Amphetamin/Meth Scrn MDMA (Ecstasy) Screen U Benzodiazepines Scrn Ur Cocaine Metabolite U Marijuana (THC) Screen U Marijuana THC Carboxy 171 H Drug Screen Comment SEE NOTE Ethyl Alcohol mg/dL Hospital Course (1) Suicidal ideation: 04/28 - Admitted to a locked inpatient behavioral health unit, on q15 minute safety checks - Encourage medication initiation/adjustments as indicated - Encourage participation in group and recreational therapies - Gather collateral information from outpatient providers - Suggest family meeting to involve outpatient supports in safety planning - Arrange appropriate aftercare 04/29 - Denies active SI today, but remains unable to contract for safety outside of the hospital setting - Last episode of SI occurred last evening while attempting to fall asleep 04/30 - Denies active SI today, but reports his mood as "empty" with limited motivation - Still requires meeting with parents to discuss safety planning after discharge 05/01 - Denies active SI, reporting more positive mood today 05/02 -The patient continues to report that he is having no thoughts of suicide at this point. He says that for him suicidal ideation occurs briefly and transiently, and his suicide attempts have been impulsive. -Within this context, the patient had notes that he and his mother have discussed a plan to help him avoid impulsively overdosing on medications once he has returned to the family home. -Specifically, the patient has asked his mother to hold his psychiatric medications and dispense them in small quantities to him as prescribed. -We emphasized the importance of completing a safety plan in anticipation of discharge next week. The patient tells us that his plan to date includes letting his mother know if his suicidal thoughts have returned, particularly if he has the impulse to act on them. -I taught the patient several mindfulness strategies, and asked the patient to practice 1 of them during the encounter today. He notes that often his suicidality comes from "downward spirals" associated with ruminative thinking and negative self talk. 05/03 -Resumption of SI over the past 24 hours in the context of thinking about leaving school. Continue to process and work on healthy coping skills. 05/04 - Denies SI since yesterday afternoon, but reports concern about recent recurrence - Feels he may benefit from additional therapeutic intervention 05/05 - Denies SI since the weekend - Pt reports he is approaching readiness for discharge if mood remains consistent (2) Depression: 04/28 - Fluoxetine reportedly titrated to 40mg within the last week, patient reports outpatient plan was to continue medication at this dosage, which seems appropriate - Will request records from [facility] in order to gather collateral information - Pt considering medical withdrawal from school - if returning home with parents, he will require outpatient services be arranged prior to discharge - Encourage participation in group and recreational programming - Encourage involvement in a family meeting to discuss aftercare and safety planning 04/29 - Continue current dosage of fluoxetine 40mg - Will attempt to arrange outpatient psychiatric follow-up appointments closer to [place], as patient currently desire to withdraw from school and return home with parents after discharge - Pt willing to involve parents in a family meeting to discuss discharge and safety planning 04/30 - Continue fluoxetine 40mg - Family meeting this afternoon with parents - Continue to encourage participation in group and recreational programming 05/01 - Continue fluoxetine 40mg - Continue attempts to set up aftercare, as patient has decided he is returning to [place] to be with his parents and not returning to [place] 05/02 -Patient reports that his mood is significantly better, and his affect is clearly much brighter. -He is tolerating fluoxetine 40 mg well. Side effects of fluoxetine were reviewed with the patient, and he notes that he is not having any of these. 05/03 -Continue SSRI and consider increase if mood not improving with psychotherapeutic interventions. 05/04 - Continue fluoxetine 40mg; patient reporting improvement in mood after a reportedly "rough weekend" - Continue to engage and group and recreational programming - Aftercare planning 05/05 - Reports continued improvement in mood - Continue work on solidifying aftercare plan - Ongoing participation in group programming 05/06 -Patient and mother worked with the social work lecturer today to establish aftercare. [facility] had an opening, but the patient and his family declined due to the commute time with morning traffic. The patient's mother suggested a program, but on further exploration, it was phani-based, and the patient declined that. He was referred for a new PCP for a bridge appointment 06/01/2019, and to 2 other facilities, including therapy intake 05/25/2019 at [facility], with an option to be scheduled with her psychiatrist after that appointment, and therapy at [facility] on 05/11/2019. He was also given information about the [facility], where groups and support services are available. (3) Drug overdose: 04/28 - Will hold hydroxyzine at this time, given overdose of diphenhydramine prior to admission - Will continue to assess physical symptoms to determine when restart would be appropriate - Pt states he has been given 1-week supplies of his fluoxetine by his outpatient psychiatrist, may be beneficial to continue to limit access to surplus of medication 04/29 - Reporting improvement in physical symptoms today - Consider restart of prn hydroxyzine availability tomorrow 04/30 - Home dose of hydroxyzine is now available, as patient denies continued physical symptoms related to diphenhydramine overdose (4) Asthma: 04/28 - Continue prn use of inhaler 04/30 - Required use of his rescue inhaler last evening, prior to panic attack (5) Polysubstance abuse: 04/29 - Pt reports treatment goal of eliminating substance use; recognizing his tendency to abuse alcohol and cannabis when he is depressed or anxious. He self-reports thoughts to utilize additional substance such as "acid and Nanette" - but wants to avoid this. - Pt is agreeable with attempts to pursue a dual diagnosis therapist -Brief intervention was offered and accepted Intervention was greater than 5 min in length. Brief interventions include: 1. Assess Readiness to Quit, 2. Advise: Help Patient to Reduce or Abstain from Alcohol, 3. Agree: Set Specific, Feasible Goals, 4. Assist: Anticipate barriers, Problem-Solving Solutions. Social work to 5. Arrange: Referrals to appropriate treatment. Summary of intervention: The patient is in contemplation stage with regards to transtheoretical model of change. The patient is advised to decrease alcohol consumption due to depressant effects and risk of interactions with prescription medications. The patient was advised of recommendations for abstinence from alcohol and other abusable substances and to attend substance abuse treatment at discharge, and will be provided with recovery materials to continue to education self on how to cope with their condition without drinking. 05/02 -The patient has been receiving substance abuse focused counseling in the hospital, and today was reminded that the abuse of mood altering chemical substances can, in fact, cause or substantially contributed to alterations in mood, including depression. -The plan remains for the patient to seek dual diagnosis outpatient treatment following discharge. -He notes that he believes his parents will serve as sober supports. Mental Health & Subst Abuse Tx Psychiatrist Name of Psychiatrist: Rosa M [facility] Psych[facility]rist's Date of Appointment with Psychiatrist: 05/25/19 Time of Appointment with Psychiatrist: 1pm Psychiatric Appointment Comment: [phone] Apryl will schedule psychiatry after therapy appt Psychiatrist Release of Information: Obtained, Reviewed and Signed Therapist Name of Therapist: [facility] [place] Therapist's Date of Therapist Appointment: 05/11/19 Time of Therapist Appointment: 4pm Therapy Appointment Comment: [address] [facility] Therapist Release of Information: Obtained, Reviewed and Signed Gamb Cutter Name of Gamb Cutter: [facility] Phone Number for Gamb Cutter: [phone] Time of Appointment with Gamb Cutter: Follow up with any questions or concerns Case Management Appointment Comment: [address] [facility] Post Discharge Appointments Primary Care Physician Name Of Family Doctor: Dr. Kevin Mcgarry Primary Care Date of Appointment with PCP: 06/01/19 Time of Appointment with PCP: 10am Provider Appointment Comment: [address] [place] [id number] Specialist Name of Specialist: Ricardo Lara Phone Number for Specialist: [phone] Smoking Cessation Counseling Tobacco Cessation Medication Prescribed at Discharge: Not Applicable/Non-Smoker Contact Information Discharge Discharge Address: [address] [place] [address] Discharge Plan Discharge Items Patient Disposition: Home - Self-Care Reason For Visit: MDR Discharge Diagnosis: Major depressive disorder, recurrent, severe without psychosis Diphenhydramine overdose Alcohol and cannabis use disorder Activity: Per Instructions section Non-emergency contact: Primary Care Provider, Psychiatrist and Therapist Call non-emergency contact if: you have any medication questions and your symptoms worsen Follow-up/Referrals: [place] [Primary Care Provider] - Diet: Regular Addtl Attending Provider Instructions: SPECIAL CARE INSTRUCTIONS: 1. Follow through with your scheduled aftercare appointments. If unable to keep an appointment, please call to reschedule. 2. Take your medication only as prescribed. Medication should not be changed or stopped without the approval of your doctor. In the event of worsening symptoms or concerns about side effects, contact your doctor immediately. Recommend family keep all medications locked and dispense prescription medications to you daily initially, to limit access to large amounts of pills given overdose. This is part of your safety plan and can be reviewed with your outpatient clinicians and updated as your mood stabilizes. 3. Utilize new healthy coping skills, anger management skills, and stress management skills learned during your hospitalization. Journal feelings and process them with a support person. Identify stressors or situations that may result in relapse, deterioration or inappropriate behaviors and develop a plan to deal with those issues. 4. If your coping skills are ineffective and you are in crisis, contact your outpatient providers for direction. If unable to reach your providers, please call the CAN HELP LINE AT or go to the closest Emergency Room. 5. Do not drink alcohol or take un-prescribed drugs. 6. You have been provided with the Mental Health Advance Directives Pamphlet for your review. AFTERCARE APPOINTMENTS: * Please call your insurance company prior to your scheduled appointment to confirm your aftercare providers are covered. Take your insurance information to your appointments. WHO TO CALL AND WHEN: Medical Emergencies: For questions or emergencies related to your hospital stay, please contact the Inpatient Behavioral Health Unit at [phone]. A day treatment clinician/art therapist is on-call 10/12 for the Behavioral Health Unit for emergencies At any time you feel your situation is an emergency, you may also call 911 immediately. Your Doctors Instructions noted above were prepared by provider Betsy Spencer MD. Pending Studies at Discharge: No Stand-Alone Forms: My [facility], Smoking Cessation, Suicide Prevention Resources Medications and DC Order Prescriptions: New fluoxetine 40 mg capsule 40 mg PO DAILY Qty: 30 RF: 0 Continued albuterol sulfate [ProAir HFA] 90 mcg/actuation Hfa Aerosol Inhaler 1 puff INHALATION Q6H PRN (Reason: Shortness Of Breath Or Wheezing) RF: 0 Changed hydroxyzine HCl 25 mg tablet 25 mg PO UD Qty: 45 RF: 0 Discontinued fluoxetine [Prozac] 40 mg Capsule 40 mg PO DAILY RF: 0 hydroxyzine pamoate [Vistaril] 25 mg Capsule 25 mg PO QID PRN (Reason: Anxiety) RF: 0 Discharge Orders: Discharge Order (Routine); Ordered 05/06/19 Ordered By: Betsy Spencer Admission Data Admit Date/Time: 04/27/19 17:00 Attending Provider: Betsy Spencer Admit Provider: Domingo Eddy Primary Care Provider: [facility] Other Interventions: Discharge Summary Assessment (RN) Last Done: 05/06/19 11:06 PSY Interdisciplinary Discharge Planning Last Done: 05/06/19 09:56 Coding Level of Care Code 28856 D/C day mgmt > 30 min Diagnoses Suicidal ideation R45.851 Depression F32.9 Depression Type: unspecified Drug overdose T50.902A Encounter type: initial encounter Injury intent: intentional self-harm Asthma J45.909 Asthma complication type: unspecified Asthma persistence: unspecified Asthma severity: unspecified severity Polysubstance abuse F19.10
== END 2019-05-06 13:01 | disposition home or self-care (01) | DRG 885 ==
LOC: ED 10:15 → 3S 17:00 → SUATTDRO 17:00 → 3S 17:24